=== PATIENT | male | born 1950 | race Caucasian/White ===

== ENCOUNTER 2018-02-17 06:35 | Inpatient (IN) | payer MEDICARE ==
[~2018-02-17] VITALS: Ht 170.2 cm; Wt 107.8 kg
[2018-02-17 07:32] LABS: Basophils # (auto) 0.1 uL; Basophils % (auto) 0.8 % (0.0-2.0); Eosinophils # (auto) 0.1 uL; Eosinophils % (auto) 1.8 % (0.0-7.0); Hemoglobin 15.6 g/dL (13.5-17.5); Lymphocytes # (auto) 1.1 uL; Lymphocytes % (auto) 14.7 % (10.0-50.0); Mean Corpuscular Hemoglobin 31.9 pg (28.0-32.0); Mean Corpuscular Hgb Conc. 33.8 g/dL (32.0-36.0); Mean Corpuscular Volume 94.4 fL (80.0-100.0); Monocytes # (auto) 0.6 uL; Monocytes % (auto) 7.4 % (0.0-12.0); Neutrophils # (auto) 5.7 uL; Neutrophils % (auto) 75.3 % (37.0-80.0); Platelet Count (auto) 139 10^3/uL (140-450); Red Blood Cells 4.88 10^6/uL (4.5-5.90); Red Cell Distribution Width 14.5 % (11.8-14.3); White Blood Cell 7.5 10^3/uL (4.4-10.8)
[2018-02-17 07:48] LABS: Albumin 3.9 g/dL (3.4-5.0); Anion Gap 10 (5-15); BUN/Creatinine Ratio 14.4; Blood Urea Nitrogen 24 mg/dL (7-18); Calcium 9.1 mg/dL (8.5-10.1); Carbon Dioxide 24 mmol/L (21-32); Chloride 107 mmol/L (98-107); GFR African American 53 mL/min; GFR Non-African American 44 mL/min; Glucose 138 mg/dL (74-106); Potassium 3.6 mmol/L (3.5-5.1); Sodium 141 mmol/L (136-145)
[2018-02-17 07:53] LABS: Alanine Aminotransferase 47 U/L (16-61); Alkaline Phosphatase 100 U/L (45-117); Aspartate Aminotransferase 28 U/L (15-37); Bilirubin, Total 0.4 mg/dL (0.2-1.0); Total Protein 8.1 g/dL (6.4-8.2)
[2018-02-17] MEDS ORDERED: SODIUM CHLORIDE 0.9% 1,000 ML IVB ONE (07:53)
[2018-02-17] MEDS ORDERED: KETOROLAC TROMETH 30 MG/ML 1ML VIAL IV ONE ×2 (08:00→21:15)
[2018-02-17] MEDS ORDERED: ONDANSETRON HCL 4 MG/2 ML VIAL IV ONE (08:00)
[2018-02-17] MEDS: SODIUM CHLORIDE 0.9% 1,000 ML IV SCH ×6 (09:54→22:30)
[2018-02-17] MEDS ORDERED: MORPHINE SULFATE 8mg/ml INJ SDV IV PRN ×2 (10:00)
[2018-02-17] MEDS ORDERED: cefTRIAXone 1GM/10ml IVPUSH 10 ML IV ONE (10:00)
[2018-02-17] MEDS ORDERED: TEMAZEPAM 15 MG CAP PO PRN (10:00)
[2018-02-17] MEDS ORDERED: NITROGLYCERIN 0.4 MG SL TAB SL PRN (10:00)
[2018-02-17] MEDS ORDERED: DEXTROSE (50%) 50ML SYRG IV PRN (10:00)
[2018-02-17] MEDS: PANTOPRAZOLE 40 MG TAB PO SCH (10:00)
[2018-02-17] MEDS ORDERED: LORazepam 0.5 MG TAB PO PRN (10:00)
[2018-02-17 10:19] LABS: Amylase 44 U/L (25-115); Lipase 104 U/L (73-393)
[2018-02-17 12:00] VITALS: BP 125/79
[2018-02-17 12:04] VITALS: BP 125/79
[2018-02-17] MEDS ORDERED: ALLO300T2 PO (12:14)
[2018-02-17] MEDS ORDERED: FURO20TA3 PO (12:14)
[2018-02-17] MEDS ORDERED: BENA10TA9 PO (12:14)
[2018-02-17] MEDS ORDERED: POTA10TA51 PO (12:14)
[2018-02-17] MEDS ORDERED: ATEN-60 PO (12:14)
[2018-02-17] MEDS: ACCU-CHEK COMFORT CURVE STRIP VI SCH ×2 (13:10→17:39)
[2018-02-17] MEDS: HYDROcodone-ACET 5/325MG TAB PO PRN ×2 (14:58→22:27)
[2018-02-17 15:25] LABS: Urine Bacteria NONE SEEN /hpf (None Seen); Urine Blood 1+ /uL (Negative); Urine Mucus FEW (None Seen); Urine Specific Gravity 1.025 (1.001-1.035); Urine WBC 6 /hpf (0 - 3)
[2018-02-17 16:00] VITALS: BP 123/80
[2018-02-17] MEDS: PROMETHAZINE HCL 25 MG/ML 1ML IV PRN (21:31)
[2018-02-17 22:00] VITALS: BP 140/89
[2018-02-18 05:00] VITALS: BP 110/74
[2018-02-18] MEDS: SODIUM CHLORIDE 0.9% 1,000 ML IV SCH (05:12)
[2018-02-18] MEDS: MEPERIDINE HCL (25 MG/ML) 1ML VIAL IV PRN (06:00)
[2018-02-18] MEDS: ACCU-CHEK COMFORT CURVE STRIP VI SCH ×4 (06:00→17:06)
[2018-02-18] MEDS: PROMETHAZINE HCL 25 MG/ML 1ML IV PRN ×2 (06:33→20:23)
[2018-02-18 06:48] LABS: BUN/Creatinine Ratio 12.7; Calcium 8.2 mg/dL (8.5-10.1)
[2018-02-18 06:50] LABS: Bilirubin, Total 0.5 mg/dL (0.2-1.0); Total Protein 6.7 g/dL (6.4-8.2)
[2018-02-18 07:05] LABS: Potassium 4.3 mmol/L (3.5-5.1)
[2018-02-18 08:00] VITALS: BP 129/74
[2018-02-18] MEDS: PANTOPRAZOLE 40 MG TAB PO SCH (09:30)
[2018-02-18] MEDS: cefTRIAXone 1GM/10ml IVPUSH 10 ML IV SCH (09:30)
[2018-02-18 12:42] VITALS: BP 138/73
[2018-02-18 16:33] VITALS: BP 149/87
[2018-02-18] MEDS: HYDROcodone-ACET 5/325MG TAB PO PRN (17:18)
[2018-02-18 22:00] VITALS: BP 152/81
[2018-02-19 05:00] VITALS: BP 128/85
[2018-02-19 06:05] LABS: Basophils # (auto) 0 uL; Basophils % (auto) 0.4 % (0.0-2.0); Eosinophils # (auto) 0.2 uL; Eosinophils % (auto) 2.5 % (0.0-7.0); Hemoglobin 13.3 g/dL (13.5-17.5); Lymphocytes # (auto) 0.8 uL; Lymphocytes % (auto) 9.2 % (10.0-50.0); Mean Corpuscular Hemoglobin 32.2 pg (28.0-32.0); Mean Corpuscular Hgb Conc. 34.2 g/dL (32.0-36.0); Mean Corpuscular Volume 94.1 fL (80.0-100.0); Monocytes # (auto) 0.8 uL; Monocytes % (auto) 9.7 % (0.0-12.0); Neutrophils # (auto) 6.8 uL; Neutrophils % (auto) 78.2 % (37.0-80.0); Nucleated Red Blood Cells % 0.2 %; Platelet Count (auto) 106 10^3/uL (140-450); Red Blood Cells 4.14 10^6/uL (4.5-5.90); Red Cell Distribution Width 14.1 % (11.8-14.3); White Blood Cell 8.7 10^3/uL (4.4-10.8)
[2018-02-19 06:22] LABS: Albumin 3.2 g/dL (3.4-5.0); BUN/Creatinine Ratio 12.3; Bilirubin, Total 0.7 mg/dL (0.2-1.0); Calcium 8.3 mg/dL (8.5-10.1); Total Protein 6.8 g/dL (6.4-8.2)
[2018-02-19 09:26] VITALS: BP 137/80
[2018-02-19] MEDS: PANTOPRAZOLE 40 MG TAB PO SCH (09:30)
[2018-02-19] MEDS: cefTRIAXone 1GM/10ml IVPUSH 10 ML IV SCH (09:30)
[2018-02-19] MEDS: HYDROcodone-ACET 5/325MG TAB PO PRN ×2 (12:05→18:59)
[2018-02-19] MEDS: SODIUM CHLORIDE 0.9% 1,000 ML IV SCH ×2 (12:05→21:48)
[2018-02-19 13:00] VITALS: BP 142/84
[2018-02-19] MEDS: ACETAMINOPHEN 500 MG TAB PO PRN (15:52)
[2018-02-19 17:22] VITALS: BP 142/89
[2018-02-19] MEDS: PROMETHAZINE HCL 25 MG/ML 1ML IV PRN (21:01)
[2018-02-19] MEDS: MEPERIDINE HCL (25 MG/ML) 1ML VIAL IV PRN (21:01)
[2018-02-19 22:00] VITALS: BP 124/79
[2018-02-20 05:00] VITALS: BP 135/89
[2018-02-20 06:07] LABS: Basophils # (auto) 0 uL; Basophils % (auto) 0.2 % (0.0-2.0); Eosinophils # (auto) 0.2 uL; Eosinophils % (auto) 2.5 % (0.0-7.0); Hematocrit 39.1 % (41.0-53.0); Hemoglobin 13.1 g/dL (13.5-17.5); Lymphocytes # (auto) 0.9 uL; Lymphocytes % (auto) 8.9 % (10.0-50.0); Mean Corpuscular Hgb Conc. 33.5 g/dL (32.0-36.0); Mean Corpuscular Volume 95.7 fL (80.0-100.0); Monocytes # (auto) 1.1 uL; Monocytes % (auto) 11.6 % (0.0-12.0); Neutrophils # (auto) 7.4 uL; Neutrophils % (auto) 76.8 % (37.0-80.0); Nucleated Red Blood Cells % 0.1 %; Platelet Count (auto) 106 10^3/uL (140-450); Red Blood Cells 4.09 10^6/uL (4.5-5.90); Red Cell Distribution Width 14.5 % (11.8-14.3); White Blood Cell 9.7 10^3/uL (4.4-10.8)
[2018-02-20 06:12] LABS: Calcium 8.4 mg/dL (8.5-10.1); Potassium 4.1 mmol/L (3.5-5.1)
[2018-02-20 06:18] LABS: Bilirubin, Total 0.9 mg/dL (0.2-1.0); Total Protein 6.7 g/dL (6.4-8.2)
[2018-02-20 08:00] VITALS: BP 129/91
[2018-02-20] MEDS: HYDROcodone-ACET 5/325MG TAB PO PRN ×2 (08:31→20:26)
[2018-02-20] MEDS: SODIUM CHLORIDE 0.9% 1,000 ML IV SCH ×2 (09:31→17:21)
[2018-02-20] MEDS: cefTRIAXone 1GM/10ml IVPUSH 10 ML IV SCH (09:48)
[2018-02-20] MEDS: PANTOPRAZOLE 40 MG TAB PO SCH (09:48)
[2018-02-20] MEDS: PROMETHAZINE HCL 25 MG/ML 1ML IV PRN (12:40)
[2018-02-20] MEDS: ACETAMINOPHEN 500 MG TAB PO PRN (12:40)
[2018-02-20 12:43] VITALS: BP 128/76
[2018-02-20] MEDS ORDERED: MANNITOL 20 % (20GM/100ML) 62.5 ML IV ONE (14:45)
[2018-02-20 17:11] VITALS: BP 158/92
[2018-02-20] MEDS: TAMSULOSIN HYDROCHLORIDE 0.4 MG CAP PO SCH (17:21)
[2018-02-20 22:00] VITALS: BP 145/49
[2018-02-21] MEDS: SODIUM CHLORIDE 0.9% 1,000 ML IV SCH ×3 (00:04→23:46)
[2018-02-21] MEDS: ACETAMINOPHEN 500 MG TAB PO PRN (00:04)
[2018-02-21 05:00] VITALS: BP 114/87
[2018-02-21] MEDS: PROMETHAZINE HCL 25 MG/ML 1ML IV PRN (06:16)
[2018-02-21 08:00] VITALS: BP 142/89
[2018-02-21 08:34] LABS: Partial Thromboplastin Time 31.7 sec (23.78-33.04); Prothrombin Time 10.7 sec (9.27-12.13)
[2018-02-21] MEDS: cefTRIAXone 1GM/10ml IVPUSH 10 ML IV SCH (08:36)
[2018-02-21] MEDS: KETOROLAC TROMETH 30 MG/ML 1ML VIAL IV PRN ×2 (08:46→17:27)
[2018-02-21 08:52] VITALS: BP 142/89
[2018-02-21] MEDS: PANTOPRAZOLE 40 MG TAB PO SCH (09:20)
[2018-02-21 12:44] VITALS: BP 132/78
[2018-02-21 16:54] VITALS: BP 154/92
[2018-02-21] MEDS: TAMSULOSIN HYDROCHLORIDE 0.4 MG CAP PO SCH (17:18)
[2018-02-21 22:00] VITALS: BP 127/85
[2018-02-22] MEDS: PROMETHAZINE HCL 25 MG/ML 1ML IV PRN (03:07)
[2018-02-22] MEDS: KETOROLAC TROMETH 30 MG/ML 1ML VIAL IV PRN ×3 (03:07→17:26)
[2018-02-22 05:00] VITALS: BP 135/89
[2018-02-22 08:00] VITALS: BP 139/90
[2018-02-22 09:00] VITALS: BP 139/90
[2018-02-22] MEDS: PANTOPRAZOLE 40 MG TAB PO SCH (09:23)
[2018-02-22] MEDS: cefTRIAXone 1GM/10ml IVPUSH 10 ML IV SCH (09:23)
[2018-02-22] MEDS: SODIUM CHLORIDE 0.9% 1,000 ML IV SCH ×2 (09:24→19:48)
[2018-02-22 11:43] LABS: BUN/Creatinine Ratio 11.2; Potassium 3.9 mmol/L (3.5-5.1)
[2018-02-22 12:00] VITALS: BP 143/88
[2018-02-22] MEDS ORDERED: ONDANSETRON HCL 4 MG/2 ML VIAL ONE (12:10)
[2018-02-22] MEDS ORDERED: PROPOFOL 10 MG/ML 20 ML IV ONE (12:10)
[2018-02-22] MEDS ORDERED: fentaNYL CITRATE 100 MCG/2 ML VL ONE (12:10)
[2018-02-22] MEDS ORDERED: MIDAZOLAM HCL 1MG/1ML-2 ML VIAL ONE (12:10)
[2018-02-22] MEDS ORDERED: SODIUM CHLORIDE LOCK 10 ML ONE (12:10)
[2018-02-22] MEDS ORDERED: METOCLOPRAMIDE HCL 5MG/ml INJ 2ml VIAL IV ONE (12:30)
[2018-02-22] MEDS ORDERED: fentaNYL CITRATE 100 MCG/2 ML VL IV ONE (13:00)
[2018-02-22 17:00] VITALS: BP 140/72
[2018-02-22] MEDS: TAMSULOSIN HYDROCHLORIDE 0.4 MG CAP PO SCH (17:26)
[2018-02-22 22:00] VITALS: BP 145/88
[2018-02-23] MEDS: SODIUM CHLORIDE 0.9% 1,000 ML IV SCH (00:47)
[2018-02-23] MEDS: ACETAMINOPHEN 500 MG TAB PO PRN (04:26)
[2018-02-23 05:17] VITALS: BP 138/83
[2018-02-23 09:04] VITALS: BP 127/86
[2018-02-23] MEDS: cefTRIAXone 1GM/10ml IVPUSH 10 ML IV SCH (09:17)
[2018-02-23] MEDS: PANTOPRAZOLE 40 MG TAB PO SCH (09:17)
[2018-02-23 11:45] VITALS: BP 127/86
== END 2018-02-23 13:10 | disposition home or self-care (01) | DRG 690 ==
LOC: ER 06:35 → TELE 06:36 → TELE-WESTW 11:35
PROVIDERS: ADMIT Internal Medicine; ATTEND Family Medicine
PROC: 0TJB8ZZ Inspection of Bladder, Via Natural or Artificial Opening Endoscopic (ICD-10-PCS; principal; 2018-02-22 12:36)
DX: N13.6 Pyonephrosis (principal); N17.0 Acute kidney failure with tubular necrosis; K80.20 Calculus of gallbladder without cholecystitis without obstruction; I12.9 Hypertensive chronic kidney disease with stage 1 through stage 4 chronic kidney disease, or unspecified chronic kidney disease; N18.3 Chronic kidney disease, stage 3 (moderate); N40.0 Benign prostatic hyperplasia without lower urinary tract symptoms; F41.9 Anxiety disorder, unspecified; G47.00 Insomnia, unspecified; K57.30 Diverticulosis of large intestine without perforation or abscess without bleeding; R73.9 Hyperglycemia, unspecified; M10.9 Gout, unspecified; R79.89 Other specified abnormal findings of blood chemistry; Z88.1 Allergy status to other antibiotic agents; Z79.899 Other long term (current) drug therapy; Z71.3 Dietary counseling and surveillance
CPT/HCPCS: 36415; 71045; 74176; 80048; 80053; 81001; 82150; 82962; 83036; 83690; 84484; 85025; 85610; 85652; 85730; 86850; 86900; 86901; 87086; 93005; 94761; 96361; 96374; 96375; J1885; J2250; J2405; J2704

== ENCOUNTER 2024-11-10 22:05 | Inpatient (IN) | payer MEDICARE ==
[~2024-11-10] VITALS: Ht 165.1 cm; Wt 103.4 kg
[~2024-11-10 22:05] MED LIST: ALLO300T2 PO; ATEN-60 PO; BENA10TA90 PO; FURO20TA3 PO; POTA-36 PO
--- NOTE | 2024-11-10 22:37 | ED.PDOC ---
History of Present Illness HPI Comments 74-year-old male came to ER via EMS for flu like symptoms. Patient states, he has been having intermittent episodes of "shakes" since last night. He has been feeling unwell and weak. Complaining also of lower abdominal pain. Denies any fever. Persistence of symptoms "shakes" prompted patient to come to the ER. Chief Complaint: Flu like Time Seen by MD: 22:36 Primary Care Provider: unknown Reviewed Notes: Nurses Notes Allergies: Coded Allergies: Levofloxacin (Verified Allergy, Unknown, 02/17/18) Home Meds Reported Medications Benazepril Hcl (Benazepril Hcl) 10 Mg Tab, 1 TAB PO DAILY, #30 TAB 5 Refills 02/17/18 Allopurinol (Allopurinol) 300 Mg Tab, 300 MG PO DAILY for 30 Days, MG 02/17/18 Furosemide (Furosemide) 20 Mg Tab, 20 MG PO DAILY for 30 Days, MG 02/17/18 Potassium Chloride (POTASSIUM CHLORIDE CR) 10 Meq Tb, 1 TAB PO DAILY, #30 TAB 5 Refills 02/17/18 Atenolol (Atenolol) 25 Mg Tab, 25 MG PO DAILY for 30 Days, MG 02/17/18 Information Source: Patient Mode of Arrival: EMS Severity: Moderate Timing: Hours Duration: Intermittent Past Medical History PAST MEDICAL HISTORY: Gout, HTN Surgical History: Denies all surgeries Family History Family History: Reviewed,noncontributory to illness Social History Smoker: Non-Smoker Alcohol: Rarely Drugs: Denies Drug Use Lives In: Home Constitutional: reports: weakness; denies: chills, diaphoresis, fatigue, fever, malaise, sweats, others EENTM: denies: blurred vision, double vision, ear bleeding, ear discharge, ear drainage, ear pain, ear ringing, eye pain, eye redness, hearing loss, mouth pain, mouth swelling, nasal discharge, nose bleeding, nose congestion, nose pain, photophobia, tearing, throat pain, throat swelling, voice changes, others Respiratory: denies: cough, hemoptysis, orthopnea, SOB at rest, shortness of breath, SOB with excertion, stridor, wheezing, others Cardiovascular: denies: chest pain, dizzy spells, diaphoresis, Dyspnea on exertion, edema, irregular heart beat, left arm pain, lightheadedness, palpitations, PND, syncope, others Gastrointestinal: denies: abdomen distended, abdominal pain, blood streaked bowels, constipated, diarrhea, dysphagia, difficulty swallowing, hematemesis, melena, nausea, poor appetite, poor fluid intake, rectal bleeding, rectal pain, vomiting, others Genitourinary: denies: burning, dysuria, flank pain, frequency, hematuria, incontinence, penile discharge, penile sore, pain, testicle pain, testicle swelling, urgency, others Neurological: reports: tremors; denies: dizziness, fainting, headache, left sided numbness, left sided weakness, numbness, paresthesia, pre-existing deficit, right sided numbness, right sided weakness, seizure, speech problems, tingling, weakness, others Musculoskeletal: denies: back pain, gout, joint pain, joint swelling, muscle pain, muscle stiffness, neck pain, others Integumetry: denies: bruises, change in color, change in hair/nails, dryness, laceration, lesions, lumps, rash, wounds, others Allergic/Immunocompromised: denies: Difficulty Healing, Frequent Infections, Hives, Itching, others Hematologic/Lymphatic: denies: anemia, blood clots, easy bleeding, easy bruising, swollen glands, others Endocrine: denies: excessive hunger, excessive sweating, excessive thirst, excessive urination, flushing, intolerance to cold, intolerance to heat, une xplained weight gain, unexplained weight loss, others Psychiatric: denies: anxiety, bipolar disorder, depression, hopeless, panic disorder, schizophrenia, sleepless, suicidal, others Physical Exam General Appearance: No Apparent Distress, Normal HEENT: Normal ENT Inspection, Pharynx Normal, TMs Normal Neck: Full Range of Motion, Non-Tender, Normal, Normal Inspection Respiratory: Chest Non-Tender, Lungs Clear, No Accessory Muscle Use, No Respiratory Distress, Normal Breath Sounds Cardiovascular: No Edema, No JVD, No Murmur, No Gallop, Normal Peripheral Pulses, Regular Rate/Rhythm Breast Exam: Deferred Gastrointestinal: No Organomegaly, Non Tender, No Pulsatile Mass, Normal Bowel Sounds, Soft Genitalia: Deferred Pelvic: Deferred Rectal: Deferred Extremities: No calf tenderness, Normal capillary refill, Normal inspection, Normal range of motion, Non-tender, No pedal edema Musculoskeletal : Apperance: Normal Neurologic: Alert, front elevator operator II-XII nml as Tested, No Motor Deficits, Normal Affect, Normal Mood, No Sensory Deficits Cerebellar Function: Normal Reflexes: Normal Skin: Dry, Normal Color, Warm Lymphatic: No Adenopathy Was a procedure done? Was a procedure done?: No Differential Dx Considerations may include: Anemia, electrolyte imbalance, viral syndrome, influenza X-Ray, Labs, Meds, VS Vital Signs Date Time Temp Pulse Resp B/P (MAP) Pulse Ox O2 Delivery O2 Flow Rate FiO2 11/10/24 22:20 100.3 120 20 102/61 (75) 94 11/10/24 22:12 117 Lab Test 11/11/24 01:57 11/10/24 23:30 11/10/24 22:48 11/10/24 22:31 Range/Units Troponin I High Sensitivity Pending 94 *H 89 *H </=54 ng/L Influenza Type A Antigen Negative Negative Influenza Type B Antigen Negative Negative SARS-CoV-2 Antigen (Rapid) Negative NEGATIVE White Blood Count 6.3 4.4-10.8 10^3/uL Red Blood Count 4.32 L 4.5-5.90 10^6/uL Hemoglobin 13.2 L 13.5-17.5 g/dL Hematocrit 40.5 L 41.0-53.0 % Mean Corpuscular Volume 93.8 80.0-100.0 fL Mean Corpuscular Hemoglobin 30.6 28.0-32.0 pg Mean Corpuscular Hemoglobin Concent 32.6 32.0-36.0 g/dL Red Cell Distribution Width 15.6 H 11.8-14.3 % Platelet Count 100 L 140-450 10^3/uL Mean Platelet Volume 10.2 6.9-10.8 fL Neutrophils (%) (Auto) 92.8 H 37.0-80.0 % Lymphocytes (%) (Auto) 4.5 L 10.0-50.0 % Monocytes (%) (Auto) 0.8 0.0-12.0 % Eosinophils (%) (Auto) 0.6 0.0-7.0 % Basophils (%) (Auto) 1.3 0.0-2.0 % Neutrophils # (Auto) 5.8 1.6-8.6 10 ^3/uL Lymphocytes # (Auto) 0.3 L 0.4-5.4 10 ^3/uL Monocytes # (Auto) 0.1 0-1.3 10 ^3/uL Eosinophils # (Auto) 0 0-0.8 10 ^3/uL Basophils # (Auto) 0.1 0-0.2 10 ^3/uL Nucleated Red Blood Cells 0.1 % Sodium Level 139 136-145 mmol/L Potassium Level 4.2 3.5-5.1 mmol/L Chloride Level 105 98-107 mmol/L Carbon Dioxide Level 19 L 20-31 mmol/L Anion Gap 15 5-15 Blood Urea Nitrogen 31 H 9-23 mg/dL Creatinine 2.16 H 0.700-1.30 mg/dL Glomerular Filtration Rate Calc 32 >90 mL/min BUN/Creatinine Ratio 14.4 10.0-20.0 Serum Glucose 106 74-106 mg/dL Calcium Level 9.8 8.7-10.4 mg/dL Total Bilirubin 1.3 H 0.2-1.0 mg/dL Aspartate Amino Transferase (AST) 24 13-40 U/L Alanine Aminotransferase (ALT) 25 7-40 U/L Alkaline Phosphatase 102 46-116 U/L Total Protein 7.1 5.7-8.2 g/dL Albumin 4.1 3.2-4.8 g/dL Lipase 28 12-53 U/L Current Medications Medications (Trade) Dose Ordered Sig/Akhil Route Start Time Stop Time Status Last Admin Sodium Chloride 1,000 ml @ 1,000 mls/hr Q1H ONCE IV 11/10/24 22:15 11/10/24 23:14 DC 11/10/24 22:48 Ondansetron HCl (Zofran) 4 mg ONCE ONCE IV 11/10/24 22:15 11/10/24 22:16 DC 11/10/24 22:48 Time of 1ST Reevaluation: 22:30 Reevaluation 1ST: Improved Patient Education/Counseling: Diagnosis, Treatment Family Education/Counseling: No Family Present Departure 1 Departure Time of Disposition: 02:04 (Patient presented with abdominal pain that was concerning for possible appendicits, gastritis, cholecystitis, colitis, gastroenteritis, sbo, or orther possible surgical emergency. Data: 1. I ordered and reviewed the result of at least 3 labs including a CBC, BMP, and Urinalysis. 2. I independently interpreted the following tests: CT Abdoment and Pelvis is concerning for left renal colic with hydro nephrosis .Risk:This patient has a high risk of morbidity due to further diagnostic testing or treatment and may suffer from an acute abdominal process disorder. Workup reveals elevated troponin and stone in the left kidney. and patient should be admitted for further workup. and possible expert consultation. ) Impression: Primary Impression: Renal colic on left side Additional Impressions: Elevated troponin Generalized weakness Disposition: ADMITTED INPATIENT Admit to: Med Surg Condition: Guarded Critical Care Note Critical Care Time?: Yes Critical care comment: Intractable abdominal pain Authorized and Performed by: Basilio Daniels MD Total critical care time: Approximately 40 minutes Due to a high probability of clinically significant, life threatening deteriora tion, the patient required my highest level of preparedness to intervene emergently and I personally spent this critical care time directly and personally managing the patient. This critical care time included obtaining a history; examining the patient; pulse oximetry; ordering and review of studies; arranging urgent treatment with development of a management plan; evaluation of patient's response to treatment; frequent reassessment; and, discussions with other providers. This critical care time was performed to assess and manage the high probability of imminent, life-threatening deterioration that could result in multi-organ failure. It was exclusive of separately billable procedures and treating other patients and teaching time. Please see my other sections and the rest of the note for further information on patient assessment and treatment. Stability Stability form required: No Heart Score Heart Score: Heart Score Response (Comments) Value History N/A 0 EKG N/A 0 Age N/A 0 Risk Factors N/A 0 Troponin N/A 0 Total 0 I personally scribed for BASILIO DANIELS MD ([email or web address]) on 11/10/24 at 22:37. Electronically submitted by Jose Chau ([email or web address]). BASILIO DANIELS MD Nov 10, 2024 22:37
[2024-11-10] MEDS: MORPHINE SULFATE 4 MG/ML SYR/VIAL IV ONE (22:44)
[2024-11-10 22:46] LABS: Basophils # (auto) 0.1 10 ^3/uL (0-0.2); Basophils % (auto) 1.3 % (0.0-2.0); Eosinophils # (auto) 0 10 ^3/uL (0-0.8); Eosinophils % (auto) 0.6 % (0.0-7.0); Hematocrit 40.5 % (41.0-53.0); Hemoglobin 13.2 g/dL (13.5-17.5); Lymphocytes # (auto) 0.3 10 ^3/uL (0.4-5.4); Lymphocytes % (auto) 4.5 % (10.0-50.0); Mean Corpuscular Hemoglobin 30.6 pg (28.0-32.0); Mean Corpuscular Hgb Conc. 32.6 g/dL (32.0-36.0); Mean Corpuscular Volume 93.8 fL (80.0-100.0); Monocytes # (auto) 0.1 10 ^3/uL (0-1.3); Monocytes % (auto) 0.8 % (0.0-12.0); Neutrophils # (auto) 5.8 10 ^3/uL (1.6-8.6); Neutrophils % (auto) 92.8 % (37.0-80.0); Nucleated Red Blood Cells % 0.1 %; Platelet Count (auto) 100 10^3/uL (140-450); Red Blood Cells 4.32 10^6/uL (4.5-5.90); Red Cell Distribution Width 15.6 % (11.8-14.3); White Blood Cell 6.3 10^3/uL (4.4-10.8)
[2024-11-10] MEDS: SODIUM CHLORIDE 0.9% 1,000 ML IV ONE (22:48)
[2024-11-10] MEDS: ONDANSETRON HCL 4 MG/2 ML VIAL IV ONE (22:48)
[2024-11-10 23:03] LABS: Alanine Aminotransferase 25 U/L (7-40); Albumin 4.1 g/dL (3.2-4.8); Alkaline Phosphatase 102 U/L (46-116); Anion Gap 15 (5-15); Aspartate Aminotransferase 24 U/L (13-40); BUN/Creatinine Ratio 14.4 (10.0-20.0); Calcium 9.8 mg/dL (8.7-10.4); Chloride 105 mmol/L (98-107); Glucose 106 mg/dL (74-106); Lipase 28 U/L (12-53); Potassium 4.2 mmol/L (3.5-5.1); Sodium 139 mmol/L (136-145); Total Protein 7.1 g/dL (5.7-8.2)
[2024-11-10 23:04] LABS: Bilirubin, Total 1.3 mg/dL (0.2-1.0); Blood Urea Nitrogen 31 mg/dL (9-23); Carbon Dioxide 19 mmol/L (20-31)
[2024-11-11 00:10] LABS: Rapid Influenza A Negative (Negative); Rapid Influenza B Negative (Negative)
[2024-11-11 00:11] LABS: COVID19 ANTIGEN SOFIA FIA NEGATIVE (NEGATIVE)
[2024-11-11] MEDS: IOHEXOL 300 MG/ML 100ML BOTTLE IJ ONE (00:16)
--- NOTE | 2024-11-11 00:29 | DVH ---
CHEST RADIOGRAPH Indication: abdominal pain Technique: Single frontal view of the chest was obtained COMPARISON: None FINDINGS: Lines and Tubes: None Lungs: Mild bibasilar subsegmental atelectasis/consolidation. Pleura: No effusion. No pneumothorax. Cardiomediastinal contours: Unremarkable Bones: Unremarkable IMPRESSION: Mild bibasilar subsegmental atelectasis/consolidation.
--- NOTE | 2024-11-11 01:05 | DVH ---
Exam: CT CT AB PEL WITH IV CON ONLY History: abdominal pain COMPARISON: None Technique: Multidetector spiral CT of the abdomen and pelvis was performed from lung bases to pubic s ymphysis. Intravenous contrast was administered during this examination. Portal venous imaging was obtained. Axial, coronal and sagittal multiplanar reformats were performed by the technologist on a separate workstation. Radiation Dose : 1. Abdomen/Pelvis: CTDIvol mGy, DLP mGy*cm. CONTRAST: Type of contrast: Contrast injected: ml Contrast ingested: ml Findings: Lung Bases: No abnormality demonstrated. Liver: Liver is normal in size. No focal lesions. Normal hepatic vascular enhancement. Gallbladder and Biliary Tree: Calcified gallstone measuring approximately 2 cm is noted in the gallbl adder which otherwise appears unremarkable. No evidence of biliary ductal dilatation. Spleen: No abnormality demonstrated. Pancreas: No abnormality demonstrated. Adrenal Glands: No abnormality demonstrated. Kidneys: There is perinephric stranding around the left kidney and mild left-sided hydronephrosis sec ondary to an obstructing calculus in the left proximal ureter measuring approximately 10 mm. Addition al nonobstructing calculi are noted in the upper and lower poles of the left kidney and in the lower pole of the right kidney. Bilateral renal cysts noted. Bladder: Unremarkable Bowel: Stomach appears grossly unremarkable. No dilated or thick-walled loops of large or small bowel noted. Left-sided colonic diverticulosis predominantly in the sigmoid colon without evidence of acu te diverticulitis. Appendix is not visualized; however, no secondary findings of acute appendicitis i dentified. Ascites: Absent Lymphadenopathy: No evidence of lymphadenopathy. Abdominal Wall and Mesentery: Small fat containing umbilical hernia. Vasculature: Mild atherosclerotic changes in abdominal aorta and iliac arteries without aneurysm. Pelvic Organs: Prostatomegaly. Calcifications / calculi noted in the prostate gland / base of urinary bladder. Musculoskeletal: No bony lesions are fracture. IMPRESSION: Perinephric stranding around the left kidney and mild left-sided hydronephrosis secondary to an obstr ucting calculus in the left proximal ureter measuring approximately 10 mm. Additional nonobstructing calculi in both kidneys. Left-sided colonic diverticulosis predominantly in the sigmoid colon without evidence of acute diver ticulitis. Cholelithiasis. Radiation optimization: All CT scans at this facility use at least one of these dose optimization terese hniques: automated exposure control mA and/or kV adjustment per patient size (includes targeted exam s where dose is matched to clinical indication) or iterative reconstruction.
[2024-11-11] MEDS: SODIUM CHLORIDE 0.9% 1,000 ML IV SCH ×3 (02:00→09:40)
[2024-11-11] MEDS: KETOROLAC TROMETH 30 MG/ML 1ML VIAL IV ONE (03:43)
[2024-11-11] MEDS: TAMSULOSIN HYDROCHLORIDE 0.4 MG CAP PO ONE (03:56)
[2024-11-11] MEDS: cefTRIAXone 1GM/50ML D5W 50 ML IV ONE (03:56)
[2024-11-11] MEDS: SODIUM CHLORIDE 0.9% 2,000 ML IV ONE (04:07)
[2024-11-11 04:12] VITALS: PULSE 84; RESP 17; O2SAT 93
[2024-11-11] MEDS ORDERED: NITROGLYCERIN 0.4 MG SL TAB SL PRN (04:15)
[2024-11-11] MEDS ORDERED: DOCUSATE SOD 100 MG CAP PO PRN (04:15)
[2024-11-11] MEDS ORDERED: ONDANSETRON HCL 4 MG/2 ML VIAL IV PRN (04:15)
[2024-11-11] MEDS ORDERED: ACETAMINOPHEN 325 MG TAB PO PRN (04:15)
[2024-11-11] MEDS ORDERED: MORPHINE SULFATE INJ 2 MG/ml SYRG IV PRN (04:15)
[2024-11-11] MEDS ORDERED: hydrALAZINE HCL 20 MG/ML VL IV PRN (04:15)
[2024-11-11] MEDS: ASPirin 81 mg TAB PO ONE (04:44)
--- NOTE | 2024-11-11 04:46 | DVHHP2 ---
History of Present Illness Reason for Visit: Generalized weakness History of Present Illness The patient is a 74-year-old male with past medical history of gout and hypertension who presented to [facility] ED with complaint of generalized weakness. Patient reports symptoms progressively get worse with lower abdominal pain, episodes of tremors, getting worse that prompted this visit. Patient was seen and evaluated in the ED, laboratory data shows WBC 6.3, platelets 100, sodium 139, potassium 4.2, BUN 31, creatinine 2.16, GFR 32, glucose 106, total bilirubin 1.3, troponin 89, blood pressure 102/61, heart rate 120 trending down to 90, temperature 100.3 F trending down to 97.8 F, O2 saturation 94% on oxygen. Abdomen/pelvis CT revealing perinephric stranding around the left kidney and mild left-sided hydronephrosis secondary to an obstructing calculus in the left proximal ureter measuring a proximally 10 mm, left-sided colonic diverticulosis predominantly in the sigmoid colon without evidence of acute diverticulitis, cholelithiasis. Chest x-ray revealing mild bibasilar subsegmental atelectasis/consolidations. Patient was started on IV antibiotic regimen Rocephin, please see medication orders section in the computer. On my assessment, patient denied chest pain, no headache, no dizziness, no abdominal pain, no diarrhea, no nausea, no vomiting, no chills. Patient was admitted for further evaluation and medical management. Past Medical History Gout, HTN Past Surgical History Denies all surgeries Family History Reviewed, noncontributory to the management of this case. Past Social History The patient lives at home, denies smoking, alcohol or illicit drugs abuse. Review of Systems Constitutional: Yes: Weakness; No: Fever, Chills, Sweats, Malaise, Other Eyes: No: Pain, Vision change, Conjunctivae inflammation, Eyelid inflammation, Other, Redness ENT: No: Ear pain, Ear discharge, Nose pain, Nose discharge, Nose congestion, Mouth pain, Mouth swelling, Throat pain, Throat swelling, Other Respiratory: No: Cough, Dry, Shortness of breath, SOB with excertion, Wheezing, Hemoptysis, Pleuritic Pain, Sputum, Wheezing, Other Cardiovascular: No: Chest Pain, Palpitations, Orthopnea, Paroxysmal Noc. Dyspnea, Edema, Lt Headedness, Other Gastrointestinal: No: Nausea, Vomiting, Abdominal Pain, Diarrhea, Constipation, Melena, Hematochezia, Other Genitourinary: No Dysuria, No Frequency, No Incontinence, No Hematuria, No Retention, No Other Musculoskeletal: No: other, neck pain, shoulder pain, arm pain, back pain, hand pain, leg pain, foot pain Skin: No: Rash, Lesions, Jaundice, Bruising, Other Neurological: Other (Tremors); No: Weakness, Numbness, Incoordination, Change in speech, Confusion, Seizures Allergies: Coded Allergies: Levofloxacin (Verified Allergy, Unknown, 02/17/18) Exam Vital Signs Vital Signs Date Time Temp Pulse Resp B/P (MAP) Pulse Ox O2 Delivery O2 Flow Rate FiO2 11/11/24 03:30 97.8 90 16 85/54 (64) 94 97.8 General Appearance: Alert, Oriented X3, Cooperative, No acute distress HEENT: Atraumatic, PERRLA, EOMI, Mucous membr. moist/pink Respiratory: Clear to auscultation, Normal air movement Cardiovascular: Regular rate, Normal S1, Normal S2, No murmurs Abdominal: Normal bowel sounds, Soft, No tenderness, No hepatospenomegaly, No masses Extremities: No clubbing, No cyanosis, No edema, Normal pulses, No tenderness/swelling Skin: No rashes, No breakdown, No significant lesion Neuro: Normal speech, Normal tone, Sensation intact, Cranial nerves 3-12 NL, Reflexes 2+, Other (Generalized weakness) Psych/Mental Status: Mental status NL, Mood NL Labs/Xrays Labs Test 11/11/24 01:57 11/10/24 22:48 11/10/24 22:31 Range/Units Troponin I High Sensitivity 102 *H </=54 ng/L Influenza Type A Antigen Negative Negative Influenza Type B Antigen Negative Negative SARS-CoV-2 Antigen (Rapid) Negative NEGATIVE White Blood Count 6.3 4.4-10.8 10^3/uL Red Blood Count 4.32 L 4.5-5.90 10^6/uL Hemoglobin 13.2 L 13.5-17.5 g/dL Hematocrit 40.5 L 41.0-53.0 % Mean Corpuscular Volume 93.8 80.0-100.0 fL Mean Corpuscular Hemoglobin 30.6 28.0-32.0 pg Mean Corpuscular Hemoglobin Concent 32.6 32.0-36.0 g/dL Red Cell Distribution Width 15.6 H 11.8-14.3 % Platelet Count 100 L 140-450 10^3/uL Mean Platelet Volume 10.2 6.9-10.8 fL Neutrophils (%) (Auto) 92.8 H 37.0-80.0 % Lymphocytes (%) (Auto) 4.5 L 10.0-50.0 % Monocytes (%) (Auto) 0.8 0.0-12.0 % Eosinophils (%) (Auto) 0.6 0.0-7.0 % Basophils (%) (Auto) 1.3 0.0-2.0 % Neutrophils # (Auto) 5.8 1.6-8.6 10 ^3/uL Lymphocytes # (Auto) 0.3 L 0.4-5.4 10 ^3/uL Monocytes # (Auto) 0.1 0-1.3 10 ^3/uL Eosinophils # (Auto) 0 0-0.8 10 ^3/uL Basophils # (Auto) 0.1 0-0.2 10 ^3/uL Nucleated Red Blood Cells 0.1 % Sodium Level 139 136-145 mmol/L Potassium Level 4.2 3.5-5.1 mmol/L Chloride Level 105 98-107 mmol/L Carbon Dioxide Level 19 L 20-31 mmol/L Anion Gap 15 5-15 Blood Urea Nitrogen 31 H 9-23 mg/dL Creatinine 2.16 H 0.700-1.30 mg/dL Glomerular Filtration Rate Calc 32 >90 mL/min BUN/Creatinine Ratio 14.4 10.0-20.0 Serum Glucose 106 74-106 mg/dL Calcium Level 9.8 8.7-10.4 mg/dL Total Bilirubin 1.3 H 0.2-1.0 mg/dL Aspartate Amino Transferase (AST) 24 13-40 U/L Alanine Aminotransferase (ALT) 25 7-40 U/L Alkaline Phosphatase 102 46-116 U/L Total Protein 7.1 5.7-8.2 g/dL Albumin 4.1 3.2-4.8 g/dL Lipase 28 12-53 U/L PATIENT: JUMANA JENNINGS ACCT: [id number] UNIT: [id number] : 1950 LOC: ER ROOM / BED: / AGE / SEX: 74 / M ADM STATUS: REG ER SERVICE 2213 ORDERING PHYSICIAN: BASILIO ANGULO MD PROCEDURE(s): ABPLIV - CT AB PEL WITH IV CON ONLY REASON: abdominal pain ORDER NUMBER(s): [id number], ACCESSION NUMBER(s): [id number] Exam: CT CT AB PEL WITH IV CON ONLY History: abdominal pain COMPARISON: None Technique: Multidetector spiral CT of the abdomen and pelvis was performed from lung bases to pubic symphysis. Intravenous contrast was administered during this examination. Portal venous imaging was obtained. Axial, coronal and sagittal multiplanar reformats were performed by the technologist on a separate workstation. Radiation Dose: 1. Abdomen/Pelvis: CTDIvol mGy, DLP mGy*cm. CONTRAST: Type of contrast: Contrast injected: ml Contrast ingested: ml Findings: Lung Bases: No abnormality demonstrated. Liver: Liver is normal in size. No focal lesions. Normal hepatic vascular enhancement. Gallbladder and Biliary Tree: Calcified gallstone measuring approximately 2 cm is noted in the gallbladder which otherwise appears unremarkable. No evidence of biliary ductal dilatation. Spleen: No abnormality demonstrated. Pancreas: No abnormality demonstrated. Adrenal Glands: No abnormality demonstrated. Kidneys: There is perinephric stranding around the left kidney and mild left- sided hydronephrosis secondary to an obstructing calculus in the left proximal ureter measuring approximately 10 mm. Additional nonobstructing calculi are noted in the upper and lower poles of the left kidney and in the lower pole of the right kidney. Bilateral renal cysts noted. Bladder: Unremarkable Bowel: Stomach appears grossly unremarkable. No dilated or thick-walled loops of large or small bowel noted. Left-sided colonic diverticulosis predominantly in the sigmoid colon without evidence of acute diverticulitis. Appendix is not visualized; however, no secondary findings of acute appendicitis identified. Ascites: Absent Lymphadenopathy: No evidence of lymphadenopathy. Abdominal Wall and Mesentery: Small fat containing umbilical hernia. Vasculature: Mild atherosclerotic changes in abdominal aorta and iliac arteries without aneurysm. Pelvic Organs: Prostatomegaly. Calcifications/calculi noted in the prostate gland/base of urinary bladder. Musculoskeletal: No bony lesions are fracture. IMPRESSION: Perinephric stranding around the left kidney and mild left-sided hydronephrosis secondary to an obstructing calculus in the left proximal ureter measuring approximately 10 mm. Additional nonobstructing calculi in both kidneys. Left-sided colonic diverticulosis predominantly in the sigmoid colon without evidence of acute diverticulitis. Cholelithiasis. ORDERING PHYSICIAN: BASILIO ANGULO MD PROCEDURE(s): CXRP - CHEST PORTABLE REASON: abdominal pain ORDER NUMBER(s): [id number], ACCESSION NUMBER(s): [id number] CHEST RADIOGRAPH Indication: abdominal pain Technique: Single frontal view of the chest was obtained COMPARISON: None FINDINGS: Lines and Tubes: None Lungs: Mild bibasilar subsegmental atelectasis/consolidation. Pleura: No effusion. No pneumothorax. Cardiomediastinal contours: Unremarkable Bones: Unremarkable IMPRESSION: Mild bibasilar subsegmental atelectasis/consolidation. Assessment/Plan Assessment/Plan Renal colic on left side Elevated troponin Fever, unspecified Left hydronephrosis Pneumonia, unspecified organisms Generalized weakness Acute on chronic renal failure Plan 1. Admit to telemetry unit 2. Breathing treatment 3. Pain control management 4. IV antibiotic management 5. Management of fluids and electrolytes 6. Consultation for hospitalist 7. Diagnostic test abdomen/pelvis CT 8. DVT prophylaxis-on aspirin 9. Repeat labs CBC, CMP in a.m. 10. Home medication reviewed and reconciled 11. Continue with current medical management 12. Treatment plan discussed with patient and RN. Patient verbalized understanding. Plan discussed with: Patient, Other (RN) My Orders Orders - CONCEPCIÓN ALCOCER DNP Procedure Category Date Status Time Complete Blood Count LAB 11/11/24 Transmitted 04:06 Comprehensive LAB 11/11/24 Transmitted Metabolic Panel 04:06 Tamsulosin PHA 11/11/24 Transmitted Hydrochloride (Flomax) 18:00 Allopurinol Tablet PHA 11/11/24 Transmitted (Zyloprim Tablet) 10:00 Aspirin Tablet PHA 11/11/24 Transmitted 10:00 Aspirin Tablet PHA 11/11/24 Transmitted 04:15 *[facility] CONS 11/11/24 Transmitted -[place] 04:06 Hydralazine Injection PHA 11/11/24 Transmitted (Apresoline Inject 04:15 Admit ADMIT 11/11/24 Transmitted 04:06 Allergies ANDREY 11/11/24 Transmitted 04:06 Code Status CODE 11/11/24 Transmitted 04:06 0.9% Ns 1000 Ml PHA 11/11/24 Transmitted 04:15 Oxygen Per Hour RT 11/11/24 Transmitted 04:06 Hydrocodone-Acet PHA 11/11/24 Transmitted 5/325mg Tab ([place] 04:15 Ondansetron Hcl PHA 11/11/24 Transmitted (Zofran) 04:15 Docusate Sodium [facility] 11/11/24 Transmitted Capsule (Colace 04:15 Complete Blood Count LAB 11/12/24 Verified 04:00 Comprehensive LAB 11/12/24 Verified Metabolic Panel 04:00 Cardiac DIET 11/11/24 Transmitted Diet-2gna,Lofat,Lochol Breakfast Condition: Serious [facility] 11/11/24 Transmitted 04:06 Acetaminophen Tablet [facility] 11/11/24 Transmitted (Tylenol Tablet) 04:15 Bedrest With Bathroom [facility] 11/11/24 Transmitted Privileg 04:06 Sequential [facility] 11/11/24 Transmitted Compression Device Nitroglycerin [facility] 11/11/24 Transmitted Sublingual (Ntrostat 04:15 Morphine Sulfate [facility] 11/11/24 Transmitted Injection 04:15 Stat Ekg For Chest [facility] 11/11/24 Transmitted Pain 04:06 Notify Md Of Changes [facility] 11/11/24 Transmitted From Base 04:06 Oil Deliverer For [facility] 11/11/24 Transmitted 24 Hours 04:06 Emergency Dysrhythmia [facility] 11/11/24 Transmitted Protocol 04:06 Rhythm Strips Once [facility] 11/11/24 Transmitted Every Shift 04:06 Oxygen By Nasal 11/11/24 Transmitted Cannula 04:06 Problem List: (1) Renal colic on left side (2) Elevated troponin (3) Fever, unspecified (4) Generalized weakness (5) Acute on chronic renal failure (6) Hydronephrosis, left (7) Pneumonia, unspecified organism Date of Service: Nov 11, 2024 Billing Provider: CONCEPCIÓN ALCOCER DNP Common Visit Codes: [id number] INP/OBS CARE (HIGH) CONCEPCIÓN ALCOCER DNP Nov 11, 2024 04:46
--- NOTE | 2024-11-11 04:51 | ECG ---
[facility] Test Date: 2024-11-10 Test Time: 22:12:28 Pat Name: JUAMNA JENNINGS Department: EMS Room: [address] [place] [address] Gender: M Medical Videographer: TIARA : 1950 Requested By: BASILIO ANGULO Order Number: [id number] Reading MD: Waqas Carvajal Measurements Intervals [place] Rate: 117 P: 43 PA: 158 QRS: -63 QRSD: 89 T: 37 QT: 302 QTc: 422 Interpretive Statements Sinus tachycardia Left anterior fascicular block Consider right ventricular hypertrophy Electronically Signed On 11-11-2024 18:48:53 PST by Waqas Carvajal Please click the below link to view image of tracing.
[2024-11-11] MEDS: AZITHROMYCIN 500MG/ 250ML 250 ML IV ONE (04:54)
[2024-11-11 05:29] LABS: Basophils # (auto) 0 10 ^3/uL (0-0.2); Eosinophils # (auto) 0 10 ^3/uL (0-0.8); Eosinophils % (auto) 0.1 % (0.0-7.0); Hematocrit 35.6 % (41.0-53.0); Hemoglobin 11.6 g/dL (13.5-17.5); Lymphocytes # (auto) 0.4 10 ^3/uL (0.4-5.4); Mean Corpuscular Hemoglobin 30.6 pg (28.0-32.0); Mean Corpuscular Hgb Conc. 32.5 g/dL (32.0-36.0); Monocytes # (auto) 0.9 10 ^3/uL (0-1.3); Monocytes % (auto) 5.2 % (0.0-12.0); Neutrophils # (auto) 16.3 10 ^3/uL (1.6-8.6); Neutrophils % (auto) 92.7 % (37.0-80.0); Platelet Count (auto) 75 10^3/uL (140-450); Red Blood Cells 3.79 10^6/uL (4.5-5.90); Red Cell Distribution Width 15.9 % (11.8-14.3); White Blood Cell 17.6 10^3/uL (4.4-10.8)
[2024-11-11 05:37] LABS: Alanine Aminotransferase 22 U/L (7-40); Albumin 3.5 g/dL (3.2-4.8); Alkaline Phosphatase 58 U/L (46-116); Anion Gap 11 (5-15); Aspartate Aminotransferase 21 U/L (13-40); BUN/Creatinine Ratio 14.2 (10.0-20.0); Calcium 8.8 mg/dL (8.7-10.4); Carbon Dioxide 21 mmol/L (20-31); Chloride 107 mmol/L (98-107); Potassium 4.4 mmol/L (3.5-5.1); Sodium 139 mmol/L (136-145); Total Protein 6.2 g/dL (5.7-8.2)
[2024-11-11 05:38] LABS: Bilirubin, Total 0.7 mg/dL (0.2-1.0)
[2024-11-11 05:46] LABS: Blood Urea Nitrogen 36 mg/dL (9-23); Glucose 118 mg/dL (74-106)
--- NOTE | 2024-11-11 08:06 | DVHINCON2 ---
Date of service: Nov 11, 2024 Referring Physician hospitalist Reason for Consultation hydronephrosis History of Present Illness History Source: Patient, RN Notes, MD Notes Exam Limitations: No limitations HPI 74 yo male with BPH, kidney stones, gout and renal cysts. Admitted for abdominal pain. Denies urinary complaints. He had stones many years ago treat by Dr. VC Melissa corey. He is seen in ER 3 with at the bedside. We discussed the need for nephrostomy placement until stone can be treated definitively. He has a 1 cm proximal stone on the left with, elevated creatinine and left ureteral jet was not visualized. He denies pain at this time. Home Meds Reported Medications Benazepril Hcl (Benazepril Hcl) 10 Mg Tab, 1 TAB PO DAILY, #30 TAB 5 Refills 02/17/18 Allopurinol (Allopurinol) 300 Mg Tab, 300 MG PO DAILY for 30 Days, MG 02/17/18 Furosemide (Furosemide) 20 Mg Tab, 20 MG PO DAILY for 30 Days, MG 02/17/18 Potassium Chloride (POTASSIUM CHLORIDE CR) 10 Meq Tb, 1 TAB PO DAILY, #30 TAB 5 Refills 02/17/18 Atenolol (Atenolol) 25 Mg Tab, 25 MG PO DAILY for 30 Days, MG 02/17/18 Past Medical History Renal/: Benign prostatic enlarg., CKD, Other (stones) Smoker: No Hx (Negative) Alocohol: None Drugs: None Domestic Violence: Neg Review of Systems Constitutional: No symptom reported Ears, Nose, & Throat: No symptom reported Eyes: No symptom reported Pulmonary/Respiratory: No symptom reported Cardiovascular: No symptom reported Gastrointestinal: No symptom reported Genitourinary: No symptom reported Musculoskeletal: No symptom reported Skin: No symptom reported Psychiatric: No symptom reported Endocrine: No symptom reported Hemotologic/Lymphatic: No symptom reported H&P Exam Vital Signs Vital Signs Date Time Temp Pulse Resp B/P (MAP) Pulse Ox O2 Delivery O2 Flow Rate FiO2 11/11/24 06:00 82 16 90/56 (67) 97 11/11/24 04:12 Room Air* 0 21 11/11/24 04:11 98.5 98.5 General Appeara: Well developed, Well nourished, Normal Appearance Neuro/Mental St: Alert, Oriented Appearance: Appropriate appearance, Appropriate insight Eye contact/ Speech: Cooperative, Good eye contact, Normal speech Skin Exam: Normal inspection, Normal color, Warm/dry Labs/Xrays [address] [address] Ph: [phone] DIAGNOSTIC IMAGING Diagnostic Imaging Report : [id number] Signed PATIENT: JUMANA JENNINGS ACCT: [id number] UNIT: [id number] : 1950 LOC: ER ROOM / BED: / AGE / SEX: 74 / M ADM STATUS: REG ER SERVICE 12 ORDERING PHYSICIAN: BASILIO ANGULO MD PROCEDURE(s): ABPLIV - CT AB PEL WITH IV CON ONLY REASON: abdominal pain ORDER NUMBER(s): [id number], ACCESSION NUMBER(s): [id number] Exam: CT CT AB PEL WITH IV CON ONLY History: abdominal pain COMPARISON: None Technique: Multidetector spiral CT of the abdomen and pelvis was performed from lung bases to pubic symphysis. Intravenous contrast was administered during this examination. Portal venous imaging was obtained. Axial, coronal and sagittal multiplanar reformats were performed by the technologist on a separate workstation. Radiation Dose : 1. Abdomen/Pelvis: CTDIvol mGy, DLP mGy*cm. CONTRAST: Type of contrast: Contrast injected: ml Contrast ingested: ml Findings: Lung Bases: No abnormality demonstrated. Liver: Liver is normal in size. No focal lesions. Normal hepatic vascular enhancement. Gallbladder and Biliary Tree: Calcified gallstone measuring approximately 2 cm is noted in the gallbladder which otherwise appears unremarkable. No evidence of biliary ductal dilatation. Spleen: No abnormality demonstrated. Pancreas: No abnormality demonstrated. Adrenal Glands: No abnormality demonstrated. Kidneys: There is perinephric stranding around the left kidney and mild left- sided hydronephrosis secondary to an obstructing calculus in the left proximal ureter measuring approximately 10 mm. Additional nonobstructing calculi are noted in the upper and lower poles of the left kidney and in the lower pole of the right kidney. Bilateral renal cysts noted. Bladder: Unremarkable Bowel: Stomach appears grossly unremarkable. No dilated or thick-walled loops of large or small bowel noted. Left-sided colonic diverticulosis predominantly in the sigmoid colon without evidence of acute diverticulitis. Appendix is not visualized; however, no secondary findings of acute appendicitis identified. Ascites: Absent Lymphadenopathy: No evidence of lymphadenopathy. Abdominal Wall and Mesentery: Small fat containing umbilical hernia. Vasculature: Mild atherosclerotic changes in abdominal aorta and iliac arteries without aneurysm. Pelvic Organs: Prostatomegaly. Calcifications / calculi noted in the prostate gland / base of urinary bladder. Musculoskeletal: No bony lesions are fracture. IMPRESSION: Perinephric stranding around the left kidney and mild left-sided hydronephrosis secondary to an obstructing calculus in the left proximal ureter measuring approximately 10 mm. Additional nonobstructing calculi in both kidneys. Left-sided colonic diverticulosis predominantly in the sigmoid colon without evidence of acute diverticulitis. Cholelithiasis. Radiation optimization: All CT scans at this facility use at least one of these dose optimization techniques: automated exposure control mA and/or kV adjustment per patient size (includes targeted exams where dose is matched to clinical indication) or iterative reconstruction. ATED BY: DUSTY REGALADO MD DICTATED DATE/TIME: 11/11/24102 SIGNED BY: DUSTY REGALADO MD SIGNED DATE/TIME: 11/11/24102 CC: Labs Test 11/11/24 06:47 11/11/24 05:09 11/11/24 01:57 11/10/24 22:48 Range/Units POC Glucose 112 H 70-106 mg/dl White Blood Count 17.6 #H 4.4-10.8 10^3/uL Red Blood Count 3.79 L 4.5-5.90 10^6/uL Hemoglobin 11.6 L 13.5-17.5 g/dL Hematocrit 35.6 #L 41.0-53.0 % Mean Corpuscular Volume 94.0 80.0-100.0 fL Mean Corpuscular Hemoglobin 30.6 28.0-32.0 pg Mean Corpuscular Hemoglobin Concent 32.5 32.0-36.0 g/dL Red Cell Distribution Width 15.9 H 11.8-14.3 % Platelet Count 75 L 140-450 10^3/uL Mean Platelet Volume 9.8 6.9-10.8 fL Neutrophils (%) (Auto) 92.7 H 37.0-80.0 % Lymphocytes (%) (Auto) 2.0 L 10.0-50.0 % Monocytes (%) (Auto) 5.2 0.0-12.0 % Eosinophils (%) (Auto) 0.1 0.0-7.0 % Basophils (%) (Auto) 0.0 0.0-2.0 % Neutrophils # (Auto) 16.3 H 1.6-8.6 10 ^3/uL Lymphocytes # (Auto) 0.4 0.4-5.4 10 ^3/uL Monocytes # (Auto) 0.9 0-1.3 10 ^3/uL Eosinophils # (Auto) 0 0-0.8 10 ^3/uL Basophils # (Auto) 0 0-0.2 10 ^3/uL Nucleated Red Blood Cells 0.0 % Sodium Level 139 136-145 mmol/L Potassium Level 4.4 3.5-5.1 mmol/L Chloride Level 107 98-107 mmol/L Carbon Dioxide Level 21 20-31 mmol/L Anion Gap 11 5-15 Blood Urea Nitrogen 36 H 9-23 mg/dL Creatinine 2.54 H 0.700-1.30 mg/dL Glomerular Filtration Rate Calc 26 >90 mL/min BUN/Creatinine Ratio 14.2 10.0-20.0 Serum Glucose 118 H 74-106 mg/dL Calcium Level 8.8 8.7-10.4 mg/dL Total Bilirubin 0.7 0.2-1.0 mg/dL Aspartate Amino Transferase (AST) 21 13-40 U/L Alanine Aminotransferase (ALT) 22 7-40 U/L Alkaline Phosphatase 58 46-116 U/L Total Protein 6.2 5.7-8.2 g/dL Albumin 3.5 3.2-4.8 g/dL Troponin I High Sensitivity 102 *H </=54 ng/L Influenza Type A Antigen Negative Negative Influenza Type B Antigen Negative Negative SARS-CoV-2 Antigen (Rapid) Negative NEGATIVE Test 11/10/24 22:31 Range/Units Lipase 28 12-53 U/L Assessment/Plan Problem List: (1) Hydronephrosis, left (2) Renal colic on left side (3) Cyst of kidney, acquired (4) Benign prostatic hyperplasia without lower urinary tract symptoms (5) Calculus in bladder Plan NPO after midnight consult IR for left PCN placement out pt cysto with stent placement and ESWL TBA Plan discussed with: Patient, Other CLAUDIACT MARKS [employer] ADVISOR Nov 11, 2024 08:06
[2024-11-11 08:13] VITALS: PULSE 84
--- NOTE | 2024-11-11 09:14 | DVH ---
US KIDNEY HISTORY: ureteral jets COMPARISON: None TECHNIQUE: Transverse and longitudinal grayscale and color doppler images were obtained of the kidney s and bladder. FINDINGS: Right kidney: Size: 9.7 cm Cortical thickness: Normal Echogenicity: Normal Stones: None Masses: 10.8 x 9.1 x 9.6 cm right kidney cyst. Hydronephrosis: None Ureters: Not well visualized. Other: None Left kidney: Size: 11.6 cm Cortical thickness: Normal Echogenicity: Normal Stones: None Masses: 5.9 x 5.7 x 6.2 cm left kidney cyst. Hydronephrosis: Yes Ureters: Not well visualized. Other: None Bladder: Bladder stones seen. Other: Gallstone seen in gallbladder. IMPRESSION: Left hydronephrosis. Right ureteral jet seen, left not seen. 5.9 x 5.7 x 6.2 cm left kidney cyst. 10.8 x 9.1 x 9.6 cm right kidney cyst.
[2024-11-11 09:32] LABS: Lactic Acid w/Reflex 2.7 mmol/L (0.4-2.0)
--- NOTE | 2024-11-11 09:51 | DVH ---
Exam: XY KUB ABDOMEN SINGLE VIEW Indication: stones 74-year-old male with left ureteropelvic junction calculus, follow-up. Comparison: CT scan of the abdomen and pelvis dated 11/11/2024 Technique: Supine AP views of the abdomen were performed. Findings: No abnormal bowel dilatation. Gas is present throughout the colon. Left ureteropelvic junction calcul us is re-identified at the L3-L4 level, with retention previously administered iodinated contrast in the left renal collecting system. There is iodinated contrast in the urinary bladder lumen. Impression: 1. No evidence of bowel obstruction. 2. Stable position 10 mm left ureteropelvic junction calculus, with associated retention iodinated co ntrast in the left renal collecting system.
[2024-11-11] MEDS: MEROPENEM 500MG IVPB 50 ML IV ONE (10:33)
[2024-11-11] MEDS: ALLOPURINOL 100 MG TAB PO SCH (10:33)
[2024-11-11] MEDS: SODIUM CHLORIDE 0.9% 1,000 ML IV ONE (13:10)
--- NOTE | 2024-11-11 13:33 | DVHPN2 ---
Reviewed: Care Plan, H&P, Labs, Medications, Previous Orders, Radiology Changes from previous H/P or p: No Changes Eyes: No Pain, No Vision change, No Conjunctivae inflammation, No Eyelid inflammation, No Other, No Redness ENT: No Ear pain, No Ear discharge, No Nose pain, No Nose discharge, No Nose congestion, No Mouth pain, No Mouth swelling, No Throat pain, No Throat swelling, No Other Cardiovascular: No Chest Pain, No Palpitations, No Orthopnea, No Paroxysmal Noc. Dyspnea, No Edema, No Lt Headedness, No Other Respiratory: No Cough, No Dry, No Shortness of breath, No SOB with excertion, No Wheezing, No Hemoptysis, No Pleuritic Pain, No Sputum, No Other Gastrointestinal: No Nausea, No Vomiting, No Abdominal Pain, No Diarrhea, No Constipation, No Melena, No Hematochezia, No Other Genitourinary: No Dysuria, No Frequency, No Incontinence, No Hematuria, No Retention, No Other Musculoskeletal: No other, No neck pain, No shoulder pain, No arm pain, No back pain, No hand pain, No leg pain, No foot pain Skin: No Rash, No Lesions, No Jaundice, No Bruising, No Other Objective Vitals Vital Signs Date Time Temp Pulse Resp B/P (MAP) Pulse Ox O2 Delivery O2 Flow Rate FiO2 11/11/24 13:17 101 11/11/24 12:00 28 92/46 (61) 93 11/11/24 08:13 Nasal Cannula* 1 24 11/11/24 08:00 98.2 98.2 Intake/Output Intake and Output 11/11/24 07:00 Intake Total 3480 ml Balance 3480 ml Intake IV Total 3480 ml Medications Current Medications Medications Dose Ordered Sig/Akhil Route Start Time Stop Time Status Last Admin Dose Admin Tamsulosin HCl 0.4 mg QPM PO 11/11/24 18:00 Allopurinol 300 mg DAILY PO 11/11/24 10:00 11/11/24 10:33 300 MG Aspirin 81 mg DAILY PO 11/12/24 10:00 Hydralazine HCl 10 mg Q6HP PRN IV 11/11/24 04:15 Acetaminophen/ Hydrocodone Bitart 1 tab Q4HP PRN PO 11/11/24 04:15 Ondansetron HCl 4 mg Q4HP PRN IV 11/11/24 04:15 Docusate Sodium 100 mg BIDPRN PRN PO 11/11/24 04:15 Acetaminophen 650 mg Q6HP PRN PO 11/11/24 04:15 Nitroglycerin 0.4 mg Q5MINP PRN SL 11/11/24 04:15 Morphine Sulfate 2 mg Q30M PRN IV 11/11/24 04:15 Sodium Chloride 1,000 ml @ 125 mls/hr Q8H IV 11/11/24 07:00 11/11/24 09:40 125 MLS/HR Meropenem 50 ml @ 17 mls/hr Q12HR IV 11/11/24 22:00 Laboratory Results Laboratory Tests 11/11/24 05:09 Chemistry Test 11/10/24 22:31 11/11/24 05:09 Albumin 4.1 g/dL (3.2-4.8) 3.5 g/dL (3.2-4.8) Calcium Level 9.8 mg/dL (8.7-10.4) 8.8 mg/dL (8.7-10.4) Total Protein 7.1 g/dL (5.7-8.2) 6.2 g/dL (5.7-8.2) Lipid panel Test 11/10/24 22:31 Lipase 28 U/L (12-53) LFT Test 11/10/24 22:31 11/11/24 05:09 Alanine Aminotransferase (ALT) 25 U/L (7-40) 22 U/L (7-40) Alkaline Phosphatase 102 U/L (46-116) 58 U/L (46-116) Aspartate Amino Transferase (AST) 24 U/L (13-40) 21 U/L (13-40) Total Bilirubin 1.3 mg/dL (0.2-1.0) H 0.7 mg/dL (0.2-1.0) Labs and/or images reviewed: Labs reviewed by me, Image(s) reviewed by me Assessment/Plan Assessment/Plan Septic shock with altered mental status elevated white count secondary to acute urinary tract infection: Blood cultures urine cultures Acute urinary tract infection: Urinalysis urine cultures Rocephin Acute hypotension: IV fluids Bilateral community-acquired pneumonia: Rocephin azithromycin 10 mm left ureteral stone with left hydronephrosis: Urology consult by Dr. Meyer appreciated Bilateral Kidney stones BPH: Flomax Bladder calculi Acute lactic acidosis Gallstones Diverticulosis Acute left renal colic Gout: Allopurinol KOURTNEY with BUN creatinine 36 and 2.5: Consult for Dr. Jorge torres Flora test negative Flu test negative Time spent 70 minutes Advanced care planning time 20 minutes Patient is full code Plan discussed with: Patient My Orders Orders - MAREN MENENDEZ MD Procedure Category Date Status Time Sodium Chloride 0.9% PHA 11/11/24 In Process 13:00 * Cardiology Consult CONS 11/11/24 Transmitted 12:50 Date of Service: Nov 11, 2024 Billing Provider: MAREN MENENDEZ MD Common Visit Codes: [id number] CARE 30-74 MIN MAREN MENENDEZ MD Nov 11, 2024 13:33
--- NOTE | 2024-11-11 13:52 | DVHSR ---
APPROVED REPORT EXAM: LIMITED Two-dimensional and M-mode echocardiogram with Doppler and color Doppler. Blood Pressure: 126/67 mmHg INDICATION Nstemi RISK FACTORS Height: 5' 6", Weight: 220 DIMENSIONS LVDd5.0 (3.8-5.7cm)LA (2D)3.5 (1.9-4.0cm)Aortic Root4.1 (2.0-3.7cm) LVDs3.5 (2.5-4.0cm)LA (MM) (1.9-4.0cm)Aortic Cusp Exc1.8 (1.5-2.0cm) EF (%) 56.0 (55-70%)Rt. Atrium3.9 (1.9-4.0cm)Asc. Aorta cm IVSd1.1 (0.7-1.1cm)RV (D) (1.8-2.4cm) PWd1.0 (0.7-1.1cm) Mitral Valve MitralMitral Stenosis E wave1.00m/sMV Mean GR.mmHg A wave1.10m/sMV Peak GR.mmHg E/A ratio0.92D MVAcm2 Aortic Valve Aortic ValveAortic Stenosis V11.10m/May Mean GR.7mmHg V21.70m/May Peak GR.13mmHg LVOT Diameter2.4 (1.8-2.4cm)Doppler AVA2.93cm2 Pulmonic Valve V20.80m/s Tricuspid Valve TR Velocity2.10m/s [id number] Other Information Quality : Technically LimitedRhythm : Technically limited study due to body habitus. Conclusion Sinus rhythm. Difficult acoustic windows. Aortic root enlargement. Valves are normal. Mild dilatation of the sinuses of Valsalva. EF of 65% with normal RV function. Dopplers unremarkable. No pericardial effusion masses or vegetations.
--- NOTE | 2024-11-11 15:27 | DVHINCON2 ---
Date of service: Nov 11, 2024 Reason for Consultation Acute kidney injury History of Present Illness 74-year-old white male with past medical history of hypertension, gout, kidney stones presents to the hospital complaining of vague abdominal pain over the past two days. Nephrology is consulted due to abnormal renal function. Patient reports several years ago he had a kidney stone which required lithotripsy and has not passed a gallstone since. He takes allopurinol for his gout and reports he has not had any recent gout flares. His last presentation to this hospital was in 2017 and labs showed a GFR in the proximate 30s but is unclear if that was his baseline Patient takes Lasix, potassium, allopurinol, and benazepril at home US kidney Left hydronephrosis. Right ureteral jet seen, left not seen. 5.9 x 5.7 x 6.2 cm left kidney cyst. 10.8 x 9.1 x 9.6 cm right kidney cyst. Allergies: Coded Allergies: Levofloxacin (Verified Allergy, Unknown, 02/17/18) Home Meds Reported Medications Benazepril Hcl (Benazepril Hcl) 10 Mg Tab, 1 TAB PO DAILY, #30 TAB 5 Refills 02/17/18 Allopurinol (Allopurinol) 300 Mg Tab, 300 MG PO DAILY for 30 Days, MG 02/17/18 Furosemide (Furosemide) 20 Mg Tab, 20 MG PO DAILY for 30 Days, MG 02/17/18 Potassium Chloride (POTASSIUM CHLORIDE CR) 10 Meq Tb, 1 TAB PO DAILY, #30 TAB 5 Refills 02/17/18 Atenolol (Atenolol) 25 Mg Tab, 25 MG PO DAILY for 30 Days, MG 02/17/18 Current Medications Current Medications Medications (Trade) Dose Ordered Sig/Akhil Route PRN Reason Start Time Stop Time Status Last Admin Tamsulosin HCl (Flomax) 0.4 mg QPM PO 11/11/24 18:00 Allopurinol (Zyloprim Tablet) 300 mg DAILY PO 11/11/24 10:00 11/11/24 10:33 Aspirin 81 mg DAILY PO 11/12/24 10:00 Hydralazine HCl (Apresoline Injection) 10 mg Q6HP PRN IV SBP>150 11/11/24 04:15 Sodium Chloride 1,000 ml @ 60 mls/hr [id number] IV 11/11/24 04:15 11/11/24 07:04 DC 11/11/24 04:45 Acetaminophen/ Hydrocodone Bitart ([place] 5/325MG Tab) 1 tab Q4HP PRN PO MODERATE PAIN (4-6 PAIN SCALE) 11/11/24 04:15 Ondansetron HCl (Zofran) 4 mg Q4HP PRN IV NAUSEA / VOMITING 11/11/24 04:15 Docusate Sodium (Colace Capsule) 100 mg BIDPRN PRN PO FOR CONSTIPATION 11/11/24 04:15 Acetaminophen (Tylenol Tablet) 650 mg Q6HP PRN PO PAIN SCALE 1-3 OR TEMP>100.4 11/11/24 04:15 Nitroglycerin (Ntrostat Sublingual) 0.4 mg Q5MINP PRN SL FOR CHEST PAIN 11/11/24 04:15 Morphine Sulfate 2 mg Q30M PRN IV FOR CHEST PAIN 11/11/24 04:15 Ceftriaxone Sodium 50 ml @ 100 mls/hr DAILY@09 IV 11/12/24 09:00 11/11/24 07:04 DC Azithromycin 250 ml @ 125 mls/hr DAILY IV 11/12/24 10:00 11/11/24 07:04 DC Sodium Chloride 1,000 ml @ 125 mls/hr Q8H IV 11/11/24 07:00 11/11/24 15:17 DC 11/11/24 09:40 Meropenem 50 ml @ 17 mls/hr Q12HR IV 11/11/24 22:00 Sodium Chloride 1,000 ml @ 150 mls/hr Q6H40M IV 11/11/24 15:30 UNV Review of Systems Abdominal pain H&P Exam Vital Signs/I&O Vital Sign Date Time Temp Pulse Resp B/P (MAP) Pulse Ox O2 Delivery O2 Flow Rate FiO2 11/11/24 13:17 101 11/11/24 12:00 28 92/46 (61) 93 11/11/24 08:13 Nasal Cannula* 1 24 11/11/24 08:00 98.2 98.2 Intake and Output 11/10/24 11/11/24 19:00 07:00 Intake Total 3480 ml Balance 3480 ml Intake IV Total 3480 ml Physical Exam Elderly white male Not in overt distress Abdomen is soft Morbidly obese No pitting edema Regular rate and rhythm Labs/Diagnostic Data Labs/Diagnostic Data Laboratory Tests Test 11/11/24 10:20 11/11/24 08:20 11/11/24 06:47 11/11/24 05:09 Range/Units Lactic Acid Level 2.3 *H 2.7 *H 0.4-2.0 mmol/L POC Glucose 112 H 70-106 mg/dl White Blood Count 17.6 #H 4.4-10.8 10^3/uL Red Blood Count 3.79 L 4.5-5.90 10^6/uL Hemoglobin 11.6 L 13.5-17.5 g/dL Hematocrit 35.6 #L 41.0-53.0 % Mean Corpuscular Volume 94.0 80.0-100.0 fL Mean Corpuscular Hemoglobin 30.6 28.0-32.0 pg Mean Corpuscular Hemoglobin Concent 32.5 32.0-36.0 g/dL Red Cell Distribution Width 15.9 H 11.8-14.3 % Platelet Count 75 L 140-450 10^3/uL Mean Platelet Volume 9.8 6.9-10.8 fL Neutrophils (%) (Auto) 92.7 H 37.0-80.0 % Lymphocytes (%) (Auto) 2.0 L 10.0-50.0 % Monocytes (%) (Auto) 5.2 0.0-12.0 % Eosinophils (%) (Auto) 0.1 0.0-7.0 % Basophils (%) (Auto) 0.0 0.0-2.0 % Neutrophils # (Auto) 16.3 H 1.6-8.6 10 ^3/uL Lymphocytes # (Auto) 0.4 0.4-5.4 10 ^3/uL Monocytes # (Auto) 0.9 0-1.3 10 ^3/uL Eosinophils # (Auto) 0 0-0.8 10 ^3/uL Basophils # (Auto) 0 0-0.2 10 ^3/uL Nucleated Red Blood Cells 0.0 % Sodium Level 139 136-145 mmol/L Potassium Level 4.4 3.5-5.1 mmol/L Chloride Level 107 98-107 mmol/L Carbon Dioxide Level 21 20-31 mmol/L Anion Gap 11 5-15 Blood Urea Nitrogen 36 H 9-23 mg/dL Creatinine 2.54 H 0.700-1.30 mg/dL Glomerular Filtration Rate Calc 26 >90 mL/min BUN/Creatinine Ratio 14.2 10.0-20.0 Serum Glucose 118 H 74-106 mg/dL Calcium Level 8.8 8.7-10.4 mg/dL Total Bilirubin 0.7 0.2-1.0 mg/dL Aspartate Amino Transferase (AST) 21 13-40 U/L Alanine Aminotransferase (ALT) 22 7-40 U/L Alkaline Phosphatase 58 46-116 U/L Total Protein 6.2 5.7-8.2 g/dL Albumin 3.5 3.2-4.8 g/dL Test 11/11/24 01:57 11/10/24 23:30 11/10/24 22:48 11/10/24 22:31 Range/Units Troponin I High Sensitivity 102 *H 94 *H 89 *H </=54 ng/L Influenza Type A Antigen Negative Negative Influenza Type B Antigen Negative Negative SARS-CoV-2 Antigen (Rapid) Negative NEGATIVE White Blood Count 6.3 4.4-10.8 10^3/uL Red Blood Count 4.32 L 4.5-5.90 10^6/uL Hemoglobin 13.2 L 13.5-17.5 g/dL Hematocrit 40.5 L 41.0-53.0 % Mean Corpuscular Volume 93.8 80.0-100.0 fL Mean Corpuscular Hemoglobin 30.6 28.0-32.0 pg Mean Corpuscular Hemoglobin Concent 32.6 32.0-36.0 g/dL Red Cell Distribution Width 15.6 H 11.8-14.3 % Platelet Count 100 L 140-450 10^3/uL Mean Platelet Volume 10.2 6.9-10.8 fL Neutrophils (%) (Auto) 92.8 H 37.0-80.0 % Lymphocytes (%) (Auto) 4.5 L 10.0-50.0 % Monocytes (%) (Auto) 0.8 0.0-12.0 % Eosinophils (%) (Auto) 0.6 0.0-7.0 % Basophils (%) (Auto) 1.3 0.0-2.0 % Neutrophils # (Auto) 5.8 1.6-8.6 10 ^3/uL Lymphocytes # (Auto) 0.3 L 0.4-5.4 10 ^3/uL Monocytes # (Auto) 0.1 0-1.3 10 ^3/uL Eosinophils # (Auto) 0 0-0.8 10 ^3/uL Basophils # (Auto) 0.1 0-0.2 10 ^3/uL Nucleated Red Blood Cells 0.1 % Sodium Level 139 136-145 mmol/L Potassium Level 4.2 3.5-5.1 mmol/L Chloride Level 105 98-107 mmol/L Carbon Dioxide Level 19 L 20-31 mmol/L Anion Gap 15 5-15 Blood Urea Nitrogen 31 H 9-23 mg/dL Creatinine 2.16 H 0.700-1.30 mg/dL Glomerular Filtration Rate Calc 32 >90 mL/min BUN/Creatinine Ratio 14.4 10.0-20.0 Serum Glucose 106 74-106 mg/dL Calcium Level 9.8 8.7-10.4 mg/dL Total Bilirubin 1.3 H 0.2-1.0 mg/dL Aspartate Amino Transferase (AST) 24 13-40 U/L Alanine Aminotransferase (ALT) 25 7-40 U/L Alkaline Phosphatase 102 46-116 U/L Total Protein 7.1 5.7-8.2 g/dL Albumin 4.1 3.2-4.8 g/dL Lipase 28 12-53 U/L Assessment Acute kidney injury on chronic kidney disease 10 mm left obstructing kidney stone Elevated lactate History of hypertension currently hypotensive likely home medication effect Increase IV fluids Monitoring urinary output Avoid hypotension Obtain Radiology for nephrostomy tube was in the left kidney Urology Renal dose medications Obtain uric acid level given history of gout and resume allopurinol IV antibiotics Obtain a urinalysis Hold diuretics at this time, hold benazepril at this time I explained to patient that he will require outpatient renal follow-up due to suspected chronic kidney disease and stone prevention management. Plan discussed with: Patient SHEN SIFUENTES MD Nov 11, 2024 15:27
[2024-11-11 18:15] LABS: INR 1.19 (0.9-1.15); Prothrombin Time 12.4 sec (9.3-11.8)
[2024-11-11] MEDS: TAMSULOSIN HYDROCHLORIDE 0.4 MG CAP PO SCH (18:17)
[2024-11-11 19:44] VITALS: PULSE 96; O2SAT 94
[2024-11-11] MEDS: CALCIUM CARB 500 MG CHEW TAB PO PRN (20:10)
[2024-11-11 21:16] VITALS: BP 107/65; PULSE 88; RESP 20; TEMP 98.1; O2SAT 95
[2024-11-11] MEDS: MELATONIN 5 MG TAB PO ONE (22:17)
[2024-11-11] MEDS: MEROPENEM 500MG IVPB 50 ML IV SCH (22:23)
[2024-11-12] VITALS (8 sets, daily range): BP systolic 98–137; BP diastolic 62–81; PULSE 78–105; RESP 16–22; TEMP 97.7–99.1; O2SAT 92–97
[2024-11-12 03:03] LABS: Urine Bacteria FEW /hpf (None Seen); Urine Blood 3+ /uL (Negative); Urine Budding Yeast MODERATE /hpf (None Seen); Urine Clarity Ex.Turbid (Clear); Urine Color Light-Orange (Yellow); Urine Protein, UAD 2+ (Negative); Urine Specific Gravity 1.025 (1.001-1.035); Urine Squamous Epithelial Cell None Seen /hpf (<5); Urine Urobilinogen Normal (Negative); Urine WBC 1181 /HPF (0-3); Urine WBC Clumps PRESENT /hpf (None Seen)
[2024-11-12 07:59] LABS: Hemoglobin 11.4 g/dL (13.5-17.5); White Blood Cell 11.2 10^3/uL (4.4-10.8)
[2024-11-12 08:02] LABS: Alanine Aminotransferase 20 U/L (7-40); Albumin 3.5 g/dL (3.2-4.8); Alkaline Phosphatase 74 U/L (46-116); Anion Gap 13 (5-15); BUN/Creatinine Ratio 14.6 (10.0-20.0); Calcium 8.8 mg/dL (8.7-10.4); INR 1.13 (0.9-1.15); Partial Thromboplastin Time 30.6 SEC (24.5-34.5); Potassium 3.9 mmol/L (3.5-5.1); Prothrombin Time 11.8 sec (9.3-11.8); Sodium 139 mmol/L (136-145); Total Protein 6.1 g/dL (5.7-8.2)
[2024-11-12 08:03] LABS: Aspartate Aminotransferase 30 U/L (13-40); Hematocrit 34.7 % (41.0-53.0); Mean Corpuscular Hemoglobin 30.4 pg (28.0-32.0); Mean Corpuscular Hgb Conc. 32.8 g/dL (32.0-36.0); Mean Corpuscular Volume 92.9 fL (80.0-100.0); Platelet Count (auto) 59 10^3/uL (140-450); Red Blood Cells 3.74 10^6/uL (4.5-5.90); Red Cell Distribution Width 15.4 % (11.8-14.3)
[2024-11-12 08:04] LABS: Bilirubin, Total 0.7 mg/dL (0.2-1.0); Blood Urea Nitrogen 41 mg/dL (9-23); Carbon Dioxide 18 mmol/L (20-31); Chloride 108 mmol/L (98-107); Glucose 108 mg/dL (74-106)
[2024-11-12 08:07] LABS: Basophils % (manual) 0 (0.0-2.0); Blast Cells 0; Eosinophils % (manual) 0 (0-7); Metamyelocytes % 0; Myelocytes % 0; Promyelocytes % 0; Reactive Lymphocytes 0
--- NOTE | 2024-11-12 08:13 | DVHINCON2 ---
Family History: Patient reports no known family medical history. Allergies: Coded Allergies: Levofloxacin (Verified Allergy, Unknown, 02/17/18) Home Meds Reported Medications Benazepril Hcl (Benazepril Hcl) 10 Mg Tab, 1 TAB PO DAILY, #30 TAB 5 Refills 02/17/18 Allopurinol (Allopurinol) 300 Mg Tab, 300 MG PO DAILY for 30 Days, MG 02/17/18 Furosemide (Furosemide) 20 Mg Tab, 20 MG PO DAILY for 30 Days, MG 02/17/18 Potassium Chloride (POTASSIUM CHLORIDE CR) 10 Meq Tb, 1 TAB PO DAILY, #30 TAB 5 Refills 02/17/18 Atenolol (Atenolol) 25 Mg Tab, 25 MG PO DAILY for 30 Days, MG 02/17/18 Current Medications Current Medications Medications (Trade) Dose Ordered Sig/Akhil Route PRN Reason Start Time Stop Time Status Last Admin Tamsulosin HCl (Flomax) 0.4 mg QPM PO 11/11/24 18:00 11/11/24 18:17 Allopurinol (Zyloprim Tablet) 300 mg DAILY PO 11/11/24 10:00 11/11/24 15:58 DC 11/11/24 10:33 Aspirin 81 mg DAILY PO 11/12/24 10:00 Ceftriaxone Sodium 50 ml @ 100 mls/hr DAILY@09 IV 11/12/24 09:00 11/11/24 07:04 DC Azithromycin 250 ml @ 125 mls/hr DAILY IV 11/12/24 10:00 11/11/24 07:04 DC Meropenem 50 ml @ 17 mls/hr Q12HR IV 11/11/24 22:00 11/11/24 22:23 Sodium Chloride 1,000 ml @ 150 mls/hr Q6H40M IV 11/11/24 15:30 11/12/24 04:50 Allopurinol (Zyloprim Tablet) 100 mg DAILY PO 11/12/24 10:00 Calcium Carbonate (Tums) 500 mg Q8HPRN PRN PO FOR STOMACH DISTRESS 11/11/24 20:00 11/11/24 20:10 Vital Signs Vital Signs Date Time Temp Pulse Resp B/P (MAP) Pulse Ox O2 Delivery O2 Flow Rate FiO2 11/12/24 05:00 98.2 93 18 107/70 (82) 97 98.2 11/11/24 21:17 Nasal Cannula* 2 28 Labs/Diagnostic Data Labs Test 11/12/24 06:29 11/12/24 01:40 11/11/24 10:20 11/11/24 06:47 Range/Units White Blood Count 11.2 #H 4.4-10.8 10^3/uL Red Blood Count 3.74 L 4.5-5.90 10^6/uL Hemoglobin 11.4 L 13.5-17.5 g/dL Hematocrit 34.7 L 41.0-53.0 % Mean Corpuscular Volume 92.9 80.0-100.0 fL Mean Corpuscular Hemoglobin 30.4 28.0-32.0 pg Mean Corpuscular Hemoglobin Concent 32.8 32.0-36.0 g/dL Red Cell Distribution Width 15.4 H 11.8-14.3 % Platelet Count 59 L 140-450 10^3/uL Mean Platelet Volume 10.6 6.9-10.8 fL Neutrophils (%) (Auto) 37.0-80.0 % Lymphocytes (%) (Auto) 10.0-50.0 % Monocytes (%) (Auto) 0.0-12.0 % Basophils (%) (Auto) 0.0-2.0 % Neutrophils # (Auto) 1.6-8.6 10 ^3/uL Lymphocytes # (Auto) 0.4-5.4 10 ^3/uL Monocytes # (Auto) 0-1.3 10 ^3/uL Prothrombin Time 11.8 9.3-11.8 sec Prothrombin Time INR 1.13 0.9-1.15 Activated Partial Thromboplast Time 30.6 24.5-34.5 SEC Sodium Level 139 136-145 mmol/L Potassium Level 3.9 3.5-5.1 mmol/L Chloride Level 108 H 98-107 mmol/L Carbon Dioxide Level 18 L 20-31 mmol/L Anion Gap 13 5-15 Blood Urea Nitrogen 41 H 9-23 mg/dL Creatinine 2.80 H 0.700-1.30 mg/dL Glomerular Filtration Rate Calc 23 >90 mL/min BUN/Creatinine Ratio 14.6 10.0-20.0 Serum Glucose 108 H 74-106 mg/dL Calcium Level 8.8 8.7-10.4 mg/dL Aspartate Amino Transferase (AST) 30 13-40 U/L Alanine Aminotransferase (ALT) 20 7-40 U/L Alkaline Phosphatase 74 46-116 U/L Total Protein 6.1 5.7-8.2 g/dL Albumin 3.5 3.2-4.8 g/dL Urine Color Light-orange Yellow Urine Clarity Ex.turbid Clear Urine pH 6.0 5.0-9.0 Urine Specific [place] 1.025 1.001-1.035 Urine Protein 2+ H Negative Urine Ketones Negative Negative Urine Blood 3+ H Negative /uL Urine Nitrite Negative Negative Urine Bilirubin Negative Negative Urine Urobilinogen Normal Negative mg/dL Urine Leukocyte Esterase 3+ Negative /uL Urine RBC 118 0 - 3 /hpf Urine WBC Clumps Present None Seen /hpf Urine Microscopic WBC 1181 H 0-3 /HPF Urine Squamous Epithelial Cells None seen <5 /hpf Urine Bacteria Few H None Seen /hpf Urine Yeast (Budding) Moderate None Seen /hpf Urine Creatinine 102.14 30.0-125.0 mg/dL Urine Glucose Normal Normal mg/dL Lactic Acid Level 2.3 *H 0.4-2.0 mmol/L POC Glucose 112 H 70-106 mg/dl Test 11/11/24 05:09 11/11/24 01:57 11/10/24 22:48 11/10/24 22:31 Range/Units Eosinophils (%) (Auto) 0.1 0.0-7.0 % Eosinophils # (Auto) 0 0-0.8 10 ^3/uL Basophils # (Auto) 0 0-0.2 10 ^3/uL Nucleated Red Blood Cells 0.0 % Uric Acid 6.4 3.7-9.2 mg/dL Troponin I High Sensitivity 102 *H </=54 ng/L Influenza Type A Antigen Negative Negative Influenza Type B Antigen Negative Negative SARS-CoV-2 Antigen (Rapid) Negative NEGATIVE Lipase 28 12-53 U/L Microbiology Date/Time Source Procedure Growth Status 11/11/24 08:35 Blood Blood Culture - Preliminary Resulted LEV GALVAN MD Nov 12, 2024 08:13
[2024-11-12] MEDS ORDERED: cefTRIAXone 1GM/50ML D5W 50 ML IV SCH (09:00)
--- NOTE | 2024-11-12 09:39 | DVHPN2 ---
Reviewed: Care Plan, H&P, Labs, Medications, Previous Orders, Radiology Changes from previous H/P or p: No Changes Eyes: No Pain, No Vision change, No Conjunctivae inflammation, No Eyelid inflammation, No Other, No Redness ENT: No Ear pain, No Ear discharge, No Nose pain, No Nose discharge, No Nose congestion, No Mouth pain, No Mouth swelling, No Throat pain, No Throat swelling, No Other Cardiovascular: No Chest Pain, No Palpitations, No Orthopnea, No Paroxysmal Noc. Dyspnea, No Edema, No Lt Headedness, No Other Respiratory: No Cough, No Dry, No Shortness of breath, No SOB with excertion, No Wheezing, No Hemoptysis, No Pleuritic Pain, No Sputum, No Other Gastrointestinal: No Nausea, No Vomiting, No Abdominal Pain, No Diarrhea, No Constipation, No Melena, No Hematochezia, No Other Genitourinary: No Dysuria, No Frequency, No Incontinence, No Hematuria, No Retention, No Other Musculoskeletal: No other, No neck pain, No shoulder pain, No arm pain, No back pain, No hand pain, No leg pain, No foot pain Skin: No Rash, No Lesions, No Jaundice, No Bruising, No Other Objective Vitals Vital Signs Date Time Temp Pulse Resp B/P (MAP) Pulse Ox O2 Delivery O2 Flow Rate FiO2 11/12/24 05:00 98.2 93 18 107/70 (82) 97 98.2 11/11/24 21:17 Nasal Cannula* 2 28 Intake/Output Intake and Output 11/12/24 07:00 Intake Total 2000 ml Balance 2000 ml Intake IV Total 2000 ml # Voids 2 # Bowel Movements 2 Medications Current Medications Medications Dose Ordered Sig/Akhil Route Start Time Stop Time Status Last Admin Dose Admin Tamsulosin HCl 0.4 mg QPM PO 11/11/24 18:00 11/11/24 18:17 0.4 MG Aspirin 81 mg DAILY PO 11/12/24 10:00 Hydralazine HCl 10 mg Q6HP PRN IV 11/11/24 04:15 Acetaminophen/ Hydrocodone Bitart 1 tab Q4HP PRN PO 11/11/24 04:15 Ondansetron HCl 4 mg Q4HP PRN IV 11/11/24 04:15 Docusate Sodium 100 mg BIDPRN PRN PO 11/11/24 04:15 Acetaminophen 650 mg Q6HP PRN PO 11/11/24 04:15 Nitroglycerin 0.4 mg Q5MINP PRN SL 11/11/24 04:15 Morphine Sulfate 2 mg Q30M PRN IV 11/11/24 04:15 Meropenem 50 ml @ 17 mls/hr Q12HR IV 11/11/24 22:00 11/11/24 22:23 17 MLS/HR Sodium Chloride 1,000 ml @ 150 mls/hr Q6H40M IV 11/11/24 15:30 11/12/24 04:50 150 MLS/HR Allopurinol 100 mg DAILY PO 11/12/24 10:00 Calcium Carbonate 500 mg Q8HPRN PRN PO 11/11/24 20:00 11/11/24 20:10 500 MG Laboratory Results Laboratory Tests 11/12/24 06:29 Chemistry Test 11/12/24 06:29 Albumin 3.5 g/dL (3.2-4.8) Calcium Level 8.8 mg/dL (8.7-10.4) Total Protein 6.1 g/dL (5.7-8.2) Coagulation Test 11/11/24 13:45 11/12/24 06:29 Prothrombin Time 12.4 sec (9.3-11.8) H 11.8 sec (9.3-11.8) Prothrombin Time INR 1.19 (0.9-1.15) H 1.13 (0.9-1.15) Activated Partial Thromboplast Time 30.6 SEC (24.5-34.5) LFT Test 11/12/24 06:29 Alanine Aminotransferase (ALT) 20 U/L (7-40) Alkaline Phosphatase 74 U/L (46-116) Aspartate Amino Transferase (AST) 30 U/L (13-40) Total Bilirubin 0.7 mg/dL (0.2-1.0) Urinalysis Test 11/12/24 01:40 Urine Color Light-orange (Yellow) Urine Clarity Ex.turbid (Clear) Urine pH 6.0 (5.0-9.0) Urine Specific [place] 1.025 (1.001-1.035) Urine Protein 2+ (Negative) H Urine Ketones Negative (Negative) Urine Blood 3+ /uL (Negative) H Urine Nitrite Negative (Negative) Urine Bilirubin Negative (Negative) Urine Urobilinogen Normal mg/dL (Negative) Urine Leukocyte Esterase 3+ /uL (Negative) Urine RBC 118 /hpf (0 - 3) Urine WBC Clumps Present /hpf (None Seen) Urine Microscopic WBC 1181 /HPF (0-3) H Urine Squamous Epithelial Cells None seen /hpf (<5) Urine Bacteria Few /hpf (None Seen) H Urine Yeast (Budding) Moderate /hpf (None Seen) Urine Creatinine 102.14 mg/dL (30.0-125.0) Urine Glucose Normal mg/dL (Normal) Microbiology Microbiology Date/Time Source Procedure Growth Status 11/11/24 08:35 Blood Blood Culture - Preliminary Resulted Labs and/or images reviewed: Labs reviewed by me, Image(s) reviewed by me Assessment/Plan Assessment/Plan Septic shock with altered mental status elevated white count secondary to acute urinary tract infection: Bacteremia with Gram-negative rods: Continue Meropenem Acute urinary tract infection: Urinalysis urine cultures Meropenem Acute hypotension: IV fluids Bilateral community-acquired pneumonia: Rocephin azithromycin 10 mm left ureteral stone with left hydronephrosis: Urology consult by Dr. Meyer appreciated, Radiology consult for left nephrostomy tube placement Bilateral Kidney stones BPH: Flomax Bladder calculi Acute lactic acidosis Gallstones Diverticulosis Acute left renal colic Gout: Allopurinol KOURTNEY with BUN creatinine 36 and 2.5: Consult by Dr Rodriguez appreciated Flora test negative Flu test negative Time spent 50 minutes Advanced care planning time 20 minutes Patient is full code Plan discussed with: Patient My Orders Orders - MAREN MENENDEZ MD Procedure Category Date Status Time Blood Culture AIDAN 11/11/24 In Process 13:34 * Cardiology Consult CONS 11/11/24 Transmitted 14:08 Date of Service: Nov 12, 2024 Billing Provider: MAREN MENENDEZ MD Common Visit Codes: [id number] INP/OBS CARE(HIGH) MAREN MENENDEZ MD Nov 12, 2024 09:39
[2024-11-12] MEDS: ALLOPURINOL 100 MG TAB PO SCH (10:00)
[2024-11-12] MEDS ORDERED: AZITHROMYCIN 500MG/ 250ML 250 ML IV SCH (10:00)
[2024-11-12] MEDS: ASPirin 81 mg TAB PO SCH (10:00)
[2024-11-12 11:01] LABS: Band Neutrophils % (manual) 6; Lymphocytes % (manual) 3 (10.0-50.0); Monocytes % (manual) 3 (0-12); Platelet Estimate Decreased
--- NOTE | 2024-11-12 12:40 | DVHPN2 ---
Progress Note - Dictate Date Seen: Nov 12, 2024 Medical Necessity Reason Pt with a Central, PICC or Fol: No Subjective sleeping vital signs Vital Sign Date Time Temp Pulse Resp B/P (MAP) Pulse Ox O2 Delivery O2 Flow Rate FiO2 11/12/24 09:00 98.3 101 20 137/81 (99) 96 98.3 11/12/24 08:00 Nasal Cannula* 2 28 Total Intake and Output 11/11/24 11/11/24 11/12/24 15:00 23:00 07:00 Intake Total 1675 ml 275 ml 50 ml Balance 1675 ml 275 ml 50 ml medications Current Medications Medications Dose Ordered Sig/Akhil Route Start Time Stop Time Status Last Admin Dose Admin Tamsulosin HCl 0.4 mg QPM PO 11/11/24 18:00 11/11/24 18:17 0.4 MG Aspirin 81 mg DAILY PO 11/12/24 10:00 Hydralazine HCl 10 mg Q6HP PRN IV 11/11/24 04:15 Acetaminophen/ Hydrocodone Bitart 1 tab Q4HP PRN PO 11/11/24 04:15 Ondansetron HCl 4 mg Q4HP PRN IV 11/11/24 04:15 Docusate Sodium 100 mg BIDPRN PRN PO 11/11/24 04:15 Acetaminophen 650 mg Q6HP PRN PO 11/11/24 04:15 Nitroglycerin 0.4 mg Q5MINP PRN SL 11/11/24 04:15 Morphine Sulfate 2 mg Q30M PRN IV 11/11/24 04:15 Meropenem 50 ml @ 17 mls/hr Q12HR IV 11/11/24 22:00 11/11/24 22:23 17 MLS/HR Sodium Chloride 1,000 ml @ 150 mls/hr Q6H40M IV 11/11/24 15:30 11/12/24 04:50 150 MLS/HR Allopurinol 100 mg DAILY PO 11/12/24 10:00 Calcium Carbonate 500 mg Q8HPRN PRN PO 11/11/24 20:00 11/11/24 20:10 500 MG laboratory and microbiology Laboratory Tests 11/12/24 06:29 Test 11/12/24 06:29 Range/Units Serum Glucose 108 H 74-106 mg/dL Problems(with codes): (1) ABDOMINAL PAIN (2) Dehydration (3) Diarrhea (4) VOMITING (5) Generalized weakness (6) Elevated troponin (7) Renal colic on left side (8) Acute on chronic renal failure (9) Fever, unspecified (10) Hydronephrosis, left (11) Pneumonia, unspecified organism (12) Cyst of kidney, acquired (13) Calculus in bladder (14) Benign prostatic hyperplasia without lower urinary tract symptoms Prognosis spoke with at the bedside. verbalized understanding of POC NPO awaiting PCN placement stone to be treated after creatinine normalizes and bacteremia resolved. Plan discussed with: Spouse, Other CT TAYLOR NP Nov 12, 2024 12:40
--- NOTE | 2024-11-12 16:06 | DVHPN2 ---
Progress Note Date Seen: Nov 12, 2024 Medical Necessity Reason Pt with a Central, PICC or Fol: No Subjective Patient reports: Other (sleepy/tired) Review of Systems: HEENT:Normal, RESPIRATORY:Abnormal Objective vital signs Vital Sign Date Time Temp Pulse Resp B/P (MAP) Pulse Ox O2 Delivery O2 Flow Rate FiO2 11/12/24 13:00 99.1 100 22 119/72 (88) 96 99.1 11/12/24 08:00 Nasal Cannula* 2 28 Total Intake and Output 11/11/24 11/11/24 11/12/24 15:00 23:00 07:00 Intake Total 1675 ml 275 ml 50 ml Balance 1675 ml 275 ml 50 ml medications Current Medications Medications Dose Ordered Sig/Akhil Route Start Time Stop Time Status Last Admin Dose Admin Tamsulosin HCl 0.4 mg QPM PO 11/11/24 18:00 11/11/24 18:17 0.4 MG Aspirin 81 mg DAILY PO 11/12/24 10:00 Hydralazine HCl 10 mg Q6HP PRN IV 11/11/24 04:15 Acetaminophen/ Hydrocodone Bitart 1 tab Q4HP PRN PO 11/11/24 04:15 Ondansetron HCl 4 mg Q4HP PRN IV 11/11/24 04:15 Docusate Sodium 100 mg BIDPRN PRN PO 11/11/24 04:15 Acetaminophen 650 mg Q6HP PRN PO 11/11/24 04:15 Nitroglycerin 0.4 mg Q5MINP PRN SL 11/11/24 04:15 Morphine Sulfate 2 mg Q30M PRN IV 11/11/24 04:15 Meropenem 50 ml @ 17 mls/hr Q12HR IV 11/11/24 22:00 11/11/24 22:23 17 MLS/HR Sodium Chloride 1,000 ml @ 150 mls/hr Q6H40M IV 11/11/24 15:30 11/12/24 13:01 150 MLS/HR Allopurinol 100 mg DAILY PO 11/12/24 10:00 Calcium Carbonate 500 mg Q8HPRN PRN PO 11/11/24 20:00 11/11/24 20:10 500 MG Examination: LUNGS:Abnormal, MSK:Abnormal laboratory and microbiology Laboratory Tests 11/12/24 06:29 Test 11/12/24 06:29 Range/Units Serum Glucose 108 H 74-106 mg/dL Microbiology Date/Time Source Procedure Growth Status 11/11/24 14:02 Blood Blood Culture - Preliminary NO GROWTH AFTER 24 HOURS OF INCUBATION. Resulted Problem List/Assessment/Plan Problem List/Assessment/Plan Acute kidney injury on chronic kidney disease 10 mm left obstructing kidney stone Elevated lactate History of hypertension currently hypotensive likely home medication effect recs dc ivf lasix iv pt appears tachypneic ir for nephrostomy urology Plan discussed with: Patient, Spouse My Orders My Orders Orders - NICKI CAMARGO MD Procedure Category Date Status Time * Radiologist Consult CONS 11/12/24 Transmitted 15:59 Furosemide Injection PHA 11/12/24 Transmitted (Lasix Injection) 16:15 NICKI CAMARGO MD Nov 12, 2024 16:06
[2024-11-12] MEDS: MEROPENEM 500MG IVPB 50 ML IV SCH (16:51)
[2024-11-12] MEDS: FUROSEMIDE 100 MG/10ML VIAL IV ONE (16:51)
[2024-11-13] VITALS (11 sets, daily range): BP systolic 109–133; BP diastolic 59–77; PULSE 62–97; RESP 14–21; TEMP 97.4–98; O2SAT 94–98
[2024-11-13] MEDS: LIDOCAINE 2%HCL (LOCAL ANESTH.) INJ 20ML MDV ONE (08:04)
[2024-11-13] MEDS: MIDAZOLAM HCL 2MG/2ML 2ml VIAL (1mg/ml) ONE (08:04)
[2024-11-13] MEDS: fentaNYL CITRATE 100 MCG/2 ML VL ONE (08:04)
[2024-11-13] MEDS: IODIXANOL 320MG/ML 100ML BTL IV ONE (08:20)
--- NOTE | 2024-11-13 10:13 | DVHPN2 ---
Reviewed: Care Plan, H&P, Labs, Medications, Previous Orders, Radiology Changes from previous H/P or p: No Changes Eyes: No Pain, No Vision change, No Conjunctivae inflammation, No Eyelid inflammation, No Other, No Redness ENT: No Ear pain, No Ear discharge, No Nose pain, No Nose discharge, No Nose congestion, No Mouth pain, No Mouth swelling, No Throat pain, No Throat swelling, No Other Cardiovascular: No Chest Pain, No Palpitations, No Orthopnea, No Paroxysmal Noc. Dyspnea, No Edema, No Lt Headedness, No Other Respiratory: No Cough, No Dry, No Shortness of breath, No SOB with excertion, No Wheezing, No Hemoptysis, No Pleuritic Pain, No Sputum, No Other Gastrointestinal: No Nausea, No Vomiting, No Abdominal Pain, No Diarrhea, No Constipation, No Melena, No Hematochezia, No Other Genitourinary: No Dysuria, No Frequency, No Incontinence, No Hematuria, No Retention, No Other Musculoskeletal: No other, No neck pain, No shoulder pain, No arm pain, No back pain, No hand pain, No leg pain, No foot pain Skin: No Rash, No Lesions, No Jaundice, No Bruising, No Other Objective Vitals Vital Signs Date Time Temp Pulse Resp B/P (MAP) Pulse Ox O2 Delivery O2 Flow Rate FiO2 11/13/24 05:00 98.0 77 16 120/71 (87) 94 98.0 11/12/24 20:00 Nasal Cannula* 2 28 Intake/Output Intake and Output 11/13/24 07:00 Intake Total 400 ml Output Total 2500 ml Balance -2100 ml Intake Oral 400 ml Output Urine Total 2500 ml # Voids 4 # Bowel Movements 3 Medications Current Medications Medications Dose Ordered Sig/Akhil Route Start Time Stop Time Status Last Admin Dose Admin Tamsulosin HCl 0.4 mg QPM PO 11/11/24 18:00 11/12/24 19:11 0.4 MG Aspirin 81 mg DAILY PO 11/12/24 10:00 Hydralazine HCl 10 mg Q6HP PRN IV 11/11/24 04:15 Acetaminophen/ Hydrocodone Bitart 1 tab Q4HP PRN PO 11/11/24 04:15 Ondansetron HCl 4 mg Q4HP PRN IV 11/11/24 04:15 Docusate Sodium 100 mg BIDPRN PRN PO 11/11/24 04:15 Acetaminophen 650 mg Q6HP PRN PO 11/11/24 04:15 Nitroglycerin 0.4 mg Q5MINP PRN SL 11/11/24 04:15 Morphine Sulfate 2 mg Q30M PRN IV 11/11/24 04:15 Allopurinol 100 mg DAILY PO 11/12/24 10:00 Calcium Carbonate 500 mg Q8HPRN PRN PO 11/11/24 20:00 11/11/24 20:10 500 MG Meropenem 50 ml @ 17 mls/hr Q12H IV 11/12/24 17:00 11/18/24 16:59 11/13/24 05:09 17 MLS/HR Laboratory Results Laboratory Tests 11/12/24 06:29 Urinalysis Test 11/12/24 01:40 Urine Color Light-orange (Yellow) Urine Clarity Ex.turbid (Clear) Urine pH 6.0 (5.0-9.0) Urine Specific [place] 1.025 (1.001-1.035) Urine Protein 2+ (Negative) H Urine Ketones Negative (Negative) Urine Blood 3+ /uL (Negative) H Urine Nitrite Negative (Negative) Urine Bilirubin Negative (Negative) Urine Urobilinogen Normal mg/dL (Negative) Urine Leukocyte Esterase 3+ /uL (Negative) Urine RBC 118 /hpf (0 - 3) Urine WBC Clumps Present /hpf (None Seen) Urine Microscopic WBC 1181 /HPF (0-3) H Urine Squamous Epithelial Cells None seen /hpf (<5) Urine Bacteria Few /hpf (None Seen) H Urine Yeast (Budding) Moderate /hpf (None Seen) Urine Creatinine 102.14 mg/dL (30.0-125.0) Urine Glucose Normal mg/dL (Normal) Microbiology Microbiology Date/Time Source Procedure Growth Status 11/12/24 01:40 Urine - Midstream Clean Catch Urine Culture - Preliminary Resulted 11/11/24 14:02 Blood Blood Culture - Preliminary NO GROWTH AFTER 24 HOURS OF INCUBATION. Resulted Labs and/or images reviewed: Labs reviewed by me, Image(s) reviewed by me Assessment/Plan Assessment/Plan Septic shock with altered mental status elevated white count secondary to acute urinary tract infection: Bacteremia with Gram-negative rods: Continue Meropenem Acute urinary tract infection: urine cultures [place], continue Meropenem Acute hypotension: IV fluids Bilateral community-acquired pneumonia: Rocephin azithromycin 10 mm left ureteral stone with left hydronephrosis: Urology consult by Dr. Meyer appreciated, Radiology consult for left nephrostomy tube placement Bilateral Kidney stones. Urology planning for cystoscopy and ESWL as an outpatient after infection controlled BPH: Flomax Bladder calculi Acute lactic acidosis Gallstones Diverticulosis Acute left renal colic Gout: Allopurinol KOURTNEY with BUN creatinine 36 and 2.5: Consult by Dr Rodriguez appreciated Flora test negative Flu test negative Time spent 50 minutes Advanced care planning time 20 minutes Patient is full code Poornima Mai ph: [phone] at bedside Plan discussed with: Patient, Spouse Date of Service: Nov 13, 2024 Billing Provider: MAREN MENENDEZ MD Common Visit Codes: [id number] INP/OBS CARE(HIGH) MAREN MENENDEZ MD Nov 13, 2024 10:13
--- NOTE | 2024-11-13 10:36 | DVH ---
US US GUIDANCE FOR NEEDLE PLACEME, HISTORY: NEPHROSTOMY TUBE PLACEMENT due to obstructive uropathy from a kidney stone PROCEDURE: Informed consent was obtained. The patient was placed on the fluoroscopic table in a prone position and IV sedation administered. The left flank was prepped with chlorhexidine which was allow ed to dry and draped in the usual sterile fashion. Time out was performed. and the soft tissues infil trated with 1% lidocaine local anesthetic. Utilizing ultrasound guidance, a 21 gauge Accu Stick needl e was advanced from a posterolateral approach into an middle pole calyx, and a small amount of contra st was injected under fluoroscopy to confirm positioning. Over a mandril wire, exchange was made to a non-vascular access set, through which was advanced an 0.035 wire. Following serial dilation, an 8.5 [place] multipurpose nephrostomy catheter was placed with tip pigtailed within the renal pelvis. Posi tion was confirmed with antegrade nephrostogram. The catheter was secured in place and connected to g ravity drainage. A sterile dressing was applied. No immediate complication was identified. DAP 155 FLUOROSCOPY TIME: 2.3 minutes. CONTRAST USED: 15 mL Isovue 300. SEDATION: Dr. Rufus Georges was personally responsible for the administration of moderate sedation during the procedure performed, including the use of an independent trained observer who had no other duties during the procedure. The drugs utilized were IV fentanyl and versed (see nursing log for details). The total time of supervision by the attending physician was approximately 45 minutes. FINDINGS: Mild to moderate dilation of the left renal collecting system due to a proximal ureter obst ructive stone New 8.5 [place] nephrostomy tube via a posterior mid pole calyceal access, with loop coi led within the renal pelvis. IMPRESSION: Left hydronephrosis due to obstructive proximal ureteral stone, status post placement of 8.5 [place] left percutaneous nephrostomy catheter. PLAN: Routine catheter care.
[2024-11-13] MEDS: HYDROcodone-ACET 5/325MG TAB PO PRN (12:25)
--- NOTE | 2024-11-13 13:04 | DVHPN2 ---
Progress Note - Dictate Date Seen: Nov 13, 2024 Medical Necessity Reason Pt with a Central, PICC or Fol: No Subjective sleeping vital signs Vital Sign Date Time Temp Pulse Resp B/P (MAP) Pulse Ox O2 Delivery O2 Flow Rate FiO2 11/13/24 10:06 97.7 74 14 133/70 (91) 97 97.7 11/12/24 20:00 Nasal Cannula* 2 28 Total Intake and Output 11/12/24 11/12/24 11/13/24 14:59 22:59 06:59 Intake Total 0 ml 400 ml Output Total 2500 ml Balance 0 ml -2100 ml medications Current Medications Medications Dose Ordered Sig/Akhil Route Start Time Stop Time Status Last Admin Dose Admin Tamsulosin HCl 0.4 mg QPM PO 11/11/24 18:00 11/12/24 19:11 0.4 MG Aspirin 81 mg DAILY PO 11/12/24 10:00 Hydralazine HCl 10 mg Q6HP PRN IV 11/11/24 04:15 Acetaminophen/ Hydrocodone Bitart 1 tab Q4HP PRN PO 11/11/24 04:15 11/13/24 12:25 1 TAB Ondansetron HCl 4 mg Q4HP PRN IV 11/11/24 04:15 Docusate Sodium 100 mg BIDPRN PRN PO 11/11/24 04:15 Acetaminophen 650 mg Q6HP PRN PO 11/11/24 04:15 Nitroglycerin 0.4 mg Q5MINP PRN SL 11/11/24 04:15 Morphine Sulfate 2 mg Q30M PRN IV 11/11/24 04:15 Allopurinol 100 mg DAILY PO 11/12/24 10:00 11/13/24 12:26 100 MG Calcium Carbonate 500 mg Q8HPRN PRN PO 11/11/24 20:00 11/11/24 20:10 500 MG Meropenem 50 ml @ 17 mls/hr Q12H IV 11/12/24 17:00 11/18/24 16:59 11/13/24 05:09 17 MLS/HR laboratory and microbiology Laboratory Tests 11/12/24 06:29 Test 11/12/24 06:29 Range/Units Serum Glucose 108 H 74-106 mg/dL Assessment/Plan pt had PCN placement repeat BMP Problems(with codes): (1) Generalized weakness (2) Elevated troponin (3) Renal colic on left side (4) Acute on chronic renal failure (5) Fever, unspecified (6) Hydronephrosis, left (7) Pneumonia, unspecified organism (8) Cyst of kidney, acquired (9) Calculus in bladder (10) Benign prostatic hyperplasia without lower urinary tract symptoms (11) ABDOMINAL PAIN (12) Dehydration (13) Diarrhea (14) VOMITING Plan discussed with: Patient, Spouse, Other CT TAYLOR NP Nov 13, 2024 13:04
[2024-11-13 13:30] LABS: Potassium 3.8 mmol/L (3.5-5.1); Sodium 141 mmol/L (136-145)
[2024-11-13 13:31] LABS: Calcium 9.5 mg/dL (8.7-10.4); Carbon Dioxide 22 mmol/L (20-31)
[2024-11-13 13:38] LABS: Glucose 106 mg/dL (74-106)
[2024-11-13 13:43] LABS: Anion Gap 10 (5-15); Blood Urea Nitrogen 43 mg/dL (9-23); Chloride 109 mmol/L (98-107)
--- NOTE | 2024-11-13 16:00 | DVHPN2 ---
Progress Note Date Seen: Nov 13, 2024 Medical Necessity Reason Pt with a Central, PICC or Fol: No Subjective Patient reports: Other (pt sleepy) Review of Systems: Deferred Objective vital signs Vital Sign Date Time Temp Pulse Resp B/P (MAP) Pulse Ox O2 Delivery O2 Flow Rate FiO2 11/13/24 13:00 97.7 84 20 118/77 (91) 95 97.7 11/13/24 08:00 Nasal Cannula* 2 28 Total Intake and Output 11/12/24 11/12/24 11/13/24 15:00 23:00 07:00 Intake Total 0 ml 400 ml Output Total 2500 ml Balance 0 ml -2100 ml medications Current Medications Medications Dose Ordered Sig/Akhil Route Start Time Stop Time Status Last Admin Dose Admin Tamsulosin HCl 0.4 mg QPM PO 11/11/24 18:00 11/12/24 19:11 0.4 MG Aspirin 81 mg DAILY PO 11/12/24 10:00 Hydralazine HCl 10 mg Q6HP PRN IV 11/11/24 04:15 Acetaminophen/ Hydrocodone Bitart 1 tab Q4HP PRN PO 11/11/24 04:15 11/13/24 12:25 1 TAB Ondansetron HCl 4 mg Q4HP PRN IV 11/11/24 04:15 Docusate Sodium 100 mg BIDPRN PRN PO 11/11/24 04:15 Acetaminophen 650 mg Q6HP PRN PO 11/11/24 04:15 Nitroglycerin 0.4 mg Q5MINP PRN SL 11/11/24 04:15 Morphine Sulfate 2 mg Q30M PRN IV 11/11/24 04:15 Allopurinol 100 mg DAILY PO 11/12/24 10:00 11/13/24 12:26 100 MG Calcium Carbonate 500 mg Q8HPRN PRN PO 11/11/24 20:00 11/11/24 20:10 500 MG Meropenem 50 ml @ 17 mls/hr Q12H IV 11/12/24 17:00 11/18/24 16:59 11/13/24 05:09 17 MLS/HR laboratory and microbiology Laboratory Tests 11/13/24 12:59 11/12/24 06:29 Test 11/13/24 12:59 Range/Units Serum Glucose 106 74-106 mg/dL Microbiology Date/Time Source Procedure Growth Status 11/12/24 01:40 Urine - Midstream Clean Catch Urine Culture - Preliminary Resulted 11/11/24 14:02 Blood Blood Culture - Preliminary NO GROWTH AFTER 48 HOURS OF INCUBATION. Resulted Problem List/Assessment/Plan Problem List/Assessment/Plan Acute kidney injury on chronic kidney disease---obstruction +sepsis severe sepsis 10 mm left obstructing kidney stone s/p nephrostomy tube Elevated lactate History of hypertension currently hypotensive likely home medication effect recs better renal function slightly renally dose abx Plan discussed with: Other My Orders My Orders Orders - NICKI CAMARGO MD Procedure Category Date Status Time Basic Metabolic Panel LAB 11/14/24 Verified 05:00 Basic Metabolic Panel LAB 11/15/24 Verified 05:00 Basic Metabolic Panel LAB 11/16/24 Verified 05:00 Basic Metabolic Panel LAB 11/17/24 Verified 05:00 Basic Metabolic Panel LAB 11/18/24 Verified 05:00 Basic Metabolic Panel LAB 11/19/24 Verified 05:00 Basic Metabolic Panel LAB 11/20/24 Verified 05:00 NICKI CAMARGO MD Nov 13, 2024 16:00
--- NOTE | 2024-11-13 18:20 | MEDREC ---
FORMERLY [facility], [facility] ASP Intervention Section I FORMERLY [facility], [facility] ASP Intervention: Deescalate AB based on CS (PLEASE CONSIDER DE-ESCALATION BASED ON CULTURE RESULTS) JHON SINGLETON PHARMACIST Nov 13, 2024 18:20
[2024-11-14 01:00] VITALS: BP 117/70; PULSE 83; RESP 20; TEMP 97.8; O2SAT 95
[2024-11-14 05:00] VITALS: BP 115/71; PULSE 96; RESP 20; TEMP 97.8; O2SAT 96
[2024-11-14 06:24] LABS: Potassium 3.5 mmol/L (3.5-5.1); Sodium 140 mmol/L (136-145)
[2024-11-14 06:25] LABS: Anion Gap 10 (5-15); Carbon Dioxide 23 mmol/L (20-31)
[2024-11-14 06:26] LABS: Calcium 9.2 mg/dL (8.7-10.4)
[2024-11-14 06:30] LABS: Glucose 104 mg/dL (74-106)
[2024-11-14 06:31] LABS: BUN/Creatinine Ratio 22.4 (10.0-20.0)
[2024-11-14 06:33] LABS: Blood Urea Nitrogen 41 mg/dL (9-23); Chloride 107 mmol/L (98-107)
[2024-11-14 08:00] VITALS: PULSE 90
--- NOTE | 2024-11-14 11:59 | DVHPN2 ---
Reviewed: Care Plan, H&P, Labs, Medications, Previous Orders, Radiology Changes from previous H/P or p: No Changes Eyes: No Pain, No Vision change, No Conjunctivae inflammation, No Eyelid inflammation, No Other, No Redness ENT: No Ear pain, No Ear discharge, No Nose pain, No Nose discharge, No Nose congestion, No Mouth pain, No Mouth swelling, No Throat pain, No Throat swelling, No Other Cardiovascular: No Chest Pain, No Palpitations, No Orthopnea, No Paroxysmal Noc. Dyspnea, No Edema, No Lt Headedness, No Other Respiratory: No Cough, No Dry, No Shortness of breath, No SOB with excertion, No Wheezing, No Hemoptysis, No Pleuritic Pain, No Sputum, No Other Gastrointestinal: No Nausea, No Vomiting, No Abdominal Pain, No Diarrhea, No Constipation, No Melena, No Hematochezia, No Other Genitourinary: No Dysuria, No Frequency, No Incontinence, No Hematuria, No Retention, No Other Musculoskeletal: No other, No neck pain, No shoulder pain, No arm pain, No back pain, No hand pain, No leg pain, No foot pain Skin: No Rash, No Lesions, No Jaundice, No Bruising, No Other Objective Vitals Vital Signs Date Time Temp Pulse Resp B/P (MAP) Pulse Ox O2 Delivery O2 Flow Rate FiO2 11/14/24 05:00 97.8 96 20 115/71 (86) 96 97.8 11/13/24 20:00 Nasal Cannula* 2 28 Intake/Output Intake and Output 11/14/24 07:00 Intake Total 1505 ml Output Total 2800 ml Balance -1295 ml Intake Oral 1455 ml IV Total 50 ml Output Urine Total 2100 ml Other 700 ml # Voids 2 Medications Current Medications Medications Dose Ordered Sig/Akhil Route Start Time Stop Time Status Last Admin Dose Admin Tamsulosin HCl 0.4 mg QPM PO 11/11/24 18:00 11/13/24 18:55 0.4 MG Aspirin 81 mg DAILY PO 11/12/24 10:00 Hydralazine HCl 10 mg Q6HP PRN IV 11/11/24 04:15 Acetaminophen/ Hydrocodone Bitart 1 tab Q4HP PRN PO 11/11/24 04:15 11/13/24 16:30 1 TAB Ondansetron HCl 4 mg Q4HP PRN IV 11/11/24 04:15 Docusate Sodium 100 mg BIDPRN PRN PO 11/11/24 04:15 Acetaminophen 650 mg Q6HP PRN PO 11/11/24 04:15 Nitroglycerin 0.4 mg Q5MINP PRN SL 11/11/24 04:15 Morphine Sulfate 2 mg Q30M PRN IV 11/11/24 04:15 Allopurinol 100 mg DAILY PO 11/12/24 10:00 11/14/24 11:15 100 MG Calcium Carbonate 500 mg Q8HPRN PRN PO 11/11/24 20:00 11/11/24 20:10 500 MG Meropenem 50 ml @ 17 mls/hr Q12H IV 11/12/24 17:00 11/18/24 16:59 11/14/24 06:01 17 MLS/HR Laboratory Results Laboratory Tests 11/12/24 06:29 11/14/24 05:43 Chemistry Test 11/13/24 12:59 11/14/24 05:43 Calcium Level 9.5 mg/dL (8.7-10.4) 9.2 mg/dL (8.7-10.4) Urinalysis Test 11/12/24 01:40 Urine Color Light-orange (Yellow) Urine Clarity Ex.turbid (Clear) Urine pH 6.0 (5.0-9.0) Urine Specific [place] 1.025 (1.001-1.035) Urine Protein 2+ (Negative) H Urine Ketones Negative (Negative) Urine Blood 3+ /uL (Negative) H Urine Nitrite Negative (Negative) Urine Bilirubin Negative (Negative) Urine Urobilinogen Normal mg/dL (Negative) Urine Leukocyte Esterase 3+ /uL (Negative) Urine RBC 118 /hpf (0 - 3) Urine WBC Clumps Present /hpf (None Seen) Urine Microscopic WBC 1181 /HPF (0-3) H Urine Squamous Epithelial Cells None seen /hpf (<5) Urine Bacteria Few /hpf (None Seen) H Urine Yeast (Budding) Moderate /hpf (None Seen) Urine Creatinine 102.14 mg/dL (30.0-125.0) Urine Glucose Normal mg/dL (Normal) Microbiology Microbiology Date/Time Source Procedure Growth Status 11/12/24 01:40 Urine - Midstream Clean Catch Urine Culture - Final Complete 11/11/24 14:02 Blood Blood Culture - Preliminary NO GROWTH AFTER 48 HOURS OF INCUBATION. Resulted Labs and/or images reviewed: Labs reviewed by me, Image(s) reviewed by me Assessment/Plan Assessment/Plan Septic shock with altered mental status elevated white count secondary to acute urinary tract infection: Bacteremia with E coli, change meropenem to Rocephin 1 g IV daily Acute urinary tract infection: Rocephin 1 g IV daily Acute hypotension secondary to sepsis: IV fluids Bilateral community-acquired pneumonia: Rocephin azithromycin 10 mm left ureteral stone with left hydronephrosis: Urology consult by Dr. Meyer appreciated, status post left nephrostomy tube placement by Radiologist Bilateral Kidney stones. Urology planning for cystoscopy and ESWL as an outpatient after infection controlled BPH: Flomax Bladder calculi Acute lactic acidosis Gallstones Diverticulosis Acute left renal colic Gout: Allopurinol KOURTNEY with BUN creatinine 36 and 2.5: Consult by Dr Rodriguez appreciated Flora test negative Flu test negative Time spent 50 minutes Advanced care planning time 20 minutes Patient is full code Poornima Mai ph: [phone] at bedside Plan discussed with: Patient Date of Service: Nov 14, 2024 Billing Provider: MAREN MENENDEZ MD Common Visit Codes: [id number] INP/OBS CARE(HIGH) MAREN MENENDEZ MD Nov 14, 2024 11:59
--- NOTE | 2024-11-14 12:10 | DVHDS2 ---
Discharge Summary Date of Admission Nov 11, 2024 at 04:06 Date of Discharge: Nov 14, 2024 Admitting Diagnosis Generalized weakness left flank pain Wounds: Left nephrostomy tube placement Labs/Diagnostic Data: Laboratory Results Test 11/14/24 05:43 11/12/24 06:29 11/12/24 01:40 11/11/24 10:20 Sodium Level 140 mmol/L (136-145) Potassium Level 3.5 mmol/L (3.5-5.1) Chloride Level 107 mmol/L (98-107) Carbon Dioxide Level 23 mmol/L (20-31) Anion Gap 10 (5-15) Blood Urea Nitrogen 41 mg/dL (9-23) Creatinine 1.83 mg/dL (0.700-1.30) Glomerular Filtration Rate Calc 38 mL/min (>90) BUN/Creatinine Ratio 22.4 (10.0-20.0) Serum Glucose 104 mg/dL (74-106) Calcium Level 9.2 mg/dL (8.7-10.4) White Blood Count 11.2 10^3/uL (4.4-10.8) Red Blood Count 3.74 10^6/uL (4.5-5.90) Hemoglobin 11.4 g/dL (13.5-17.5) Hematocrit 34.7 % (41.0-53.0) Mean Corpuscular Volume 92.9 fL (80.0-100.0) Mean Corpuscular Hemoglobin 30.4 pg (28.0-32.0) Mean Corpuscular Hemoglobin Concent 32.8 g/dL (32.0-36.0) Red Cell Distribution Width 15.4 % (11.8-14.3) Platelet Count 59 10^3/uL (140-450) Mean Platelet Volume 10.6 fL (6.9-10.8) Neutrophils (%) (Auto) % (37.0-80.0) Lymphocytes (%) (Auto) % (10.0-50.0) Monocytes (%) (Auto) % (0.0-12.0) Basophils (%) (Auto) % (0.0-2.0) Neutrophils # (Auto) 10 ^3/uL (1.6-8.6) Lymphocytes # (Auto) 10 ^3/uL (0.4-5.4) Monocytes # (Auto) 10 ^3/uL (0-1.3) Differential Total Cells Counted 100.0 (100) Neutrophils % (Manual) 88 (37.0-80.0) Band Neutrophils % (Manual) 6 Lymphocytes % (Manual) 3 (10.0-50.0) Monocytes % (Manual) 3 (0-12) Eosinophils % (Manual) 0 (0-7) Basophils % (Manual) 0 (0.0-2.0) Metamyelocytes % (manual) 0 Myelocytes % (Manual) 0 Promyelocytes % (Manual) 0 Blast Cells % (Manual) 0 Reactive Lymphocytes 0 Platelet Estimate Decreased Prothrombin Time 11.8 sec (9.3-11.8) Prothrombin Time INR 1.13 (0.9-1.15) Activated Partial Thromboplast Time 30.6 SEC (24.5-34.5) Total Bilirubin 0.7 mg/dL (0.2-1.0) Aspartate Amino Transferase (AST) 30 U/L (13-40) Alanine Aminotransferase (ALT) 20 U/L (7-40) Alkaline Phosphatase 74 U/L (46-116) Total Protein 6.1 g/dL (5.7-8.2) Albumin 3.5 g/dL (3.2-4.8) Urine Color Light-orange (Yellow) Urine Clarity Ex.turbid (Clear) Urine pH 6.0 (5.0-9.0) Urine Specific [place] 1.025 (1.001-1.035) Urine Protein 2+ (Negative) Urine Ketones Negative (Negative) Urine Blood 3+ /uL (Negative) Urine Nitrite Negative (Negative) Urine Bilirubin Negative (Negative) Urine Urobilinogen Normal mg/dL (Negative) Urine Leukocyte Esterase 3+ /uL (Negative) Urine RBC 118 /hpf (0 - 3) Urine WBC Clumps Present /hpf (None Seen) Urine Microscopic WBC 1181 /HPF (0-3) Urine Squamous Epithelial Cells None seen /hpf (<5) Urine Bacteria Few /hpf (None Seen) Urine Yeast (Budding) Moderate /hpf (None Seen) Urine Creatinine 102.14 mg/dL (30.0-125.0) Urine Glucose Normal mg/dL (Normal) Lactic Acid Level 2.3 mmol/L (0.4-2.0) Test 11/11/24 06:47 11/11/24 05:09 11/11/24 01:57 11/10/24 22:48 POC Glucose 112 mg/dl (70-106) Eosinophils (%) (Auto) 0.1 % (0.0-7.0) Eosinophils # (Auto) 0 10 ^3/uL (0-0.8) Basophils # (Auto) 0 10 ^3/uL (0-0.2) Nucleated Red Blood Cells 0.0 % Uric Acid 6.4 mg/dL (3.7-9.2) Troponin I High Sensitivity 102 ng/L (</=54) Influenza Type A Antigen Negative (Negative) Influenza Type B Antigen Negative (Negative) SARS-CoV-2 Antigen (Rapid) Negative (NEGATIVE) Test 11/10/24 22:31 Lipase 28 U/L (12-53) Other Laboratory Tests 11/14/24 05:43 11/12/24 06:29 Brief Hx & Hospital Course: 74-year-old male with a history of hypotension BPH gallstones diverticulosis came in for left flank pain found to have 10 mm left distal ureteral stone with hydronephrosis urology consult by Dr. Meyer. Patient received pain medications and IV fluids. Had left nephrostomy tube placed by Radiologist. Dr. Meyer advised cystoscopy and ESWL once the infection is controlled. UTI treated with meropenem. Blood cultures came positive for E coli antibiotic changed to Rocephin 1 g IV daily for three weeks patient also has a history of gout. [place] I was addressed by hospital carrier. Flora test negative flu test negative patient has a history of BPH and bladder calculi. Being discharged to [facility] to receive Rocephin 1 g IV daily for three weeks for complicated UTI with bacteremia Consults/Reason for consult Urology Dr. Meyer Nephrology Dr Rodriguez Operations or Procedures Left nephrostomy tube placed Condition at Discharge: Fair Final Diagnosis/Problems List Septic shock with altered mental status elevated white count secondary to acute urinary tract infection: Bacteremia with E coli, change meropenem to Rocephin 1 g IV daily Acute urinary tract infection: Rocephin 1 g IV daily Acute hypotension secondary to sepsis: IV fluids Bilateral community-acquired pneumonia: Rocephin azithromycin 10 mm left ureteral stone with left hydronephrosis: Urology consult by Dr. Meyer appreciated, status post left nephrostomy tube placement by Radiologist Bilateral Kidney stones. Urology planning for cystoscopy and ESWL as an outpatient after infection controlled BPH: Flomax Bladder calculi Acute lactic acidosis Gallstones Diverticulosis Acute left renal colic Gout: Allopurinol KOURTNEY with BUN creatinine 36 and 2.5: Consult by Dr Jennifer Hines test negative Flu test negative Discharge Disposition: [facility] Facility Discharge Instruct/Medications Diet: Cardiac 2g Na,low cholest Activity: Light activity Follow Up/Referral: Follow up with the halfway Dr Follow up with the Urology Dr. Meyer in 3-4 weeks for kidney stone treatment Medications: Rocephin 1 g IV daily for three weeks for complicated UTI See list for other meds 35 (Time taken for discharge summary 35 mts) Discharge Statement: "Patient was advised to return to the ER or call 911 if any headaches, dizziness, shortness of breath, chest pain, abdominal pain, bleeding, fevers, or worsening of medical condition. Patient was counseled about treatment plan, medications, possible side effects, patientverbalized understanding. All questions were answered to the best of my ability. This discharge took greater then 30 minutes in planning, reviewing documentation, counseling the patient, and discussing with other team members." ASSESSMENT ASSESSMENT Hospital Course Improved Assessment Septic shock with altered mental status elevated white count secondary to acute urinary tract infection: Bacteremia with E coli, change meropenem to Rocephin 1 g IV daily Acute urinary tract infection: Rocephin 1 g IV daily Acute hypotension secondary to sepsis: IV fluids Bilateral community-acquired pneumonia: Rocephin azithromycin 10 mm left ureteral stone with left hydronephrosis: Urology consult by Dr. Meyer appreciated, status post left nephrostomy tube placement by Radiologist Bilateral Kidney stones. Urology planning for cystoscopy and ESWL as an outpatient after infection controlled BPH: Flomax Bladder calculi Acute lactic acidosis Gallstones Diverticulosis Acute left renal colic Gout: Allopurinol KOURTNEY with BUN creatinine 36 and 2.5: Consult by Dr Jennifer Hines test negative Flu test negative Date of Service: Nov 14, 2024 Billing Provider: MAREN MENENDEZ MD Common Visit Codes: 21056-YZX/OBS DISCH DAY >30min MAREN MENENDEZ MD Nov 14, 2024 12:10
[2024-11-14] MEDS ORDERED: POLYETHYLENE GLYCOL 17 GM PWDR PO PRN (12:30)
[2024-11-14 13:00] VITALS: BP 133/83; PULSE 87; RESP 18; TEMP 98.3; O2SAT 94
--- NOTE | 2024-11-14 15:36 | DVHPN2 ---
Progress Note Date Seen: Nov 14, 2024 Medical Necessity Reason Pt with a Central, PICC or Fol: No Subjective Patient reports: No new complaints, Feels better Review of Systems: HEENT:Normal, CVS:Normal, RESPIRATORY:Normal, GI:Normal, :Normal, MSK:Normal, NEURO:Normal Objective vital signs Vital Sign Date Time Temp Pulse Resp B/P (MAP) Pulse Ox O2 Delivery O2 Flow Rate FiO2 11/14/24 05:00 97.8 96 20 115/71 (86) 96 97.8 11/13/24 20:00 Nasal Cannula* 2 28 Total Intake and Output 11/13/24 11/13/24 11/14/24 15:00 23:00 07:00 Intake Total 230 ml 675 ml 600 ml Output Total 2800 ml Balance 230 ml 675 ml -2200 ml medications Current Medications Medications Dose Ordered Sig/Akhil Route Start Time Stop Time Status Last Admin Dose Admin Tamsulosin HCl 0.4 mg QPM PO 11/11/24 18:00 11/13/24 18:55 0.4 MG Aspirin 81 mg DAILY PO 11/12/24 10:00 Hydralazine HCl 10 mg Q6HP PRN IV 11/11/24 04:15 Acetaminophen/ Hydrocodone Bitart 1 tab Q4HP PRN PO 11/11/24 04:15 11/13/24 16:30 1 TAB Ondansetron HCl 4 mg Q4HP PRN IV 11/11/24 04:15 Docusate Sodium 100 mg BIDPRN PRN PO 11/11/24 04:15 Acetaminophen 650 mg Q6HP PRN PO 11/11/24 04:15 Nitroglycerin 0.4 mg Q5MINP PRN SL 11/11/24 04:15 Morphine Sulfate 2 mg Q30M PRN IV 11/11/24 04:15 Allopurinol 100 mg DAILY PO 11/12/24 10:00 11/14/24 11:15 100 MG Calcium Carbonate 500 mg Q8HPRN PRN PO 11/11/24 20:00 11/11/24 20:10 500 MG Meropenem 50 ml @ 17 mls/hr Q12H IV 11/12/24 17:00 11/18/24 16:59 11/14/24 06:01 17 MLS/HR Polyethylene Glycol 17 gm DAILYPRN PRN PO 11/14/24 12:30 laboratory and microbiology Laboratory Tests 11/14/24 05:43 11/12/24 06:29 Test 11/14/24 05:43 Range/Units Serum Glucose 104 74-106 mg/dL Microbiology Date/Time Source Procedure Growth Status 11/12/24 01:40 Urine - Midstream Clean Catch Urine Culture - Final Complete 11/11/24 14:02 Blood Blood Culture - Preliminary NO GROWTH AFTER 72 HOURS OF INCUBATION. Resulted Problem List/Assessment/Plan Problem List/Assessment/Plan Acute kidney injury on chronic kidney disease---obstruction +sepsis severe sepsis 10 mm left obstructing kidney stone s/p nephrostomy tube Elevated lactate History of hypertension recs better renal function renally dose abx Outpatient ESWL per Urology Plan discussed with: Patient NICKI CAMARGO MD Nov 14, 2024 15:36
[2024-11-14] MEDS ORDERED: MEROPENEM 1GM IVPB 50 ML IV SCH (18:00)
== END 2024-11-14 17:00 | DRG 871 ==
LOC: EDBD 22:05 → ER 22:05 → OVERFLOW 11-11 04:06 → TELE-CENTR 11-11 21:16
PROVIDERS: ADMIT Family Medicine; ATTEND Family Medicine
PROC: 0T943ZZ Drainage of Left Kidney Pelvis, Percutaneous Approach (ICD-10-PCS; principal; 2024-11-13)
DX: A41.51 Sepsis due to Escherichia coli [E. coli] (principal); J18.9 Pneumonia, unspecified organism; R65.21 Severe sepsis with septic shock; N17.9 Acute kidney failure, unspecified; E87.21 Acute metabolic acidosis; N13.6 Pyonephrosis; J98.11 Atelectasis; I12.9 Hypertensive chronic kidney disease with stage 1 through stage 4 chronic kidney disease, or unspecified chronic kidney disease; I95.89 Other hypotension; Z20.822 Contact with and (suspected) exposure to COVID-19; K57.30 Diverticulosis of large intestine without perforation or abscess without bleeding; N18.9 Chronic kidney disease, unspecified; N40.0 Benign prostatic hyperplasia without lower urinary tract symptoms; N21.0 Calculus in bladder; N28.1 Cyst of kidney, acquired; K80.20 Calculus of gallbladder without cholecystitis without obstruction; M10.9 Gout, unspecified; Z79.899 Other long term (current) drug therapy; Z87.442 Personal history of urinary calculi; Z87.891 Personal history of nicotine dependence; Z88.1 Allergy status to other antibiotic agents; Z93.6 Other artificial openings of urinary tract status
CPT/HCPCS: 36415; 50432; 71045; 74018; 74177; 74425; 76775; 76942; 80048; 80053; 81001; 82570; 82962; 83605; 83690; 84484; 84550; 85007; 85025; 85027; 85610; 85730; 86850; 86900; 86901; 87040; 87077; 87086; 87186; 87426; 87804; 93005; 93306; 96361; 96365; 96367; 96375; 97163; 99152; 99291; C1894; G0378; J2185; J2250; J2405; Q9967

== ENCOUNTER 2024-12-21 11:52 | Inpatient (IN) | payer MEDICARE ==
[~2024-12-21] VITALS: Ht 170.2 cm; Wt 60.5 kg
--- NOTE | 2024-12-21 14:01 | ED.PDOC ---
History of Present Illness HPI Comments 74M presents to the ER w/ Hx of Kidney stones which may be associated to the c/c of a tube replacement. Pt reports on having a kidney infx 6 weeks ago and they placed a nephrostomy bag. Pt's home health care informed the pt that he needs to be tied until his scheduled Sx on Tuesday. PMHx of Gout, and HTN. Denies chills, fever, N/V/D, SOB, CP or no other associated symptoms, modifiers, recent injuries or sick contacts at this time. Chief Complaint: Tube Replacement Time Seen by MD: 13:30 Primary Care Provider: unknown Reviewed Notes: Nurses Notes, Medications, Allergies Allergies: Coded Allergies: Levofloxacin (Verified Allergy, Unknown, 02/17/18) Home Meds Reported Medications Benazepril Hcl (Benazepril Hcl) 10 Mg Tab, 1 TAB PO DAILY, #30 TAB 5 Refills 02/17/18 Allopurinol (Allopurinol) 300 Mg Tab, 300 MG PO DAILY for 30 Days, MG 02/17/18 Furosemide (Furosemide) 20 Mg Tab, 20 MG PO DAILY for 30 Days, MG 02/17/18 Potassium Chloride (POTASSIUM CHLORIDE CR) 10 Meq Tb, 1 TAB PO DAILY, #30 TAB 5 Refills 02/17/18 Atenolol (Atenolol) 25 Mg Tab, 25 MG PO DAILY for 30 Days, MG 02/17/18 Information Source: Patient Mode of Arrival: Ambulatory Severity: Moderate Timing: Weeks Duration: Since onset Prehospital treatment: None Past Medical History PAST MEDICAL HISTORY: Gout, HTN, Kidney Stones Surgical History: Denies all surgeries Surgical History (Other): Nephrostomy Bag Family History Family History: Reviewed,noncontributory to illness, Unknown Social History Smoker: Non-Smoker Alcohol: Unknown Drugs: Denies Drug Use Lives In: Home Constitutional: reports: others (Tube Replacement); denies: chills, diapho resis, fatigue, fever, malaise, sweats, weakness EENTM: denies: blurred vision, double vision, ear bleeding, ear discharge, ear drainage, ear pain, ear ringing, eye pain, eye redness, hearing loss, mouth pain, mouth swelling, nasal discharge, nose bleeding, nose congestion, nose pain, photophobia, tearing, throat pain, throat swelling, voice changes, others Respiratory: denies: cough, hemoptysis, orthopnea, SOB at rest, shortness of breath, SOB with excertion, stridor, wheezing, others Cardiovascular: denies: chest pain, dizzy spells, diaphoresis, Dyspnea on exertion, edema, irregular heart beat, left arm pain, lightheadedness, palpitations, PND, syncope, others Gastrointestinal: denies: abdomen distended, abdominal pain, blood streaked bowels, constipated, diarrhea, dysphagia, difficulty swallowing, hematemesis, melena, nausea, poor appetite, poor fluid intake, rectal bleeding, rectal pain, vomiting, others Genitourinary: denies: burning, dysuria, flank pain, frequency, hematuria, incontinence, penile discharge, penile sore, pain, testicle pain, testicle swelling, urgency, others Neurological: denies: dizziness, fainting, headache, left sided numbness, left sided weakness, numbness, paresthesia, pre-existing deficit, right sided numbness, right sided weakness, seizure, speech problems, tingling, tremors, weakness, others Musculoskeletal: denies: back pain, gout, joint pain, joint swelling, muscle pain, muscle stiffness, neck pain, others Integumetry: denies: bruises, change in color, change in hair/nails, dryness, laceration, lesions, lumps, rash, wounds, others Allergic/Immunocompromised: denies: Difficulty Healing, Frequent Infections, Hives, Itching, others Hematologic/Lymphatic: denies: anemia, blood clots, easy bleeding, easy bruising, swollen glands, others Endocrine: denies: excessive hunger, excessive sweating, excessive thirst, excessive urination, flushing, intolerance to cold, intolerance to heat, unexplained weight gain, unexplained weight loss, others Psychiatric: denies: anxiety, bipolar disorder, depression, hopeless, panic disorder, schizophrenia, sleepless, suicidal, others All Other Systems: Reviewed and Negative Physical Exam General Appearance: Moderate Distress, Normal HEENT: Normal ENT Inspection, Pharynx Normal, TMs Normal Neck: Full Range of Motion, Non-Tender, Normal, Normal Inspection Respiratory: Chest Non-Tender, Lungs Clear, No Accessory Muscle Use, No Respi ratory Distress, Normal Breath Sounds Cardiovascular: No Edema, No JVD, No Murmur, No Gallop, Normal Peripheral Pulses, Regular Rate/Rhythm Breast Exam: Deferred Gastrointestinal: No Organomegaly, Non Tender, No Pulsatile Mass, Normal Bowel Sounds, Soft Genitalia: Deferred Pelvic: Deferred Rectal: Deferred Extremities: No calf tenderness, Normal capillary refill, Normal inspection, Normal range of motion, Non-tender, No pedal edema Musculoskeletal : Apperance: Normal Neurologic: Alert, network liaison II-XII nml as Tested, No Motor Deficits, Normal Affect, Normal Mood, No Sensory Deficits Cerebellar Function: Normal Reflexes: Normal Skin: Dry, Normal Color, Warm Peripheral Pulses: 3+ Radial (R), 3+ Radial (L) Lymphatic: No Adenopathy Was a procedure done? Was a procedure done?: No Differential Dx Considerations may include: Urosepsis Electrolyte imbalance X-Ray, Labs, Meds, VS Vital Signs Date Time Temp Pulse Resp B/P (MAP) Pulse Ox O2 Delivery O2 Flow Rate FiO2 12/21/24 13:39 78 16 134/83 (100) 97 12/21/24 11:52 98.4 72 18 95/65 (75) 97 98.4 Lab Test 12/21/24 15:46 Range/Units Urine Color Light-yellow Yellow Urine Clarity Turbid H Clear Urine pH 5.5 5.0-9.0 Urine Specific [place] 1.009 1.001-1.035 Urine Protein 1+ H Negative Urine Ketones Negative Negative Urine Blood 2+ H Negative /uL Urine Nitrite Negative Negative Urine Bilirubin Negative Negative Urine Urobilinogen Normal Negative mg/dL Urine Leukocyte Esterase 3+ Negative /uL Urine RBC 12 0 - 3 /hpf Urine Microscopic WBC 34 H 0-3 /HPF Urine Squamous Epithelial Cells Few <5 /hpf Urine Bacteria Few H None Seen /hpf Urine Hyaline Casts Few 0 - 2 /lpf Urine Mucus Few None Seen Urine Yeast (Budding) Occasional None Seen /hpf Urine Glucose Normal Normal mg/dL Patient alert. Has nephrostomy tube in place. Blood pressure low initially. Saturation pristine on room air. Urinalysis shows UTI. Urine culture. Establish intravenous access. Was given Rocephin. Possibly will need revision of his nephrostomy tube. Reviewed his previous visit. Explained to the patient. Patient does not want to stay. He states that he was here recently for urinary tract infection. Explained to him that he will need intravenous antibiotics. Continue monitoring. Time of 1ST Reevaluation: 14:00 Reevaluation 1ST: Unchanged Patient Education/Counseling: Diagnosis, Treatment, Prognosis Family Education/Counseling: No Family Present Departure 1 Departure Time of Disposition: 16:56 Impression: Primary Impression: Sepsis due to urinary tract infection Disposition: ADMITTED INPATIENT Admit to: Med Surg Condition: Guarded Critical Care Note Critical Care Time?: No Stability Stability form required: No Heart Score Heart Score: Heart Score Response (Comments) Value History N/A 0 EKG N/A 0 Age N/A 0 Risk Factors N/A 0 Troponin N/A 0 Total 0 I personally scribed for FARIBA GOTTLIEB MD ([email or web address]) on 12/21/24 at 14:01. Electronically submitted by Sherwin Le ([email or web address]). FARIBA GOTTLIEB MD Dec 21, 2024 14:01
[2024-12-21 16:19] LABS: Urine Bacteria FEW /hpf (None Seen); Urine Blood 2+ /uL (Negative); Urine Budding Yeast OCCASIONAL /hpf (None Seen); Urine Clarity Turbid (Clear); Urine Color Light-Yellow (Yellow); Urine Hyaline Cast FEW /lpf (0 - 2); Urine Mucus FEW (None Seen); Urine Protein, UAD 1+ (Negative); Urine Specific Gravity 1.009 (1.001-1.035); Urine Squamous Epithelial Cell FEW /hpf (<5); Urine Urobilinogen Normal (Negative); Urine WBC 34 /HPF (0-3); Urine pH 5.5 (5.0-9.0)
[2024-12-21 17:26] LABS: Basophils # (auto) 0.1 10 ^3/uL (0-0.2); Basophils % (auto) 0.7 % (0.0-2.0); Eosinophils # (auto) 0.4 10 ^3/uL (0-0.8); Eosinophils % (auto) 4.5 % (0.0-7.0); Hematocrit 39.2 % (41.0-53.0); Hemoglobin 12.9 g/dL (13.5-17.5); Lymphocytes % (auto) 21.2 % (10.0-50.0); Mean Corpuscular Hemoglobin 30.6 pg (28.0-32.0); Mean Corpuscular Hgb Conc. 32.8 g/dL (32.0-36.0); Mean Corpuscular Volume 93.1 fL (80.0-100.0); Monocytes # (auto) 0.8 10 ^3/uL (0-1.3); Monocytes % (auto) 8.8 % (0.0-12.0); Neutrophils # (auto) 6.2 10 ^3/uL (1.6-8.6); Neutrophils % (auto) 64.8 % (37.0-80.0); Nucleated Red Blood Cells % 0.1 %; Platelet Count (auto) 162 10^3/uL (140-450); Red Blood Cells 4.21 10^6/uL (4.5-5.90); Red Cell Distribution Width 16.6 % (11.8-14.3); White Blood Cell 9.5 10^3/uL (4.4-10.8)
[2024-12-21 17:38] LABS: Potassium 4.3 mmol/L (3.5-5.1); Sodium 143 mmol/L (136-145)
[2024-12-21 17:39] LABS: Anion Gap 9 (5-15); Calcium 10.1 mg/dL (8.7-10.4); Carbon Dioxide 23 mmol/L (20-31)
[2024-12-21 17:44] LABS: BUN/Creatinine Ratio 16.2 (10.0-20.0)
[2024-12-21 17:49] LABS: Blood Urea Nitrogen 28 mg/dL (9-23); Chloride 111 mmol/L (98-107); Glucose 127 mg/dL (74-106)
[2024-12-21] MEDS: SODIUM CHLORIDE 0.9% 1,000 ML IV ONE (17:50)
[2024-12-21] MEDS: cefTRIAXone 1GM/50ML D5W 50 ML IV ONE (18:00)
[2024-12-21 18:15] VITALS: PULSE 71; RESP 17; O2SAT 96
--- NOTE | 2024-12-21 18:55 | DVHHP2 ---
Admitting Diagnosis: Nephrostomy tube replacement History of Present Illness 74M presents to the ER w/ Hx of Kidney stones which may be associated to the c/c of a tube replacement. Pt reports on having a kidney infx 6 weeks ago and they placed a nephrostomy bag. Pt's home health care informed the pt that he needs to be tied until his scheduled Sx on Tuesday. PMHx of Gout, and HTN. Denies chills, fever, N/V/D, SOB, CP or no other associated symptoms, modifiers, recent injuries or sick contacts at this time. PAST MEDICAL HISTORY: Gout, HTN, Kidney Stones Surgical History: Denies all surgeries Surgical History (Other): Nephrostomy Bag Family History Family History: Reviewed,noncontributory to illness, Unknown Social History Smoker: Non-Smoker Alcohol: Unknown Drugs: Denies Drug Use Lives In: Home Patient Family History: Patient reports no known family medical history. Allergies: Coded Allergies: Levofloxacin (Verified Allergy, Unknown, 02/17/18) Home Meds Reported Medications Benazepril Hcl (Benazepril Hcl) 10 Mg Tab, 1 TAB PO DAILY, #30 TAB 5 Refills 02/17/18 Allopurinol (Allopurinol) 300 Mg Tab, 300 MG PO DAILY for 30 Days, MG 02/17/18 Furosemide (Furosemide) 20 Mg Tab, 20 MG PO DAILY for 30 Days, MG 02/17/18 Potassium Chloride (POTASSIUM CHLORIDE CR) 10 Meq Tb, 1 TAB PO DAILY, #30 TAB 5 Refills 02/17/18 Atenolol (Atenolol) 25 Mg Tab, 25 MG PO DAILY for 30 Days, MG 02/17/18 Vital Signs Vital Signs Date Time Temp Pulse Resp B/P (MAP) Pulse Ox O2 Delivery O2 Flow Rate FiO2 12/21/24 18:15 71 17 96 Room Air* 0 21 12/21/24 18:12 109/74 (86) 12/21/24 11:52 98.4 98.4 Physical Exam Generally-74 years old male, well nourished well developed. No apparent distress HEENT-atraumatic normocephalic Heart-regular rate and rhythm Lungs clear to auscultate Abdomen soft, nontender nondistended Musculoskeletal-no cyanosis. Positive left lower back nephrostomy went to intact. Draining urine yellow Neuro-AO x3, no focal deficits Results Labs Test 12/21/24 17:02 12/21/24 15:46 Range/Units White Blood Count 9.5 4.4-10.8 10^3/uL Red Blood Count 4.21 L 4.5-5.90 10^6/uL Hemoglobin 12.9 L 13.5-17.5 g/dL Hematocrit 39.2 L 41.0-53.0 % Mean Corpuscular Volume 93.1 80.0-100.0 fL Mean Corpuscular Hemoglobin 30.6 28.0-32.0 pg Mean Corpuscular Hemoglobin Concent 32.8 32.0-36.0 g/dL Red Cell Distribution Width 16.6 H 11.8-14.3 % Platelet Count 162 140-450 10^3/uL Mean Platelet Volume 9.9 6.9-10.8 fL Neutrophils (%) (Auto) 64.8 37.0-80.0 % Lymphocytes (%) (Auto) 21.2 10.0-50.0 % Monocytes (%) (Auto) 8.8 0.0-12.0 % Eosinophils (%) (Auto) 4.5 0.0-7.0 % Basophils (%) (Auto) 0.7 0.0-2.0 % Neutrophils # (Auto) 6.2 1.6-8.6 10 ^3/uL Lymphocytes # (Auto) 2.0 0.4-5.4 10 ^3/uL Monocytes # (Auto) 0.8 0-1.3 10 ^3/uL Eosinophils # (Auto) 0.4 0-0.8 10 ^3/uL Basophils # (Auto) 0.1 0-0.2 10 ^3/uL Nucleated Red Blood Cells 0.1 % Sodium Level 143 136-145 mmol/L Potassium Level 4.3 3.5-5.1 mmol/L Chloride Level 111 H 98-107 mmol/L Carbon Dioxide Level 23 20-31 mmol/L Anion Gap 9 5-15 Blood Urea Nitrogen 28 H 9-23 mg/dL Creatinine 1.73 H 0.700-1.30 mg/dL Glomerular Filtration Rate Calc 41 >90 mL/min BUN/Creatinine Ratio 16.2 10.0-20.0 Serum Glucose 127 H 74-106 mg/dL Calcium Level 10.1 8.7-10.4 mg/dL Urine Color Light-yellow Yellow Urine Clarity Turbid H Clear Urine pH 5.5 5.0-9.0 Urine Specific [place] 1.009 1.001-1.035 Urine Protein 1+ H Negative Urine Ketones Negative Negative Urine Blood 2+ H Negative /uL Urine Nitrite Negative Negative Urine Bilirubin Negative Negative Urine Urobilinogen Normal Negative mg/dL Urine Leukocyte Esterase 3+ Negative /uL Urine RBC 12 0 - 3 /hpf Urine Microscopic WBC 34 H 0-3 /HPF Urine Squamous Epithelial Cells Few <5 /hpf Urine Bacteria Few H None Seen /hpf Urine Hyaline Casts Few 0 - 2 /lpf Urine Mucus Few None Seen Urine Yeast (Budding) Occasional None Seen /hpf Urine Glucose Normal Normal mg/dL Primary Diagnosis She urinary tract infection Nephrostomy tube intact KOURTNEY on CKD Plan UA positive for urinary tract infection Ceftriaxone 1 g daily Check urine culture Check blood culture Check urine sodium, urine creatinine Ultrasound renal Consult nephrology Patel Renal diet Full code Heparin for DVT prophylaxis No GI prophylaxis needed Plan discussed with: Patient Problems List: (1) Acute kidney injury superimposed on CKD (2) Acute UTI Date of Service: Dec 21, 2024 Billing Provider: GRACE REESE MD Common Visit Codes: 70942-[id number] INP/OBS CARE (HIGH) GRACE REESE MD Dec 21, 2024 18:55
[2024-12-21] MEDS ORDERED: ONDANSETRON HCL 4 MG/2 ML VIAL IV PRN (19:00)
[2024-12-21] MEDS ORDERED: HYDROcodone-ACET 5/325MG TAB PO PRN (19:00)
[2024-12-21] MEDS ORDERED: DOCUSATE SOD 100 MG CAP PO PRN (19:00)
[2024-12-21 19:40] LABS: Creatinine, Urine 44.9 mg/dL (30.0-125.0)
--- NOTE | 2024-12-21 20:12 | DVH ---
EXAM: US KIDNEY INDICATION: kim on ckd TECHNIQUE: Multiple real-time sonographic images of the kidneys and bladder were obtained. COMPARISON: US KIDNEY on DOS: 11/11/24 Findings: Right kidney measures 8.8 cm with normal contours, increased echotexture, and decreased cortical thic kness. 10.3 x 9.0 x 0.9 cm anechoic lesion in the lower pole. No evidence of hydronephrosis, calculi, or solid lesions. Left kidney measures 11.1 cm with normal contours, increased echotexture, and normal cortical thickne ss. Nephrolithiasis. 6.4 x 4.2 x 5.9 cm anechoic lesion in the upper pole. No evidence of hydronephro sis or solid lesions. Percutaneous nephrostomy tube. Urinary bladder is unremarkable without evidence of abnormal wall thickening or mass. Prevoid volume 282 mL. Postvoid volume was not obtained. Prostate measures 6.6 x 5.5 x 5.6 cm. Impression: 1. Increased echogenicity of bilateral kidneys. Correlate for medical renal disease. 2. Bilateral renal cysts. 3. Left nephrolithiasis and percutaneous nephrostomy tube. 4. Multiple bladder calculi. 5. Enlarged prostate. Correlate with physical exam and PSA.
[2024-12-21 21:23] VITALS: BP 113/76; PULSE 73; RESP 16; TEMP 97.7; O2SAT 96
[2024-12-21 22:22] VITALS: BP 113/76; PULSE 73; RESP 16; TEMP 97.7; O2SAT 96
[2024-12-21] MEDS: SODIUM CHLOR 0.9% PF (SALINE LOCK) 10ML VIAL/SYR IV SCH (23:38)
[2024-12-22 05:00] VITALS: BP 114/69; PULSE 77; RESP 16; TEMP 97.9; O2SAT 95
[2024-12-22 07:41] LABS: Basophils # (auto) 0 10 ^3/uL (0-0.2); Basophils % (auto) 0.7 % (0.0-2.0); Eosinophils # (auto) 0.5 10 ^3/uL (0-0.8); Hematocrit 32.7 % (41.0-53.0); Hemoglobin 11.1 g/dL (13.5-17.5); Lymphocytes # (auto) 1.4 10 ^3/uL (0.4-5.4); Lymphocytes % (auto) 23.7 % (10.0-50.0); Mean Corpuscular Hemoglobin 31.5 pg (28.0-32.0); Mean Corpuscular Hgb Conc. 33.9 g/dL (32.0-36.0); Monocytes # (auto) 0.6 10 ^3/uL (0-1.3); Monocytes % (auto) 9.8 % (0.0-12.0); Neutrophils # (auto) 3.4 10 ^3/uL (1.6-8.6); Neutrophils % (auto) 57.8 % (37.0-80.0); Nucleated Red Blood Cells % 0.2 %; Platelet Count (auto) 105 10^3/uL (140-450); Red Blood Cells 3.51 10^6/uL (4.5-5.90); Red Cell Distribution Width 16.2 % (11.8-14.3); White Blood Cell 5.8 10^3/uL (4.4-10.8)
[2024-12-22 08:15] LABS: Alanine Aminotransferase 20 U/L (7-40); Albumin 3.8 g/dL (3.2-4.8); Alkaline Phosphatase 68 U/L (46-116); Anion Gap 6 (5-15); Aspartate Aminotransferase 21 U/L (13-40); Calcium 9.3 mg/dL (8.7-10.4); Carbon Dioxide 24 mmol/L (20-31); Glucose 83 mg/dL (74-106); Potassium 3.8 mmol/L (3.5-5.1); Sodium 141 mmol/L (136-145); Total Protein 6.9 g/dL (5.7-8.2)
[2024-12-22 08:17] LABS: Bilirubin, Total 0.5 mg/dL (0.2-1.0)
[2024-12-22 08:21] LABS: Blood Urea Nitrogen 25 mg/dL (9-23); Chloride 111 mmol/L (98-107)
[2024-12-22 08:57] VITALS: BP 125/82; PULSE 73; RESP 19; TEMP 97.9; O2SAT 97
--- NOTE | 2024-12-22 09:53 | DVHINCON2 ---
Date of service: Dec 22, [address] Meyer Reason for Consultation Acute kidney injury History of Present Illness Patient is 74-year-old male with past medical history significant for nephrolithiasis obstructive uropathy status post left nephrostomy and BPH is admitted for urinary tract infection and possible dislodgement of left nephrostomy tube. On admission patient found to have elevated BUN creatinine nephrology is consulted for acute kidney injury Past Medical History Nephrolithiasis Obstructive uropathy BPH Past Surgical History Left nephrostomy tube Allergies: Coded Allergies: Levofloxacin (Verified Allergy, Unknown, 02/17/18) Home Meds Reported Medications Benazepril Hcl (Benazepril Hcl) 10 Mg Tab, 1 TAB PO DAILY, #30 TAB 5 Refills 02/17/18 Allopurinol (Allopurinol) 300 Mg Tab, 300 MG PO DAILY for 30 Days, MG 02/17/18 Furosemide (Furosemide) 20 Mg Tab, 20 MG PO DAILY for 30 Days, MG 02/17/18 Potassium Chloride (POTASSIUM CHLORIDE CR) 10 Meq Tb, 1 TAB PO DAILY, #30 TAB 5 Refills 02/17/18 Atenolol (Atenolol) 25 Mg Tab, 25 MG PO DAILY for 30 Days, MG 02/17/18 Current Medications Current Medications Medications (Trade) Dose Ordered Sig/Akhil Route PRN Reason Start Time Stop Time Status Last Admin Sodium Chloride (Saline Lock Ns) 10 ml Q8HR IV 12/21/24 22:00 12/22/24 06:04 Docusate Sodium (Colace Capsule) 100 mg BIDPRN PRN PO FOR CONSTIPATION 12/21/24 19:00 Acetaminophen (Tylenol Tablet) 650 mg Q6HP PRN PO PAIN SCALE 1-3 OR TEMP>100.4 12/21/24 19:00 Acetaminophen/ Hydrocodone Bitart (Valentine 5/325MG Tab) 1 tab Q4HP PRN PO MODERATE PAIN (4-6 PAIN SCALE) 12/21/24 19:00 Ondansetron HCl (Zofran) 4 mg Q4HP PRN IV NAUSEA / VOMITING 12/21/24 19:00 Ceftriaxone Sodium 50 ml @ 100 mls/hr DAILY IV 12/22/24 10:00 12/22/24 11:26 Atenolol (Tenormin Tablet) 25 mg DAILY PO 12/22/24 10:00 12/22/24 10:12 Furosemide (Lasix Tablet) 20 mg DAILY PO 12/22/24 10:00 12/22/24 10:11 Allopurinol (Zyloprim Tablet) 300 mg DAILY PO 12/22/24 10:00 12/22/24 10:11 Family History: Patient reports no known family medical history. Review of Systems All 12 item review systems reviewed with the patient nonsignificant except what is mentioned in the history of present illness H&P Exam Vital Signs/I&O Vital Sign Date Time Temp Pulse Resp B/P (MAP) Pulse Ox O2 Delivery O2 Flow Rate FiO2 12/22/24 10:12 73 125/82 12/22/24 08:57 97.9 19 97 97.9 12/21/24 21:23 Room Air* 0 21 Intake and Output 12/21/24 12/22/24 19:00 07:00 Intake Total 1050 ml 400 ml Output Total 600 ml Balance 1050 ml -200 ml Intake Oral 400 ml IV Total 1050 ml Output Urine Total 600 ml # Voids 2 Physical Exam Patient is awake alert, at the bedside Lungs clear to auscultation bilaterally Cardiac exam regular rate and rhythm GI soft nontender is normal Left nephrostomy tube Extremities no clubbing cyanosis or edema Neuro nonfocal Labs/Diagnostic Data Labs/Diagnostic Data Laboratory Tests Test 12/22/24 05:44 12/21/24 17:02 12/21/24 15:46 Range/Units White Blood Count 5.8 # 9.5 4.4-10.8 10^3/uL Red Blood Count 3.51 L 4.21 L 4.5-5.90 10^6/uL Hemoglobin 11.1 L 12.9 L 13.5-17.5 g/dL Hematocrit 32.7 #L 39.2 L 41.0-53.0 % Mean Corpuscular Volume 93.0 93.1 80.0-100.0 fL Mean Corpuscular Hemoglobin 31.5 30.6 28.0-32.0 pg Mean Corpuscular Hemoglobin Concent 33.9 32.8 32.0-36.0 g/dL Red Cell Distribution Width 16.2 H 16.6 H 11.8-14.3 % Platelet Count 105 L 162 140-450 10^3/uL Mean Platelet Volume 9.9 9.9 6.9-10.8 fL Neutrophils (%) (Auto) 57.8 64.8 37.0-80.0 % Lymphocytes (%) (Auto) 23.7 21.2 10.0-50.0 % Monocytes (%) (Auto) 9.8 8.8 0.0-12.0 % Eosinophils (%) (Auto) 8.0 H 4.5 0.0-7.0 % Basophils (%) (Auto) 0.7 0.7 0.0-2.0 % Neutrophils # (Auto) 3.4 6.2 1.6-8.6 10 ^3/uL Lymphocytes # (Auto) 1.4 2.0 0.4-5.4 10 ^3/uL Monocytes # (Auto) 0.6 0.8 0-1.3 10 ^3/uL Eosinophils # (Auto) 0.5 0.4 0-0.8 10 ^3/uL Basophils # (Auto) 0 0.1 0-0.2 10 ^3/uL Nucleated Red Blood Cells 0.2 0.1 % Sodium Level 141 143 136-145 mmol/L Potassium Level 3.8 4.3 3.5-5.1 mmol/L Chloride Level 111 H 111 H 98-107 mmol/L Carbon Dioxide Level 24 23 20-31 mmol/L Anion Gap 6 9 5-15 Blood Urea Nitrogen 25 H 28 H 9-23 mg/dL Creatinine 1.47 H 1.73 H 0.700-1.30 mg/dL Glomerular Filtration Rate Calc 50 41 >90 mL/min BUN/Creatinine Ratio 17.0 16.2 10.0-20.0 Serum Glucose 83 127 H 74-106 mg/dL Calcium Level 9.3 10.1 8.7-10.4 mg/dL Total Bilirubin 0.5 0.2-1.0 mg/dL Aspartate Amino Transferase (AST) 21 13-40 U/L Alanine Aminotransferase (ALT) 20 7-40 U/L Alkaline Phosphatase 68 46-116 U/L Total Protein 6.9 5.7-8.2 g/dL Albumin 3.8 3.2-4.8 g/dL Urine Color Light-yellow Yellow Urine Clarity Turbid H Clear Urine pH 5.5 5.0-9.0 Urine Specific [employer] 1.009 1.001-1.035 Urine Protein 1+ H Negative Urine Ketones Negative Negative Urine Blood 2+ H Negative /uL Urine Nitrite Negative Negative Urine Bilirubin Negative Negative Urine Urobilinogen Normal Negative mg/dL Urine Leukocyte Esterase 3+ Negative /uL Urine RBC 12 0 - 3 /hpf Urine Microscopic WBC 34 H 0-3 /HPF Urine Squamous Epithelial Cells Few <5 /hpf Urine Bacteria Few H None Seen /hpf Urine Hyaline Casts Few 0 - 2 /lpf Urine Mucus Few None Seen Urine Yeast (Budding) Occasional None Seen /hpf Urine Creatinine 44.90 30.0-125.0 mg/dL Urine Sodium 109 40-220 mmol/L Urine Glucose Normal Normal mg/dL Assessment Acute kidney injury superimposed Chronic Kidney Disease secondary hemodynamic mediated Obstructive uropathy Left nephrostomy tube Nephrolithiasis BPH Urinary tract infection Recommendations Closely monitor fluid and electrolytes Avoid nephrotoxic medications Strict I&Os IV antibiotics IV fluid hydration Urology consult We will continue to follow Patient seen and examined by myself. I discussed my plan of care with the patient, his and the primary nurse at the bedside I would like to thank Dr. Meyer for the consult, will follow up Plan discussed with: Patient, Spouse SHAHRIAR KHAN MD Dec 22, 2024 09:53
[2024-12-22] MEDS: ALLOPURINOL 100 MG TAB PO SCH (10:11)
[2024-12-22] MEDS: FUROSEMIDE 20 MG TAB PO SCH (10:11)
[2024-12-22] MEDS: ATENOLOL 25 MG TAB PO SCH (10:12)
[2024-12-22] MEDS: cefTRIAXone 1GM/50ML D5W 50 ML IV SCH (11:26)
[2024-12-22 12:56] VITALS: BP 129/75; PULSE 68; RESP 19; TEMP 97.7; O2SAT 93
--- NOTE | 2024-12-22 14:43 | DVHPN2 ---
Subjective Patient denies any symptoms at this time. Reviewed: Care Plan, H&P, Labs, Medications Changes from previous H/P or p: No Changes General: Per HPI Objective Vitals Vital Signs Date Time Temp Pulse Resp B/P (MAP) Pulse Ox O2 Delivery O2 Flow Rate FiO2 12/22/24 12:56 97.7 68 19 129/75 (93) 93 97.7 12/22/24 08:00 Room Air* 0 21 Intake/Output Intake and Output 12/22/24 07:00 Intake Total 1450 ml Output Total 600 ml Balance 850 ml Intake Oral 400 ml IV Total 1050 ml Output Urine Total 600 ml # Voids 2 General Appearance: Alert, Oriented X3, Cooperative, No acute distress HEENT: Atraumatic, PERRLA Cardiovascular: Normal S1, Normal S2 Abdomen: Normal bowel sounds, Soft, No tenderness, No hepatospenomegaly Musculoskeletal: Normal sensory function, Normal motor function Skin: Dry, Intact Psych/Mental Status: Mental status NL, Mood NL Medications Current Medications Medications Dose Ordered Sig/Akhil Route Start Time Stop Time Status Last Admin Dose Admin Sodium Chloride 10 ml Q8HR IV 12/21/24 22:00 12/22/24 06:04 10 ML Docusate Sodium 100 mg BIDPRN PRN PO 12/21/24 19:00 Acetaminophen 650 mg Q6HP PRN PO 12/21/24 19:00 Acetaminophen/ Hydrocodone Bitart 1 tab Q4HP PRN PO 12/21/24 19:00 Ondansetron HCl 4 mg Q4HP PRN IV 12/21/24 19:00 Ceftriaxone Sodium 50 ml @ 100 mls/hr DAILY IV 12/22/24 10:00 12/22/24 11:26 100 MLS/HR Atenolol 25 mg DAILY PO 12/22/24 10:00 12/22/24 10:12 25 MG Furosemide 20 mg DAILY PO 12/22/24 10:00 12/22/24 10:11 20 MG Allopurinol 300 mg DAILY PO 12/22/24 10:00 12/22/24 10:11 300 MG Laboratory Results Laboratory Tests 12/22/24 05:44 Chemistry Test 12/21/24 17:02 12/22/24 05:44 Calcium Level 10.1 mg/dL (8.7-10.4) 9.3 mg/dL (8.7-10.4) Albumin 3.8 g/dL (3.2-4.8) Total Protein 6.9 g/dL (5.7-8.2) LFT Test 12/22/24 05:44 Alanine Aminotransferase (ALT) 20 U/L (7-40) Alkaline Phosphatase 68 U/L (46-116) Aspartate Amino Transferase (AST) 21 U/L (13-40) Total Bilirubin 0.5 mg/dL (0.2-1.0) Urinalysis Test 12/21/24 15:46 Urine Color Light-yellow (Yellow) Urine Clarity Turbid (Clear) H Urine pH 5.5 (5.0-9.0) Urine Specific [place] 1.009 (1.001-1.035) Urine Protein 1+ (Negative) H Urine Ketones Negative (Negative) Urine Blood 2+ /uL (Negative) H Urine Nitrite Negative (Negative) Urine Bilirubin Negative (Negative) Urine Urobilinogen Normal mg/dL (Negative) Urine Leukocyte Esterase 3+ /uL (Negative) Urine RBC 12 /hpf (0 - 3) Urine Microscopic WBC 34 /HPF (0-3) H Urine Squamous Epithelial Cells Few /hpf (<5) Urine Bacteria Few /hpf (None Seen) H Urine Hyaline Casts Few /lpf (0 - 2) Urine Mucus Few (None Seen) Urine Yeast (Budding) Occasional /hpf (None Urine Creatinine 44.90 mg/dL (30.0-125.0) Urine Sodium 109 mmol/L (40-220) Urine Glucose Normal mg/dL (Normal) Microbiology Microbiology Date/Time Source Procedure Growth Status 12/21/24 15:46 Voided Urine Urine Culture - Preliminary Resulted Labs and/or images reviewed: Labs reviewed by me, Image(s) reviewed by me Assessment/Plan Assessment/Plan Impression: -obstructive uropathy -? Displaced left nephrostomy tube -complicated cystitis -obesity -primary hypertension Plan: -long discussion made with the patient regarding plan of care including urology consultation for possible earlier lithotripsy. -urology consultation -preop diagnostic testing -blood cultures: Pending -continue antibiotic therapy -continue antihypertensives Total time spent with patient discussing and formulating plan of care: 35 minutes. This medical document was created using an electronic medical record system with [employer] system. Although this document has been carefully reviewed, there may still be some phonetic and typographical errors. These areas are purely typographical due to imperfections of the software programs, and do not reflect any compromise in the patient's medical care. Plan discussed with: Patient, Other (RN) My Orders Orders - SIERRA STALEY NP Procedure Category Date Status Time Ct Ab Pel Wo Con-No CT 12/22/24 Transmitted Oral Or Iv 14:17 * Urology Consult CONS 12/22/24 Transmitted 14:17 Date of Service: Dec 22, 2024 Billing Provider: SIERRA STALEY NP Common Visit Codes: [id number] INP/OBS CARE(HIGH) SIERRA STALEY NP Dec 22, 2024 14:43
--- NOTE | 2024-12-22 16:34 | DVH ---
CHEST RADIOGRAPH Indication: pre op Technique: Single frontal view of the chest was obtained Comparison: XY CHEST PORTABLE on DOS: 11/11/24 FINDINGS: Lines and Tubes: None Lungs: No focal consolidation. Pleura: No effusion. No pneumothorax. Cardiomediastinal contours: Unremarkable Bones: No acute osseous abnormality. IMPRESSION: 1. No acute cardiopulmonary disease. 2. No pleural effusion is noted on preop AP view of the chest. Can not exclude effusion in the vest tailor ior costophrenic angles. HS:Y
--- NOTE | 2024-12-22 16:47 | DVH ---
Exam: CT CT AB PEL WO CON-NO ORAL OR IV History: obstructive uropathy Comparison Study: None available at time of dictation. TECHNIQUE: Multidetector CT of the abdomen was performed from lung bases to pubic symphysis. Imaging was performed without IV contrast. Axial, coronal and sagittal multiplanar reformats were obtained fr om the axial data set by the technologist. Radiation Dose Information: CT Dose: CTDI volume is 18.43 mGy. Dose-length product is 970.0 mGy*cm FINDINGS: Evaluation of solid organs is limited due to lack of intravenous contrast use. Findings: Lung Bases: No acute or significant lung base finding. Normal heart size. No pleural or pericardial effusion. Liver: The liver is normal in size. No focal lesions. Gallbladder and Biliary Tree: 2 cm calcified gallstone. Spleen: Unremarkable Pancreas: The pancreas is grossly normal in appearance. Adrenal Glands: Unremarkable Kidneys: 4.8 cm right renal cortical cyst. 12.1 cm cortical cysts lower pole right kidney. 7-8 mm no nobstructing right renal calculus. 5-6 mm nonobstructing left renal calculus. . 5.7 cm left cortica l cyst. Left nephrostomy tube in place no significant hydronephrosis. 7 mm nonobstructing calculus lower pole left kidney Bladder: Multiple small calculi in the floor of the bladder. Bowel: The stomach is grossly normal in appearance. Small bowel and colon are normal in caliber and d istribution. The appendix is not visualized; however, no secondary findings of acute appendicitis id entified. Ascites: Absent Lymphadenopathy: No mesenteric, retroperitoneal or periportal lymphadenopathy. Abdominal Wall and Mesentery: 2.7 cm fat containing umbilical hernia. Vasculature: The visualized abdominal aorta is normal in size and caliber. Evaluation of abdominal a nd pelvic vessels is limited due to lack of intravenous contrast. Pelvic Organs: Prostate measures 7.3 x 5.5 cm correlate with PSA. Musculoskeletal: No aggressive focal bony lesions, acute fractures or dislocation. Soft tissues: Unremarkable IMPRESSION: 1. Bilateral renal cysts. 2. Bilateral renal calculi. 3. Left nephrostomy tube in place with minimal hydronephrosis. 4. Multiple small bladder calculi. 5. Prostate measures 7.3 x 5.5 cm. Radiation optimization: All CT scans at this facility use at least one of these dose optimization terese hniques: automated exposure control mA and/or kV adjustment per patient size (includes targeted exam s where dose is matched to clinical indication) or iterative reconstruction. HS:Y
[2024-12-22 17:05] VITALS: BP 108/75; PULSE 64; RESP 19; TEMP 97.9; O2SAT 96
[2024-12-22 20:00] VITALS: PULSE 71; RESP 18; O2SAT 96
[2024-12-22 21:00] VITALS: BP 99/63; PULSE 71; RESP 18; TEMP 97.6; O2SAT 96
[2024-12-23] VITALS (7 sets, daily range): BP systolic 99–116; BP diastolic 59–77; PULSE 61–82; RESP 16–18; TEMP 97.3–98.1; O2SAT 92–98
[2024-12-23 07:16] LABS: Alanine Aminotransferase 20 U/L (7-40); Albumin 4.1 g/dL (3.2-4.8); Alkaline Phosphatase 72 U/L (46-116); Anion Gap 6 (5-15); Aspartate Aminotransferase 18 U/L (13-40); BUN/Creatinine Ratio 14.1 (10.0-20.0); Bilirubin, Total 0.6 mg/dL (0.2-1.0); Blood Urea Nitrogen 20 mg/dL (9-23); Calcium 9.8 mg/dL (8.7-10.4); Carbon Dioxide 26 mmol/L (20-31); Chloride 108 mmol/L (98-107); Glucose 90 mg/dL (74-106); Potassium 4.2 mmol/L (3.5-5.1); Sodium 140 mmol/L (136-145); Total Protein 7.3 g/dL (5.7-8.2)
[2024-12-23 07:23] LABS: Basophils # (auto) 0 10 ^3/uL (0-0.2); Basophils % (auto) 0.6 % (0.0-2.0); Eosinophils # (auto) 0.4 10 ^3/uL (0-0.8); Eosinophils % (auto) 7.9 % (0.0-7.0); Hematocrit 35.3 % (41.0-53.0); Hemoglobin 11.6 g/dL (13.5-17.5); Lymphocytes # (auto) 1.2 10 ^3/uL (0.4-5.4); Lymphocytes % (auto) 22.6 % (10.0-50.0); Mean Corpuscular Hemoglobin 30.3 pg (28.0-32.0); Mean Corpuscular Hgb Conc. 32.7 g/dL (32.0-36.0); Mean Corpuscular Volume 92.7 fL (80.0-100.0); Monocytes # (auto) 0.5 10 ^3/uL (0-1.3); Neutrophils # (auto) 3.1 10 ^3/uL (1.6-8.6); Neutrophils % (auto) 58.9 % (37.0-80.0); Nucleated Red Blood Cells % 0.1 %; Platelet Count (auto) 114 10^3/uL (140-450); Red Blood Cells 3.81 10^6/uL (4.5-5.90); Red Cell Distribution Width 16.2 % (11.8-14.3); White Blood Cell 5.2 10^3/uL (4.4-10.8)
--- NOTE | 2024-12-23 11:47 | DVHPN2 ---
Subjective Patient reports having some difficulty with urination. Reviewed: Care Plan, H&P, Labs, Medications Changes from previous H/P or p: Changes General: Per HPI Objective Vitals Vital Signs Date Time Temp Pulse Resp B/P (MAP) Pulse Ox O2 Delivery O2 Flow Rate FiO2 12/23/24 09:00 98.1 82 18 110/77 (88) 96 98.1 12/23/24 08:00 Room Air* 0 21 Intake/Output Intake and Output 12/23/24 07:00 Intake Total 1630 ml Output Total 2400 ml Balance -770 ml Intake Oral 1580 ml IV Total 50 ml Output Urine Total 2400 ml # Bowel Movements 3 General Appearance: Alert, Oriented X3, Cooperative, No acute distress HEENT: Atraumatic, PERRLA Cardiovascular: Normal S1, Normal S2 Abdomen: Normal bowel sounds, Soft, No tenderness, No hepatospenomegaly Musculoskeletal: Normal sensory function, Normal motor function Skin: Dry, Intact Psych/Mental Status: Mental status NL, Mood NL Medications Current Medications Medications Dose Ordered Sig/Akhil Route Start Time Stop Time Status Last Admin Dose Admin Sodium Chloride 10 ml Q8HR IV 12/21/24 22:00 12/23/24 05:11 10 ML Docusate Sodium 100 mg BIDPRN PRN PO 12/21/24 19:00 Acetaminophen 650 mg Q6HP PRN PO 12/21/24 19:00 Acetaminophen/ Hydrocodone Bitart 1 tab Q4HP PRN PO 12/21/24 19:00 Ondansetron HCl 4 mg Q4HP PRN IV 12/21/24 19:00 Ceftriaxone Sodium 50 ml @ 100 mls/hr DAILY IV 12/22/24 10:00 12/23/24 08:17 100 MLS/HR Atenolol 25 mg DAILY PO 12/22/24 10:00 12/23/24 08:16 25 MG Furosemide 20 mg DAILY PO 12/22/24 10:00 12/23/24 08:17 20 MG Allopurinol 300 mg DAILY PO 12/22/24 10:00 12/23/24 08:14 300 MG Laboratory Results Laboratory Tests 12/23/24 06:22 Chemistry Test 12/23/24 06:22 Albumin 4.1 g/dL (3.2-4.8) Calcium Level 9.8 mg/dL (8.7-10.4) Total Protein 7.3 g/dL (5.7-8.2) LFT Test 12/23/24 06:22 Alanine Aminotransferase (ALT) 20 U/L (7-40) Alkaline Phosphatase 72 U/L (46-116) Aspartate Amino Transferase (AST) 18 U/L (13-40) Total Bilirubin 0.6 mg/dL (0.2-1.0) Urinalysis Test 12/21/24 15:46 Urine Color Light-yellow (Yellow) Urine Clarity Turbid (Clear) H Urine pH 5.5 (5.0-9.0) Urine Specific [place] 1.009 (1.001-1.035) Urine Protein 1+ (Negative) H Urine Ketones Negative (Negative) Urine Blood 2+ /uL (Negative) H Urine Nitrite Negative (Negative) Urine Bilirubin Negative (Negative) Urine Urobilinogen Normal mg/dL (Negative) Urine Leukocyte Esterase 3+ /uL (Negative) Urine RBC 12 /hpf (0 - 3) Urine Microscopic WBC 34 /HPF (0-3) H Urine Squamous Epithelial Cells Few /hpf (<5) Urine Bacteria Few /hpf (None Seen) H Urine Hyaline Casts Few /lpf (0 - 2) Urine Mucus Few (None Seen) Urine Yeast (Budding) Occasional /hpf (None Urine Creatinine 44.90 mg/dL (30.0-125.0) Urine Sodium 109 mmol/L (40-220) Urine Glucose Normal mg/dL (Normal) Microbiology Microbiology Date/Time Source Procedure Growth Status 12/22/24 03:56 Nose MRSA Screen - Final Complete 12/21/24 15:46 Voided Urine Urine Culture - Preliminary Resulted Labs and/or images reviewed: Labs reviewed by me, Image(s) reviewed by me Assessment/Plan Assessment/Plan Impression: -obstructive uropathy -? Displaced left nephrostomy tube -complicated cystitis -obesity -primary hypertension Plan: Events: CT scan results reviewed. Bilateral nephrolithiasis noted. Mild left hydronephrosis noted. Neph tube in appropriate position. Also noted bladder calculi. Findings discussed with the patient -urology consultation.: Pending -preop diagnostic testing -blood cultures: Pending -continue antibiotic therapy -continue antihypertensives -check PSA, PT PTT in a.m. -add Flomax Total time spent with patient discussing and formulating plan of care: 35 minutes. This medical document was created using an electronic medical record system with [employer] dictation system. Although this document has been carefully reviewed, there may still be some phonetic and typographical errors. These areas are purely typographical due to imperfections of the software programs, and do not reflect any compromise in the patient's medical care. Plan discussed with: Patient, Other (RN) My Orders Orders - SIERRA STALEY NP Procedure Category Date Status Time Ct Ab Pel Wo Con-No CT 12/22/24 Resulted Oral Or Iv 14:17 * Urology Consult CONS 12/22/24 Transmitted 14:17 Chest Xray 1 View XY 12/22/24 Resulted 14:40 PTPTT LAB 12/24/24 Verified 04:00 Basic Metabolic Panel LAB 12/24/24 Verified 04:00 Psa Total+% Free LAB 12/24/24 Verified 04:00 Tamsulosin PHA 12/23/24 Transmitted Hydrochloride (Flomax) 18:00 Date of Service: Dec 23, 2024 Billing Provider: SIERRA STALEY NP Common Visit Codes: [id number] INP/OBS CARE(HIGH) SIERRA STALEY NP Dec 23, 2024 11:47
--- NOTE | 2024-12-23 13:19 | DVHPN2 ---
Progress Note Date Seen: Dec 23, 2024 Medical Necessity Reason Pt with a Central, PICC or Fol: No Subjective Patient reports: No new complaints Other Systems: Patient seen and examined by myself today in follow-up Objective vital signs Vital Sign Date Time Temp Pulse Resp B/P (MAP) Pulse Ox O2 Delivery O2 Flow Rate FiO2 12/23/24 09:00 98.1 82 18 110/77 (88) 96 98.1 12/23/24 08:00 Room Air* 0 21 Total Intake and Output 12/22/24 12/22/24 12/23/24 15:00 23:00 07:00 Intake Total 50 ml 980 ml 600 ml Output Total 1200 ml 1200 ml Balance 50 ml -220 ml -600 ml medications Current Medications Medications Dose Ordered Sig/Akhil Route Start Time Stop Time Status Last Admin Dose Admin Sodium Chloride 10 ml Q8HR IV 12/21/24 22:00 12/23/24 05:11 10 ML Docusate Sodium 100 mg BIDPRN PRN PO 12/21/24 19:00 Acetaminophen 650 mg Q6HP PRN PO 12/21/24 19:00 Acetaminophen/ Hydrocodone Bitart 1 tab Q4HP PRN PO 12/21/24 19:00 Ondansetron HCl 4 mg Q4HP PRN IV 12/21/24 19:00 Ceftriaxone Sodium 50 ml @ 100 mls/hr DAILY IV 12/22/24 10:00 12/23/24 08:17 100 MLS/HR Atenolol 25 mg DAILY PO 12/22/24 10:00 12/23/24 08:16 25 MG Furosemide 20 mg DAILY PO 12/22/24 10:00 12/23/24 08:17 20 MG Allopurinol 300 mg DAILY PO 12/22/24 10:00 12/23/24 08:14 300 MG Tamsulosin HCl 0.4 mg QPM PO 12/23/24 18:00 Examination: LUNGS:Normal, CVS:Normal, MSK:Normal laboratory and microbiology Laboratory Tests 12/23/24 06:22 Test 12/23/24 06:22 Range/Units Serum Glucose 90 74-106 mg/dL Microbiology Date/Time Source Procedure Growth Status 12/22/24 03:56 Nose MRSA Screen - Final Complete 12/21/24 15:46 Voided Urine Urine Culture - Preliminary Resulted Problem List/Assessment/Plan Problem List/Assessment/Plan Acute kidney injury superimposed Chronic Kidney Disease secondary hemodynamic mediated Obstructive uropathy Left nephrostomy tube Nephrolithiasis BPH Urinary tract infection Enterococcus Recommendations Kidney function is improving Increased urine output Strict I&Os IV antibiotics IV fluid hydration I will sign off this case please refer to my office two weeks after discharge for Chronic Kidney Disease follow-up Thank you for the consult Plan discussed with: Patient SHAHRIAR KHAN MD Dec 23, 2024 13:19
[2024-12-23] MEDS: TAMSULOSIN HYDROCHLORIDE 0.4 MG CAP PO SCH (18:58)
[2024-12-24] VITALS (8 sets, daily range): BP systolic 93–122; BP diastolic 62–85; PULSE 56–78; RESP 12–18; TEMP 97.5–98; O2SAT 93–98
[2024-12-24 07:03] LABS: Basophils # (auto) 0 10 ^3/uL (0-0.2); Basophils % (auto) 0.6 % (0.0-2.0); Eosinophils # (auto) 0.4 10 ^3/uL (0-0.8); Eosinophils % (auto) 6.6 % (0.0-7.0); Hematocrit 34.7 % (41.0-53.0); Hemoglobin 11.9 g/dL (13.5-17.5); Lymphocytes # (auto) 1.1 10 ^3/uL (0.4-5.4); Lymphocytes % (auto) 20.9 % (10.0-50.0); Mean Corpuscular Hemoglobin 31.5 pg (28.0-32.0); Mean Corpuscular Hgb Conc. 34.2 g/dL (32.0-36.0); Monocytes # (auto) 0.5 10 ^3/uL (0-1.3); Monocytes % (auto) 8.4 % (0.0-12.0); Neutrophils # (auto) 3.5 10 ^3/uL (1.6-8.6); Neutrophils % (auto) 63.5 % (37.0-80.0); Nucleated Red Blood Cells % 0.1 %; Platelet Count (auto) 116 10^3/uL (140-450); Red Blood Cells 3.77 10^6/uL (4.5-5.90); Red Cell Distribution Width 16.3 % (11.8-14.3); White Blood Cell 5.5 10^3/uL (4.4-10.8)
[2024-12-24 07:11] LABS: INR 1.04 (0.9-1.15); Partial Thromboplastin Time 26.2 SEC (24.5-34.5)
[2024-12-24 07:24] LABS: Alanine Aminotransferase 18 U/L (7-40); Albumin 4.2 g/dL (3.2-4.8); Alkaline Phosphatase 73 U/L (46-116); Anion Gap 7 (5-15); BUN/Creatinine Ratio 14.4 (10.0-20.0); Blood Urea Nitrogen 19 mg/dL (9-23); Calcium 9.7 mg/dL (8.7-10.4); Carbon Dioxide 27 mmol/L (20-31); Chloride 105 mmol/L (98-107); Glucose 96 mg/dL (74-106); Potassium 3.7 mmol/L (3.5-5.1); Sodium 139 mmol/L (136-145); Total Protein 7.6 g/dL (5.7-8.2)
[2024-12-24 07:25] LABS: Aspartate Aminotransferase 16 U/L (13-40); Bilirubin, Total 0.5 mg/dL (0.2-1.0)
--- NOTE | 2024-12-24 10:03 | DVHINCON2 ---
Date of service: Dec 24, 2024 Referring Physician My RODRIGUEZ Reason for Consultation kidney stones PCN in situ UTI History of Present Illness History Source: Patient, RN Notes, MD Notes, Old Records Exam Limitations: No limitations HPI 74M presents to the ER w/ Hx of Kidney stones which may be associated to the c/c of a tube replacement. Pt reports on having a kidney infx 6 weeks ago and they placed a nephrostomy bag. Pt's home health care informed the pt that he needs to be tied until his scheduled Sx on Tuesday. PMHx of Gout, and HTN. Denies chills, fever, N/V/D, SOB, CP or no other associated symptoms, modifiers, recent injuries or sick contacts at this time. Home Meds Reported Medications Benazepril Hcl (Benazepril Hcl) 10 Mg Tab, 1 TAB PO DAILY, #30 TAB 5 Refills 02/17/18 Allopurinol (Allopurinol) 300 Mg Tab, 300 MG PO DAILY for 30 Days, MG 02/17/18 Furosemide (Furosemide) 20 Mg Tab, 20 MG PO DAILY for 30 Days, MG 02/17/18 Potassium Chloride (POTASSIUM CHLORIDE CR) 10 Meq Tb, 1 TAB PO DAILY, #30 TAB 5 Refills 02/17/18 Atenolol (Atenolol) 25 Mg Tab, 25 MG PO DAILY for 30 Days, MG 02/17/18 Past Medical History Patient Family History: Patient reports no known family medical history. Smoker: No Hx (Negative) Alocohol: None Drugs: None Domestic Violence: Neg Review of Systems Genitourinary: Pain H&P Exam Vital Signs Vital Signs Date Time Temp Pulse Resp B/P (MAP) Pulse Ox O2 Delivery O2 Flow Rate FiO2 12/24/24 09:27 82 124/80 12/24/24 08:36 97.5 18 96 97.5 12/24/24 08:00 Room Air* 0 21 Pulmonary/Respiratory: Normal inspection, Normal breath sounds, Chest non- tender, Lungs clear Cardiovascular/Chest: Normal inspection, Regular rate, Normal Rhythm Neuro/Mental St: Alert, Oriented Appearance: Appropriate appearance, Appropriate insight Eye contact/ Speech: Cooperative, Good eye contact, Normal speech Labs/Xrays [address] [address] Ph: [phone] DIAGNOSTIC IMAGING Diagnostic Imaging Report : [id number] Signed PATIENT: JUMANA JENNINGS ACCT: [id number] UNIT: [id number] : 1950 LOC: [facility] ROOM / BED: [facility] / B AGE / SEX: 74 / M ADM STATUS: ADM IN SERVICE 1417 ORDERING PHYSICIAN: SIERRA STALEY NP PROCEDURE(s): ABPL - CT AB PEL WO CON-NO ORAL OR IV REASON: obstructive uropathy ORDER NUMBER(s): [id number], ACCESSION NUMBER(s): [id number] Exam: CT CT AB PEL WO CON-NO ORAL OR IV History: obstructive uropathy Comparison Study: None available at time of dictation. TECHNIQUE: Multidetector CT of the abdomen was performed from lung bases to pubic symphysis. Imaging was performed without IV contrast. Axial, coronal and sagittal multiplanar reformats were obtained from the axial data set by the technologist. Radiation Dose Information: CT Dose: CTDI volume is 18.43 mGy. Dose-length product is 970.0 mGy*cm FINDINGS: Evaluation of solid organs is limited due to lack of intravenous contrast use. Findings: Lung Bases: No acute or significant lung base finding. Normal heart size. No pleural or pericardial effusion. Liver: The liver is normal in size. No focal lesions. Gallbladder and Biliary Tree: 2 cm calcified gallstone. Spleen: Unremarkable Pancreas: The pancreas is grossly normal in appearance. Adrenal Glands: Unremarkable Kidneys: 4.8 cm right renal cortical cyst. 12.1 cm cortical cysts lower pole right kidney. 7-8 mm nonobstructing right renal calculus. 5-6 mm nono bstructing left renal calculus. . 5.7 cm left cortical cyst. Left nephrostomy tube in place no significant hydronephrosis. 7 mm nonobstructing calculus lower pole left kidney Bladder: Multiple small calculi in the floor of the bladder. Bowel: The stomach is grossly normal in appearance. Small bowel and colon are normal in caliber and distribution. The appendix is not visualized; however, no secondary findings of acute appendicitis identified. Ascites: Absent Lymphadenopathy: No mesenteric, retroperitoneal or periportal lymphadenopathy. Abdominal Wall and Mesentery: 2.7 cm fat containing umbilical hernia. Vasculature: The visualized abdominal aorta is normal in size and caliber. Evaluation of abdominal and pelvic vessels is limited due to lack of intravenous contrast. Pelvic Organs: Prostate measures 7.3 x 5.5 cm correlate with PSA. Musculoskeletal: No aggressive focal bony lesions, acute fractures or dislocation. Soft tissues: Unremarkable IMPRESSION: 1. Bilateral renal cysts. 2. Bilateral renal calculi. 3. Left nephrostomy tube in place with minimal hydronephrosis. 4. Multiple small bladder calculi. 5. Prostate measures 7.3 x 5.5 cm. Radiation optimization: All CT scans at this facility use at least one of these dose optimization techniques: automated exposure control mA and/or kV adjustment per patient size (includes targeted exams where dose is matched to clinical indication) or iterative reconstruction. HS:Y ATED BY: DESTINY SHAFFER Jr., DO DICTATED DATE/TIME: 12/22/241644 SIGNED BY: DESTINY SHAFFER Jr., SIGNED DATE/TIME: 12/22/241644 CC: Labs Test 12/24/24 06:30 12/21/24 15:46 Range/Units White Blood Count 5.5 4.4-10.8 10^3/uL Red Blood Count 3.77 L 4.5-5.90 10^6/uL Hemoglobin 11.9 L 13.5-17.5 g/dL Hematocrit 34.7 L 41.0-53.0 % Mean Corpuscular Volume 92.0 80.0-100.0 fL Mean Corpuscular Hemoglobin 31.5 28.0-32.0 pg Mean Corpuscular Hemoglobin Concent 34.2 32.0-36.0 g/dL Red Cell Distribution Width 16.3 H 11.8-14.3 % Platelet Count 116 L 140-450 10^3/uL Mean Platelet Volume 9.6 6.9-10.8 fL Neutrophils (%) (Auto) 63.5 37.0-80.0 % Lymphocytes (%) (Auto) 20.9 10.0-50.0 % Monocytes (%) (Auto) 8.4 0.0-12.0 % Eosinophils (%) (Auto) 6.6 0.0-7.0 % Basophils (%) (Auto) 0.6 0.0-2.0 % Neutrophils # (Auto) 3.5 1.6-8.6 10 ^3/uL Lymphocytes # (Auto) 1.1 0.4-5.4 10 ^3/uL Monocytes # (Auto) 0.5 0-1.3 10 ^3/uL Eosinophils # (Auto) 0.4 0-0.8 10 ^3/uL Basophils # (Auto) 0 0-0.2 10 ^3/uL Nucleated Red Blood Cells 0.1 % Prothrombin Time 11.0 9.3-11.8 sec Prothrombin Time INR 1.04 0.9-1.15 Activated Partial Thromboplast Time 26.2 24.5-34.5 SEC Sodium Level 139 136-145 mmol/L Potassium Level 3.7 3.5-5.1 mmol/L Chloride Level 105 98-107 mmol/L Carbon Dioxide Level 27 20-31 mmol/L Anion Gap 7 5-15 Blood Urea Nitrogen 19 9-23 mg/dL Creatinine 1.32 H 0.700-1.30 mg/dL Glomerular Filtration Rate Calc 57 >90 mL/min BUN/Creatinine Ratio 14.4 10.0-20.0 Serum Glucose 96 74-106 mg/dL Calcium Level 9.7 8.7-10.4 mg/dL Total Bilirubin 0.5 0.2-1.0 mg/dL Aspartate Amino Transferase (AST) 16 13-40 U/L Alanine Aminotransferase (ALT) 18 7-40 U/L Alkaline Phosphatase 73 46-116 U/L Total Protein 7.6 5.7-8.2 g/dL Albumin 4.2 3.2-4.8 g/dL Urine Color Light-yellow Yellow Urine Clarity Turbid H Clear Urine pH 5.5 5.0-9.0 Urine Specific [place] 1.009 1.001-1.035 Urine Protein 1+ H Negative Urine Ketones Negative Negative Urine Blood 2+ H Negative /uL Urine Nitrite Negative Negative Urine Bilirubin Negative Negative Urine Urobilinogen Normal Negative mg/dL Urine Leukocyte Esterase 3+ Negative /uL Urine RBC 12 0 - 3 /hpf Urine Microscopic WBC 34 H 0-3 /HPF Urine Squamous Epithelial Cells Few <5 /hpf Urine Bacteria Few H None Seen /hpf Urine Hyaline Casts Few 0 - 2 /lpf Urine Mucus Few None Seen Urine Yeast (Budding) Occasional None Seen /hpf Urine Creatinine 44.90 30.0-125.0 mg/dL Urine Sodium 109 40-220 mmol/L Urine Glucose Normal Normal mg/dL Microbiology Date/Time Source Procedure Growth Status 12/22/24 15:00 Blood Blood Culture - Preliminary NO GROWTH AFTER 24 HOURS OF INCUBATION. Resulted 12/22/24 03:56 Nose MRSA Screen - Final Complete 12/21/24 15:46 Voided Urine Urine Culture - Preliminary Resulted Assessment/Plan Problem List: (1) Cyst of kidney, acquired (2) Calculus in bladder (3) Hydronephrosis, left (4) Foreign body in genitourinary tract, part unspecified, initial encounter (5) UTI (urinary tract infection) due to Enterococcus Plan treat UTI Lithotripsy TBA Plan discussed with: Patient, Other CT TAYLOR [employer] OFF[employer]ER Dec 24, 2024 10:03
[2024-12-24] MEDS: LIDOCAINE 2%HCL (LOCAL ANESTH.) INJ 20ML MDV ONE (11:47)
[2024-12-24] MEDS: MIDAZOLAM HCL 2MG/2ML 2ml VIAL (1mg/ml) ONE (11:47)
[2024-12-24] MEDS: fentaNYL CITRATE 100 MCG/2 ML VL ONE (11:47)
--- NOTE | 2024-12-24 14:02 | DVHPN2 ---
Subjective Patient reports having some difficulty with urination. Reviewed: Care Plan, H&P, Labs, Medications Changes from previous H/P or p: No Changes General: Per HPI Objective Vitals Vital Signs Date Time Temp Pulse Resp B/P (MAP) Pulse Ox O2 Delivery O2 Flow Rate FiO2 12/24/24 13:23 98.0 78 18 115/72 (86) 96 98.0 12/24/24 08:00 Room Air* 0 21 Intake/Output Intake and Output 12/24/24 07:00 Intake Total 1950 ml Output Total 1300 ml Balance 650 ml Intake Oral 1900 ml IV Total 50 ml Output Urine Total 1300 ml # Voids 5 # Bowel Movements 1 General Appearance: Alert, Oriented X3, Cooperative, No acute distress HEENT: Atraumatic, PERRLA Cardiovascular: Normal S1, Normal S2 Abdomen: Normal bowel sounds, Soft, No tenderness, No hepatospenomegaly Musculoskeletal: Normal sensory function, Normal motor function Skin: Dry, Intact Psych/Mental Status: Mental status NL, Mood NL Medications Current Medications Medications Dose Ordered Sig/Akhil Route Start Time Stop Time Status Last Admin Dose Admin Sodium Chloride 10 ml Q8HR IV 12/21/24 22:00 12/24/24 05:51 10 ML Docusate Sodium 100 mg BIDPRN PRN PO 12/21/24 19:00 Acetaminophen 650 mg Q6HP PRN PO 12/21/24 19:00 Acetaminophen/ Hydrocodone Bitart 1 tab Q4HP PRN PO 12/21/24 19:00 Ondansetron HCl 4 mg Q4HP PRN IV 12/21/24 19:00 Ceftriaxone Sodium 50 ml @ 100 mls/hr DAILY IV 12/22/24 10:00 12/24/24 09:25 100 MLS/HR Atenolol 25 mg DAILY PO 12/22/24 10:00 12/24/24 09:27 25 MG Furosemide 20 mg DAILY PO 12/22/24 10:00 12/24/24 09:26 20 MG Allopurinol 300 mg DAILY PO 12/22/24 10:00 12/24/24 09:26 300 MG Tamsulosin HCl 0.4 mg QPM PO 12/23/24 18:00 12/23/24 18:58 0.4 MG Laboratory Results Laboratory Tests 12/24/24 06:30 Chemistry Test 12/24/24 06:30 Albumin 4.2 g/dL (3.2-4.8) Calcium Level 9.7 mg/dL (8.7-10.4) Total Protein 7.6 g/dL (5.7-8.2) Coagulation Test 12/24/24 06:30 Prothrombin Time 11.0 sec (9.3-11.8) Prothrombin Time INR 1.04 (0.9-1.15) Activated Partial Thromboplast Time 26.2 SEC (24.5-34.5) LFT Test 12/24/24 06:30 Alanine Aminotransferase (ALT) 18 U/L (7-40) Alkaline Phosphatase 73 U/L (46-116) Aspartate Amino Transferase (AST) 16 U/L (13-40) Total Bilirubin 0.5 mg/dL (0.2-1.0) Urinalysis Test 12/21/24 15:46 Urine Color Light-yellow (Yellow) Urine Clarity Turbid (Clear) H Urine pH 5.5 (5.0-9.0) Urine Specific [place] 1.009 (1.001-1.035) Urine Protein 1+ (Negative) H Urine Ketones Negative (Negative) Urine Blood 2+ /uL (Negative) H Urine Nitrite Negative (Negative) Urine Bilirubin Negative (Negative) Urine Urobilinogen Normal mg/dL (Negative) Urine Leukocyte Esterase 3+ /uL (Negative) Urine RBC 12 /hpf (0 - 3) Urine Microscopic WBC 34 /HPF (0-3) H Urine Squamous Epithelial Cells Few /hpf (<5) Urine Bacteria Few /hpf (None Seen) H Urine Hyaline Casts Few /lpf (0 - 2) Urine Mucus Few (None Seen) Urine Yeast (Budding) Occasional /hpf (None Urine Creatinine 44.90 mg/dL (30.0-125.0) Urine Sodium 109 mmol/L (40-220) Urine Glucose Normal mg/dL (Normal) Microbiology Microbiology Date/Time Source Procedure Growth Status 12/22/24 15:00 Blood Blood Culture - Preliminary NO GROWTH AFTER 24 HOURS OF INCUBATION. Resulted 12/22/24 03:56 Nose MRSA Screen - Final Complete 12/21/24 15:46 Voided Urine Urine Culture - Preliminary Resulted Labs and/or images reviewed: Image(s) reviewed by me Assessment/Plan Assessment/Plan Impression: -obstructive uropathy -? Displaced left nephrostomy tube -complicated cystitis -obesity -primary hypertension Plan: Events: Status post nephrostomy tube exchange. Repeat urinalysis. Urine culture with Enterococcus, final results pending. -urology consultation: Recommendations reviewed -continue antibiotic therapy -continue antihypertensives -continue Flomax -repeat UA Total time spent with patient discussing and formulating plan of care: 35 minutes. This medical document was created using an electronic medical record system with [employer] dictation system. Although this document has been carefully reviewed, there may still be some phonetic and typographical errors. These areas are purely typographical due to imperfections of the software programs, and do not reflect any compromise in the patient's medical care. Plan discussed with: Patient, Spouse, Other (RN) My Orders Orders - SIERRA STALEY NP Procedure Category Date Status Time Percutaneous XY 12/24/24 Taken Nephrostomy 12:24 Date of Service: Dec 24, 2024 Billing Provider: SIERRA STALEY NP Common Visit Codes: [id number] INP/OBS CARE(HIGH) SIERRA STALEY NP Dec 24, 2024 14:02
--- NOTE | 2024-12-24 14:36 | DVH ---
XY PERCUTANEOUS NEPHROSTOMY, HISTORY: NEPH DRAIN PL PROCEDURE: Informed consent was obtained. The patient was placed on the fluoroscopic table in a prone position and IV sedation administered. The left flank was prepped with chlorhexidine which was allow ed to dry and draped in the usual sterile fashion. Time out was performed and the soft tissues infilt rated with 1% lidocaine local anesthetic. An antegrade nephrostogram was performed to confirm positio n of the previous nephrostomy tube. The tube was cut and a stiff glidewire was inserted through the n ephrostomy tube into the ureter. The prior nephrostomy tube was removed, and a new 8.5 Fr multipurpos e drainage catheter was advanced into the renal pelvis over a wire. Completion antegrade nephrostogra m demonstrates appropriate position of the new nephrostomy tube in the renal pelvis. The catheter was secured in place and connected to gravity drainage. A sterile dressing was applied. No immediate com plication was identified. DAP 545 FLUOROSCOPY TIME: 1.8 minutes. CONTRAST USED: 10 mL Isovue 300. SEDATION: Dr. Rufus Georges was personally responsible for the administration of moderate sedation during the procedure performed, including the use of an independent trained observer who had no other duties during the procedure. The drugs utilized were IV fentanyl and versed (see nursing log for details). The total time of supervision by the attending physician was approximately 30 minutes. FINDINGS: Nephrostomy tube within pigtail coiled in the left renal pelvis. IMPRESSION: Successful exchange of a left sided nephrostomy tube, with placement of a new 8.5 Fr multipurpose kwabena inage catheter in the left sided renal pelvis. PLAN: Routine catheter care.
[2024-12-24 16:41] LABS: Urine Bacteria FEW /hpf (None Seen); Urine Blood 3+ /uL (Negative); Urine Clarity Clear (Clear); Urine Color Colorless (Yellow); Urine Hyaline Cast FEW /lpf (0 - 2); Urine Mucus FEW (None Seen); Urine Protein, UAD 1+ (Negative); Urine Squamous Epithelial Cell FEW /hpf (<5); Urine Urobilinogen Normal (Negative); Urine WBC 17 /HPF (0-3)
[2024-12-24] MEDS: DAPTOmycin 500 MG in SODIUM CHL 0.9% 50 ML IV SCH (17:34)
[2024-12-25] VITALS (7 sets, daily range): BP systolic 102–133; BP diastolic 60–72; PULSE 64–87; RESP 17–18; TEMP 97.4–98.5; O2SAT 94–100
[2024-12-25 08:07] LABS: PSA Free 1.95 ng/mL; Prostate Specific Antigen 8.9 ng/mL (0.0-4.0)
--- NOTE | 2024-12-25 08:37 | DVHPN2 ---
Subjective Patient reports having some difficulty with urination. Reviewed: Care Plan, H&P, Labs, Medications Changes from previous H/P or p: No Changes General: Per HPI Objective Vitals Vital Signs Date Time Temp Pulse Resp B/P (MAP) Pulse Ox O2 Delivery O2 Flow Rate FiO2 12/25/24 05:00 97.5 84 17 102/68 (79) 96 97.5 12/24/24 20:00 Room Air* 0 21 Intake/Output Intake and Output 12/25/24 07:00 Intake Total 2080 ml Output Total 900 ml Balance 1180 ml Intake Oral 2080 ml Output Urine Total 500 ml Other 400 ml # Voids 5 # Bowel Movements 2 General Appearance: Alert, Oriented X3, Cooperative, No acute distress HEENT: Atraumatic, PERRLA Cardiovascular: Normal S1, Normal S2 Abdomen: Normal bowel sounds, Soft, No tenderness, No hepatospenomegaly Musculoskeletal: Normal sensory function, Normal motor function Skin: Dry, Intact Psych/Mental Status: Mental status NL, Mood NL Medications Current Medications Medications Dose Ordered Sig/Akhil Route Start Time Stop Time Status Last Admin Dose Admin Sodium Chloride 10 ml Q8HR IV 12/21/24 22:00 12/25/24 06:23 10 ML Docusate Sodium 100 mg BIDPRN PRN PO 12/21/24 19:00 Acetaminophen 650 mg Q6HP PRN PO 12/21/24 19:00 Acetaminophen/ Hydrocodone Bitart 1 tab Q4HP PRN PO 12/21/24 19:00 Ondansetron HCl 4 mg Q4HP PRN IV 12/21/24 19:00 Atenolol 25 mg DAILY PO 12/22/24 10:00 12/24/24 09:27 25 MG Furosemide 20 mg DAILY PO 12/22/24 10:00 12/24/24 09:26 20 MG Allopurinol 300 mg DAILY PO 12/22/24 10:00 12/24/24 09:26 300 MG Tamsulosin HCl 0.4 mg QPM PO 12/23/24 18:00 12/24/24 17:34 0.4 MG Daptomycin 500 mg/ Sodium Chloride 50 ml @ 100 mls/hr DAILY IV 12/24/24 17:00 12/24/24 17:34 100 MLS/HR Laboratory Results Laboratory Tests 12/24/24 06:30 Urinalysis Test 12/21/24 15:46 12/24/24 15:15 Urine Yeast (Budding) Occasional /hpf (None Urine Creatinine 44.90 mg/dL (30.0-125.0) Urine Sodium 109 mmol/L (40-220) Urine Color Colorless (Yellow) Urine Clarity Clear (Clear) Urine pH 6.0 (5.0-9.0) Urine Specific [place] 1.020 (1.001-1.035) Urine Protein 1+ (Negative) H Urine Ketones Negative (Negative) Urine Blood 3+ /uL (Negative) H Urine Nitrite Negative (Negative) Urine Bilirubin Negative (Negative) Urine Urobilinogen Normal mg/dL (Negative) Urine Leukocyte Esterase 2+ /uL (Negative) Urine RBC 101 /hpf (0 - 3) Urine Microscopic WBC 17 /HPF (0-3) H Urine Squamous Epithelial Cells Few /hpf (<5) Urine Bacteria Few /hpf (None Seen) H Urine Hyaline Casts Few /lpf (0 - 2) Urine Mucus Few (None Seen) Urine Glucose Normal mg/dL (Normal) Microbiology Microbiology Date/Time Source Procedure Growth Status 12/22/24 15:00 Blood Blood Culture - Preliminary NO GROWTH AFTER 48 HOURS OF INCUBATION. Resulted 12/22/24 03:56 Nose MRSA Screen - Final Complete 12/21/24 15:46 Voided Urine Urine Culture - Final Enterococcus faecium - VRE Complete Labs and/or images reviewed: Labs reviewed by me, Image(s) reviewed by me Assessment/Plan Assessment/Plan Impression: -obstructive uropathy -? Displaced left nephrostomy tube -complicated cystitis, VRE -obesity -primary hypertension Plan: Events: Patient urine culture positive for VRE, also resistant to Zyvox. Patient was placed on daptomycin. Infectious Disease consultation is currently pending. Repeat urine culture/urinalysis pending. -urology consultation: Recommendations reviewed -continue antibiotic therapy -continue antihypertensives -continue Flomax -repeat labs in a.m. Total time spent with patient discussing and formulating plan of care: 35 minutes. This medical document was created using an electronic medical record system with [employer] system. Although this document has been carefully reviewed, there may still be some phonetic and typographical errors. These areas are purely typographical due to imperfections of the software programs, and do not reflect any compromise in the patient's medical care. Plan discussed with: Patient, Other (RN) My Orders Orders - SIERRA STALEY NP Procedure Category Date Status Time Percutaneous XY 12/24/24 Resulted Nephrostomy 12:24 Urinalysis LAB 12/24/24 Uncollected 14:57 * Infectious [place]- CONS 12/24/24 Transmitted Giorgi Russell 14:59 Daptomycin (Cubicin) PHA 12/24/24 In Process 17:00 Date of Service: Dec 25, 2024 Billing Provider: SIERRA STALEY NP Common Visit Codes: [id number] INP/OBS CARE(HIGH) SIERRA STALEY NP Dec 25, 2024 08:37
[2024-12-25 12:49] LABS: Urine Bacteria FEW /hpf (None Seen); Urine Blood 1+ /uL (Negative); Urine Clarity Clear (Clear); Urine Color Light-Yellow (Yellow); Urine Mucus FEW (None Seen); Urine Protein, UAD Negative (Negative); Urine Specific Gravity 1.008 (1.001-1.035); Urine Squamous Epithelial Cell None Seen /hpf (<5); Urine Urobilinogen Normal (Negative); Urine WBC 5 /HPF (0-3); Urine pH 5.5 (5.0-9.0)
[2024-12-26] VITALS (8 sets, daily range): BP systolic 111–127; BP diastolic 70–77; PULSE 67–86; RESP 18–20; TEMP 97.6–98.4; O2SAT 94–96
[2024-12-26 05:28] LABS: Basophils # (auto) 0 10 ^3/uL (0-0.2); Basophils % (auto) 0.7 % (0.0-2.0); Eosinophils # (auto) 0.5 10 ^3/uL (0-0.8); Eosinophils % (auto) 7.2 % (0.0-7.0); Hematocrit 34.5 % (41.0-53.0); Hemoglobin 11.3 g/dL (13.5-17.5); Lymphocytes # (auto) 1.4 10 ^3/uL (0.4-5.4); Lymphocytes % (auto) 22.4 % (10.0-50.0); Mean Corpuscular Hemoglobin 30.5 pg (28.0-32.0); Mean Corpuscular Hgb Conc. 32.9 g/dL (32.0-36.0); Mean Corpuscular Volume 92.6 fL (80.0-100.0); Monocytes # (auto) 0.6 10 ^3/uL (0-1.3); Monocytes % (auto) 9.6 % (0.0-12.0); Neutrophils # (auto) 3.8 10 ^3/uL (1.6-8.6); Neutrophils % (auto) 60.1 % (37.0-80.0); Nucleated Red Blood Cells % 0.1 %; Platelet Count (auto) 119 10^3/uL (140-450); Red Blood Cells 3.72 10^6/uL (4.5-5.90); Red Cell Distribution Width 16.2 % (11.8-14.3); White Blood Cell 6.3 10^3/uL (4.4-10.8)
[2024-12-26 05:40] LABS: Alanine Aminotransferase 18 U/L (7-40); Albumin 4.1 g/dL (3.2-4.8); Alkaline Phosphatase 72 U/L (46-116); Anion Gap 8 (5-15); Aspartate Aminotransferase 18 U/L (13-40); Bilirubin, Total 0.5 mg/dL (0.2-1.0); Blood Urea Nitrogen 21 mg/dL (9-23); Calcium 9.7 mg/dL (8.7-10.4); Carbon Dioxide 26 mmol/L (20-31); Chloride 107 mmol/L (98-107); Glucose 100 mg/dL (74-106); Sodium 141 mmol/L (136-145); Total Protein 7.2 g/dL (5.7-8.2)
[2024-12-26 05:41] LABS: Potassium 3.4 mmol/L (3.5-5.1)
[2024-12-26] MEDS: POTASSIUM EFFERVESENT TAB 25 MEQ PO ONE (10:27)
--- NOTE | 2024-12-26 11:52 | DVHPN2 ---
Subjective Denies any symptoms Reviewed: Care Plan, H&P, Labs, Medications Changes from previous H/P or p: Changes General: Per HPI Objective Vitals Vital Signs Date Time Temp Pulse Resp B/P (MAP) Pulse Ox O2 Delivery O2 Flow Rate FiO2 12/26/24 10:29 77 114/70 12/26/24 08:30 97.7 18 94 97.7 12/26/24 08:00 Room Air* 0 21 Intake/Output Intake and Output 12/26/24 07:00 Intake Total 2440 ml Balance 2440 ml Intake Oral 2440 ml # Voids 14 # Bowel Movements 2 General Appearance: Alert, Oriented X3, Cooperative, No acute distress HEENT: Atraumatic, PERRLA Cardiovascular: Normal S1, Normal S2 Abdomen: Normal bowel sounds, Soft, No tenderness, No hepatospenomegaly Musculoskeletal: Normal sensory function, Normal motor function Skin: Dry, Intact Psych/Mental Status: Mental status NL, Mood NL Medications Current Medications Medications Dose Ordered Sig/Akhil Route Start Time Stop Time Status Last Admin Dose Admin Sodium Chloride 10 ml Q8HR IV 12/21/24 22:00 12/26/24 05:07 10 ML Docusate Sodium 100 mg BIDPRN PRN PO 12/21/24 19:00 Acetaminophen 650 mg Q6HP PRN PO 12/21/24 19:00 Acetaminophen/ Hydrocodone Bitart 1 tab Q4HP PRN PO 12/21/24 19:00 Ondansetron HCl 4 mg Q4HP PRN IV 12/21/24 19:00 Atenolol 25 mg DAILY PO 12/22/24 10:00 12/26/24 10:29 25 MG Furosemide 20 mg DAILY PO 12/22/24 10:00 12/26/24 10:28 20 MG Allopurinol 300 mg DAILY PO 12/22/24 10:00 12/26/24 10:28 300 MG Tamsulosin HCl 0.4 mg QPM PO 12/23/24 18:00 12/25/24 17:41 0.4 MG Daptomycin 500 mg/ Sodium Chloride 50 ml @ 100 mls/hr DAILY IV 12/24/24 17:00 12/26/24 10:27 100 MLS/HR Laboratory Results Laboratory Tests 12/26/24 04:57 Chemistry Test 12/26/24 04:57 Albumin 4.1 g/dL (3.2-4.8) Calcium Level 9.7 mg/dL (8.7-10.4) Total Protein 7.2 g/dL (5.7-8.2) LFT Test 12/26/24 04:57 Alanine Aminotransferase (ALT) 18 U/L (7-40) Alkaline Phosphatase 72 U/L (46-116) Aspartate Amino Transferase (AST) 18 U/L (13-40) Total Bilirubin 0.5 mg/dL (0.2-1.0) Urinalysis Test 12/21/24 15:46 12/24/24 15:15 12/25/24 12:40 Urine Yeast (Budding) Occasional /hpf (None Urine Creatinine 44.90 mg/dL (30.0-125.0) Urine Sodium 109 mmol/L (40-220) Urine Hyaline Casts Few /lpf (0 - 2) Urine Color Light-yellow (Yellow) Urine Clarity Clear (Clear) Urine pH 5.5 (5.0-9.0) Urine Specific [place] 1.008 (1.001-1.035) Urine Protein Negative (Negative) Urine Ketones Negative (Negative) Urine Blood 1+ /uL (Negative) H Urine Nitrite Negative (Negative) Urine Bilirubin Negative (Negative) Urine Urobilinogen Normal mg/dL (Negative) Urine Leukocyte Esterase Trace /uL (Negative) Urine RBC 1 /hpf (0 - 3) Urine Microscopic WBC 5 /HPF (0-3) H Urine Squamous Epithelial Cells None seen /hpf (<5) Urine Bacteria Few /hpf (None Seen) H Urine Mucus Few (None Seen) Urine Glucose Normal mg/dL (Normal) Microbiology Microbiology Date/Time Source Procedure Growth Status 12/22/24 15:00 Blood Blood Culture - Preliminary NO GROWTH AFTER 72 HOURS OF INCUBATION. Resulted 12/22/24 03:56 Nose MRSA Screen - Final Complete 12/21/24 15:46 Voided Urine Urine Culture - Final Enterococcus faecium - VRE Complete Labs and/or images reviewed: Labs reviewed by me, Image(s) reviewed by me Assessment/Plan Assessment/Plan Impression: -obstructive uropathy -? Displaced left nephrostomy tube -complicated cystitis, VRE -obesity -primary hypertension -thrombocytopenia Plan: Events: Pending ID consultation. No events overnight. Potassium 3.4, repleted. Noted thrombocytopenia, we will continue to monitor -urology consultation: Recommendations reviewed -continue antibiotic therapy -continue antihypertensives -continue Flomax -repeat labs in a.m. Total time spent with patient discussing and formulating plan of care: 35 minutes. This medical document was created using an electronic medical record system with [employer] dictation system. Although this document has been carefully reviewed, there may still be some phonetic and typographical errors. These areas are purely typographical due to imperfections of the software programs, and do not reflect any compromise in the patient's medical care. Plan discussed with: Patient, Other (RN) Date of Service: Dec 26, 2024 Billing Provider: SIERRA STALEY NP Common Visit Codes: [id number] INP/OBS CARE(HIGH) SIERRA STALEY NP Dec 26, 2024 11:52
[2024-12-27 05:00] VITALS: BP 117/79; PULSE 68; RESP 18; TEMP 97.7; O2SAT 94
[2024-12-27 08:00] VITALS: BP 115/76; PULSE 74; RESP 16; TEMP 98.2; O2SAT 96
--- NOTE | 2024-12-27 09:31 | DVHPN2 ---
Subjective Denies any symptoms Reviewed: Care Plan, H&P, Labs, Medications Changes from previous H/P or p: No Changes General: Per HPI Objective Vitals Vital Signs Date Time Temp Pulse Resp B/P (MAP) Pulse Ox O2 Delivery O2 Flow Rate FiO2 12/27/24 08:00 98.2 74 16 115/76 (89) 96 98.2 12/27/24 08:00 Room Air* 0 21 Intake/Output Intake and Output 12/27/24 07:00 Intake Total 2260 ml Output Total 1700 ml Balance 560 ml Intake Oral 2260 ml Output Urine Total 1700 ml # Bowel Movements 3 General Appearance: Alert, Oriented X3, Cooperative, No acute distress HEENT: Atraumatic, PERRLA Cardiovascular: Normal S1, Normal S2 Abdomen: Normal bowel sounds, Soft, No tenderness, No hepatospenomegaly Musculoskeletal: Normal sensory function, Normal motor function Skin: Dry, Intact Psych/Mental Status: Mental status NL, Mood NL Medications Current Medications Medications Dose Ordered Sig/Akhil Route Start Time Stop Time Status Last Admin Dose Admin Sodium Chloride 10 ml Q8HR IV 12/21/24 22:00 12/27/24 05:20 10 ML Docusate Sodium 100 mg BIDPRN PRN PO 12/21/24 19:00 Acetaminophen 650 mg Q6HP PRN PO 12/21/24 19:00 Acetaminophen/ Hydrocodone Bitart 1 tab Q4HP PRN PO 12/21/24 19:00 Ondansetron HCl 4 mg Q4HP PRN IV 12/21/24 19:00 Atenolol 25 mg DAILY PO 12/22/24 10:00 12/26/24 10:29 25 MG Furosemide 20 mg DAILY PO 12/22/24 10:00 12/26/24 10:28 20 MG Allopurinol 300 mg DAILY PO 12/22/24 10:00 12/26/24 10:28 300 MG Tamsulosin HCl 0.4 mg QPM PO 12/23/24 18:00 12/26/24 17:55 0.4 MG Daptomycin 500 mg/ Sodium Chloride 50 ml @ 100 mls/hr DAILY IV 12/24/24 17:00 12/26/24 10:27 100 MLS/HR Laboratory Results Laboratory Tests 12/26/24 04:57 Urinalysis Test 12/21/24 15:46 12/24/24 15:15 4/15/25 12:40 Urine Yeast (Budding) Occasional /hpf (None Urine Creatinine 44.90 mg/dL (30.0-125.0) Urine Sodium 109 mmol/L (40-220) Urine Hyaline Casts Few /lpf (0 - 2) Urine Color Light-yellow (Yellow) Urine Clarity Clear (Clear) Urine pH 5.5 (5.0-9.0) Urine Specific [place] 1.008 (1.001-1.035) Urine Protein Negative (Negative) Urine Ketones Negative (Negative) Urine Blood 1+ /uL (Negative) H Urine Nitrite Negative (Negative) Urine Bilirubin Negative (Negative) Urine Urobilinogen Normal mg/dL (Negative) Urine Leukocyte Esterase Trace /uL (Negative) Urine RBC 1 /hpf (0 - 3) Urine Microscopic WBC 5 /HPF (0-3) H Urine Squamous Epithelial Cells None seen /hpf (<5) Urine Bacteria Few /hpf (None Seen) H Urine Mucus Few (None Seen) Urine Glucose Normal mg/dL (Normal) Microbiology Microbiology Date/Time Source Procedure Growth Status 12/25/24 12:40 Urine - Midstream Clean Catch Urine Culture - Preliminary Resulted 12/22/24 15:00 Blood Blood Culture - Preliminary NO GROWTH AFTER 72 HOURS OF INCUBATION. Resulted 12/22/24 03:56 Nose MRSA Screen - Final Complete Labs and/or images reviewed: Labs reviewed by me, Image(s) reviewed by me Assessment/Plan Assessment/Plan Impression: -obstructive uropathy -? Displaced left nephrostomy tube -complicated cystitis, VRE -obesity -primary hypertension -thrombocytopenia Plan: Events: Pending ID consultation. Repeat urine negative growth. NPO. ESWL today. IVF with K replacement -urology consultation: Recommendations reviewed -continue antibiotic therapy -continue antihypertensives -continue Flomax -repeat labs in a.m. Total time spent with patient discussing and formulating plan of care: 35 minutes. This medical document was created using an electronic medical record system with [employer] system. Although this document has been carefully reviewed, there may still be some phonetic and typographical errors. These areas are purely typographical due to imperfections of the software programs, and do not reflect any compromise in the patient's medical care. Plan discussed with: Patient, Other (RN) My Orders Orders - SIERRA STALEY SUPERVISOR DECORATING Procedure Category Date Status Time Basic Metabolic Panel LAB 12/27/24 Logged 09:27 Magnesium LAB 12/27/24 Logged 09:28 Sod Chl 0.45% With PHA 12/27/24 Logged 20meq Kcl 09:30 Date of Service: Dec 27, 2024 Billing Provider: SIERRA STALEY NP Common Visit Codes: [id number] INP/OBS CARE(HIGH) SIERRA STALEY NP Dec 27, 2024 09:31
[2024-12-27 10:12] LABS: Anion Gap 8 (5-15); Carbon Dioxide 27 mmol/L (20-31); Potassium 3.5 mmol/L (3.5-5.1); Sodium 142 mmol/L (136-145)
[2024-12-27 10:13] LABS: Calcium 9.9 mg/dL (8.7-10.4)
[2024-12-27 10:14] LABS: Chloride 107 mmol/L (98-107)
[2024-12-27 10:18] LABS: BUN/Creatinine Ratio 14.3 (10.0-20.0); Blood Urea Nitrogen 19 mg/dL (9-23); Glucose 97 mg/dL (74-106)
[2024-12-27] MEDS ORDERED: CIPROFLOXACIN 400MG/200ML 200 ML IV ONE (11:50)
[2024-12-27] MEDS ORDERED: DexAMETHasone SOD PHOS 10MG/1ML VIAL INJ ONE (12:36)
[2024-12-27] MEDS ORDERED: fentaNYL CITRATE 5 ML ONE (12:36)
[2024-12-27] MEDS ORDERED: ONDANSETRON HCL 4 MG/2 ML VIAL ONE (12:36)
[2024-12-27] MEDS ORDERED: LIDOCAINE 2% (LOCAL ANESTH.) PF 5ml SDV ONE (12:36)
[2024-12-27] MEDS ORDERED: PROPOFOL 10 MG/ML 20 ML IV ONE (12:36)
--- NOTE | 2024-12-27 12:40 | DVHINCON2 ---
Date of service: Dec 24, 2024 Family History: Patient reports no known family medical history. Allergies: Coded Allergies: Levofloxacin (Verified Allergy, Unknown, 02/17/18) Home Meds Reported Medications Benazepril Hcl (Benazepril Hcl) 10 Mg Tab, 1 TAB PO DAILY, #30 TAB 5 Refills 02/17/18 Allopurinol (Allopurinol) 300 Mg Tab, 300 MG PO DAILY for 30 Days, MG 02/17/18 Furosemide (Furosemide) 20 Mg Tab, 20 MG PO DAILY for 30 Days, MG 02/17/18 Potassium Chloride (POTASSIUM CHLORIDE CR) 10 Meq Tb, 1 TAB PO DAILY, #30 TAB 5 Refills 02/17/18 Atenolol (Atenolol) 25 Mg Tab, 25 MG PO DAILY for 30 Days, MG 02/17/18 Current Medications Current Medications Medications (Trade) Dose Ordered Sig/Akhil Route PRN Reason Start Time Stop Time Status Last Admin Potassium Chloride/Sodium Chloride 1,000 ml @ 100 mls/hr Q10H IV 12/27/24 09:30 Vital Signs Vital Signs Date Time Temp Pulse Resp B/P (MAP) Pulse Ox O2 Delivery O2 Flow Rate FiO2 12/27/24 10:02 115/76 12/27/24 10:02 74 12/27/24 08:00 98.2 16 96 98.2 12/27/24 08:00 Room Air* 0 21 Labs/Diagnostic Data Labs Test 12/27/24 09:39 12/26/24 04:57 12/25/24 12:40 12/24/24 15:15 Range/Units Sodium Level 142 136-145 mmol/L Potassium Level 3.5 3.5-5.1 mmol/L Chloride Level 107 98-107 mmol/L Carbon Dioxide Level 27 20-31 mmol/L Anion Gap 8 5-15 Blood Urea Nitrogen 19 9-23 mg/dL Creatinine 1.33 H 0.700-1.30 mg/dL Glomerular Filtration Rate Calc 56 >90 mL/min BUN/Creatinine Ratio 14.3 10.0-20.0 Serum Glucose 97 74-106 mg/dL Calcium Level 9.9 8.7-10.4 mg/dL Magnesium Level 2.0 1.6-2.6 mg/dL White Blood Count 6.3 4.4-10.8 10^3/uL Red Blood Count 3.72 L 4.5-5.90 10^6/uL Hemoglobin 11.3 L 13.5-17.5 g/dL Hematocrit 34.5 L 41.0-53.0 % Mean Corpuscular Volume 92.6 80.0-100.0 fL Mean Corpuscular Hemoglobin 30.5 28.0-32.0 pg Mean Corpuscular Hemoglobin Concent 32.9 32.0-36.0 g/dL Red Cell Distribution Width 16.2 H 11.8-14.3 % Platelet Count 119 L 140-450 10^3/uL Mean Platelet Volume 9.9 6.9-10.8 fL Neutrophils (%) (Auto) 60.1 37.0-80.0 % Lymphocytes (%) (Auto) 22.4 10.0-50.0 % Monocytes (%) (Auto) 9.6 0.0-12.0 % Eosinophils (%) (Auto) 7.2 H 0.0-7.0 % Basophils (%) (Auto) 0.7 0.0-2.0 % Neutrophils # (Auto) 3.8 1.6-8.6 10 ^3/uL Lymphocytes # (Auto) 1.4 0.4-5.4 10 ^3/uL Monocytes # (Auto) 0.6 0-1.3 10 ^3/uL Eosinophils # (Auto) 0.5 0-0.8 10 ^3/uL Basophils # (Auto) 0 0-0.2 10 ^3/uL Nucleated Red Blood Cells 0.1 % Total Bilirubin 0.5 0.2-1.0 mg/dL Aspartate Amino Transferase (AST) 18 13-40 U/L Alanine Aminotransferase (ALT) 18 7-40 U/L Alkaline Phosphatase 72 46-116 U/L Total Protein 7.2 5.7-8.2 g/dL Albumin 4.1 3.2-4.8 g/dL Urine Color Light-yellow Yellow Urine Clarity Clear Clear Urine pH 5.5 5.0-9.0 Urine Specific [place] 1.008 1.001-1.035 Urine Protein Negative Negative Urine Ketones Negative Negative Urine Blood 1+ H Negative /uL Urine Nitrite Negative Negative Urine Bilirubin Negative Negative Urine Urobilinogen Normal Negative mg/dL Urine Leukocyte Esterase Trace Negative /uL Urine RBC 1 0 - 3 /hpf Urine Microscopic WBC 5 H 0-3 /HPF Urine Squamous Epithelial Cells None seen <5 /hpf Urine Bacteria Few H None Seen /hpf Urine Mucus Few None Seen Urine Glucose Normal Normal mg/dL Urine Hyaline Casts Few 0 - 2 /lpf Test 12/24/24 06:30 12/21/24 15:46 Range/Units Prothrombin Time 11.0 9.3-11.8 sec Prothrombin Time INR 1.04 0.9-1.15 Activated Partial Thromboplast Time 26.2 24.5-34.5 SEC Free Prostate Specific Antigen 1.95 N/A ng/mL Percent Free Prostate Specific Ag 21.9 . % Prostate Specific Antigen Total 8.9 H 0.0-4.0 ng/mL Urine Yeast (Budding) Occasional None Seen /hpf Urine Creatinine 44.90 30.0-125.0 mg/dL Urine Sodium 109 40-220 mmol/L Microbiology Date/Time Source Procedure Growth Status 12/25/24 12:40 Urine - Midstream Clean Catch Urine Culture - Final Complete 12/22/24 15:00 Blood Blood Culture - Preliminary NO GROWTH AFTER 72 HOURS OF INCUBATION. 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 He is allergic to levofloxacin (unclear reaction). Patient presented with prior urinary sepsis requiring PCN tube. He is currently admitted for planned lithotripsy of renal stone. Recent nephrostomy tube exchange performed by interventional radiology. Previously, urine cultures grew VRE (vancomycin-resistant Enterococcus) sensitive to daptomycin and intermediate to linezolid; repeat cultures now demonstrate no growth. The patient remains on daptomycin with plan for continuation perioperatively. Nephrostomy bag is draining clear yellow fluid. Kidney function has been improving since hospitalization in November; currently BUN 20, creatinine 1.42 (previously up to 1.73). Lactic acid was previously elevated (2.3, reason unclear). Urinalysis: occasional yeast, few bacteria, pyuria, leukocytes, negative nitrites. Hemoglobin 12.9, platelets 162. Imaging (see Diagnostic Studies): ultrasound and CT demonstrate left nephrolithiasis with PCN, multiple bladder calculi, enlarged prostate. Plan: - Continue daptomycin through perioperative period for VRE UTI/post-PCN and discontinue 3 days after procedure if clinically stable. - No need for outpatient antibiotics at discharge if patient remains asymptomatic and urine culture remains negative. - Repeat surveillance urine culture 1-2 weeks after lithotripsy to assess for clearance of VRE. - Follow up on operative/lithotripsy report to confirm eradication/breakdown of renal stones. - Nephrology and urology follow-up as appropriate. - Monitor renal function, CBC, and inflammatory markers as clinically indicated. Assessment and plan discussed with the patient as written above. Plan is subject to change pending incorporation of new incoming information/diagnostics. Updates may be added as addenda at the bottom (or top) of this note. Thank you for consult. ID will continue to follow. Please contact Infectious Disease for any questions or concerns. John Russell M.D. [facility] Ph: ? History: The patient's chart and medications were reviewed in detail and the patient was seen and examined. History obtained from: patient Mr. Eddi Hathaway is a 74-year-old male with a past medical history of chronic kidney disease, hypertension, gout, recurrent nephrolithiasis with left percutaneous nephrostomy tube, and prior urinary tract infection due to VRE. He presented for scheduled lithotripsy of renal stone. He had a kidney infection six weeks ago, managed with nephrostomy tube exchange. He has no known diabetes and no other surgical history. He denies smoking, intravenous drug use, or alcohol use. Lives at home. Significant allergy to levofloxacin (reaction unclear). Current home medications are benazepril, allopurinol, furosemide (Lasix), and atenolol. Review of Systems: A complete 10-system review of systems was completed and negative except as noted in the HPI or here. - CONSTITUTIONAL: Denies weight loss, fever, chills. - HEENT: Not discussed. - RESPIRATORY: Denies cough or shortness of breath. - CARDIOVASCULAR: Denies chest pain or palpitations. - GASTROINTESTINAL: Reports nausea, vomiting associated with previous infection; none currently. - GENITOURINARY: No dysuria or urinary frequency at present. Symptoms/signs consistent with PCN tube as per HPI. - MUSCULOSKELETAL: Not discussed. - SKIN: Not discussed. - NEUROLOGICAL: Not discussed. - PSYCHIATRIC: Not discussed. Past Medical History: - Chronic kidney disease - Hypertension - Gout - Recurrent nephrolithiasis with percutaneous nephrostomy tube - Urinary tract infection (VRE) Past Surgical History: No other surgical history reported. Home Medications: - Benazepril - Allopurinol - Furosemide (Lasix) - Atenolol Specific doses and frequencies not provided in transcript. Allergies: - Levofloxacin (reaction unclear) Family History: Not discussed. Social History: - Non-smoker - No IV drug use - No alcohol use - Lives at home - Sexual activity status not discussed - Occupational history not discussed Objective: Vital Signs: On arrival: - Temperature: 90.7F - Blood Pressure: 109/74 mmHg - Pulse: Not clearly provided - Respiratory Rate: 17 - SpO2: 96% on room air Most Recent Laboratory Values (as provided): - Hemoglobin: 12.9 - Platelet count: 162 - BUN: 20-28 (peak 28, improved to 20) - Creatinine: 1.42 (previously up to 1.73) - Sodium: 140 - Lactic acid: 2.3 (elevated) - Troponin: 102 (unclear units/context) - Urinalysis: Occasional yeast, few bacteria, 34 WBCs, 30+ leukocytes, negative nitrites - Urine cultures: prior growth VRE (sensitive to daptomycin, intermediate to linezolid); most recent culture no growth Physical Exam: General: NAD Neck: Supple. No masses. HEENT: PERRL. Normal lids and conjunctiva. Moist mucous membranes. Oropharynx without lesions, exudates or excessive erythema. Normal appearance of the external aspects of the nose and ears. Heart: Regular rhythm, normal rate. No murmur. No lower extremity edema. Lungs: Normal respiratory effort. Clear to auscultation bilaterally. No wheezes. No crackles. Abdomen: Soft. Non-tender. Non-distended. No masses or abdominal hernia. Msk: No digital cyanosis. Normal strength and tone in all 4 limbs Skin: Warm and dry, no rashes. Neuro: Alert. No facial droop or slurred speech. Extra-ocular movements intact. Sensation intact to soft touch in all 4 limbs. Psych: Appropriate mood. Full affect. Oriented to person, place, time, and situation. Lines: - Left nephrostomy tube (described as draining clear yellow fluid) - Peripheral IV (duration not provided) Diagnostic Studies: Available diagnostic studies were reviewed personally. Significant relevant results and findings are outlined below or addressed in the Assessment and Plan above. Pertinent Imaging: - Renal Ultrasound (12/21): Increased echogenicity of bilateral kidneys; left nephrolithiasis with PCN tube in situ; multiple bladder calculi; enlarged prostate - CT abdomen/pelvis: Bilateral renal cysts, bilateral nephrolithiasis, left PCN tube with minimal hydronephrosis; multiple bladder calculi; prostate 7.3 x 5.5 cm Microbiology: - Urine culture: previous VRE, sensitive to daptomycin, intermediate to linezolid; most recent no growth - Repeat urine cultures pending Laboratory Summary: See above under Objective. Plan for Procedures: - Scheduled lithotripsy of renal stone - Surveillance urine culture post-procedure Isolation Precautions: contact Plan discussed with: Patient JOHN RUSSELL MD Dec 27, 2024 12:40
[2024-12-27] MEDS ORDERED: ePHEDrine SULFATE 50 MG/ML AMP ONE (13:01)
[2024-12-27] MEDS: IOHEXOL 300 MG/ML 100ML BOTTLE IJ ONE (13:20)
--- NOTE | 2024-12-27 13:59 | DVHNC2 ---
Procedure - OPERATIVE REPORT Pre-op. Diagnosis: Ureteral Stone - LEFT Proximal 7 mm Hydronephrosis - LEFT Flank Pain - LEFT bilateral nephrolithiasis- 4 to 6 mm left nephrostomy tube in-situ bladder calculi- multiple 2-3 cm BPH- trilobar hyperplasia Post-op. Diagnosis: Same as pre-op diagnosis Operation: Extracorporeal Shockwave Lithotripsy - LEFT Cystoscopy, Ureteral stent placement - LEFT Cystoscopy with removal of small bladder stone Aburto catheter placement Anesthesia: General Indications: Informed Consent: Options were discussed. Treatments can include conservative therapy, Extra-corporeal shockwave therapy (ESWL), Ureteroscopy with laser lithotripsy vs extraction, PCNL (percutaneous nephrolithotomy); with or without the use of Stents or retrograde pyelography. Corresponding advantages and disadvantages were also discussed. Questions were addressed. Patient wishes to proceed with left ESWL and possible cystoscopy with left ureteral stent placement. Risks and benefits of the surgery were reviewed with patient which include but are not limited to infection, bleeding, urosepsis, renal hemorrhage/hematoma formation, ureteral perforation, ureteral stricture formation, need for further surgery if stone does not break, ureteral obstruction from stone fragments, cardiac arrthymia and risks of anesthesia. Despite these risks, patient wishes to proceed with the surgery. Patient fully understood and signed the consent. Details of Procedure: Under satisfactory anesthesia, the patient was positioned on the lithotripsy table in lithotomy position. Cystoscope was assembled then used to access the urethra in the bladder. Prostate was significantly enlarged. Multiple bladder stones were identified and smaller stone was removed using stone basket. The left ureteric orifice was cannulated with sensory guidewire and a 5F x 24cm polaris loop ureteral stent was placed. Proximal ureteral calculus was maneuvered into the renal pelvis with the stent placement. The left percutaneous nephrostomy tube was removed under fluoroscopy. Patient was then repositioned on the lithotripsy table in supine. Using fluoroscopy the left ureteral stone was localized . Starting at low energy levels, shockwave treatment was commenced. The energy level was gradually increased and stone was fragmented. Specimens: Small bladder stone retrieved Complications: None Findings: Stone Laterality: Left Stone Location: proximal ureteral calculus maneuvered into the renal pelvis, 2nd stone was noted to be in the lower pole of the left kidney Shocks Delivered: 2400 [employer] Power settin Fragmentation Quality: Well Ureteral stent size & length: five [place] by 26 cm polaris loop ureteral stent Notes: the stent will be removed when patient undergoes right-sided extracorporeal shockwave lithotripsy and laser cystolithoalapxy in approximately 2-3 weeks JOSE REESE MD Dec 27, 2024 13:59
[2024-12-27 14:20] VITALS: PULSE 73; RESP 17; O2SAT 99
[2024-12-27] MEDS: SOD CHL 0.45% WITH 20MEQ KCL 1,000 ML IV SCH (15:27)
[2024-12-27 17:00] VITALS: BP 106/72; PULSE 72; RESP 18; TEMP 97.8; O2SAT 93
[2024-12-27 20:00] VITALS: PULSE 74; RESP 16; O2SAT 96
[2024-12-27] MEDS: ACETAMINOPHEN 325 MG TAB PO PRN (20:47)
[2024-12-27 21:00] VITALS: BP 113/78; PULSE 86; RESP 18; TEMP 97.5; O2SAT 95
--- NOTE | 2024-12-27 23:21 | DVHPN2 ---
Consult Progress Note Date Seen: Dec 25, 2024 Subjective Patient reports: Other (not having any side pain or flank pain , nephorostomy tube has been exchanged and having clear urine output) Objective vital signs Vital Sign Date Time Temp Pulse Resp B/P (MAP) Pulse Ox O2 Delivery O2 Flow Rate FiO2 12/27/24 21:00 97.5 86 18 113/78 (90) 95 97.5 12/27/24 15:00 Room Air 96 12/27/24 14:20 7.0 Total Intake and Output 12/26/24 12/26/24 12/27/24 14:59 22:59 06:59 Intake Total 1460 ml 800 ml Output Total 700 ml 1000 ml Balance 760 ml -200 ml medications Current Medications Medications Dose Ordered Sig/Akhil Route Start Time Stop Time Status Last Admin Dose Admin Sodium Chloride 10 ml Q8HR IV 12/21/24 22:00 12/27/24 05:20 10 ML Docusate Sodium 100 mg BIDPRN PRN PO 12/21/24 19:00 Acetaminophen 650 mg Q6HP PRN PO 12/21/24 19:00 12/27/24 20:47 650 MG Acetaminophen/ Hydrocodone Bitart 1 tab Q4HP PRN PO 12/21/24 19:00 Ondansetron HCl 4 mg Q4HP PRN IV 12/21/24 19:00 Atenolol 25 mg DAILY PO 12/22/24 10:00 12/27/24 10:02 25 MG Furosemide 20 mg DAILY PO 12/22/24 10:00 12/27/24 10:02 20 MG Allopurinol 300 mg DAILY PO 12/22/24 10:00 12/27/24 10:01 300 MG Tamsulosin HCl 0.4 mg QPM PO 12/23/24 18:00 12/27/24 17:31 0.4 MG Daptomycin 500 mg/ Sodium Chloride 50 ml @ 100 mls/hr DAILY IV 12/24/24 17:00 12/27/24 10:01 100 MLS/HR Potassium Chloride/Sodium Chloride 1,000 ml @ 100 mls/hr Q10H IV 12/27/24 09:30 12/27/24 15:27 100 MLS/HR Physical Exam: General: NAD Neck: Supple. No masses. HEENT: PERRL. Normal lids and conjunctiva. Moist mucous membranes. Oropharynx without lesions, exudates or excessive erythema. Normal appearance of the external aspects of the nose and ears. Heart: Regular rhythm, normal rate. No murmur. No lower extremity edema. Lungs: Normal respiratory effort. Clear to auscultation bilaterally. No wheezes. No crackles. Abdomen: Soft. Non-tender. Non-distended. No masses or abdominal hernia. Msk: No digital cyanosis. Normal strength and tone in all 4 limbs Skin: Warm and dry, no rashes. Neuro: Alert. No facial droop or slurred speech. Extra-ocular movements intact. Sensation intact to soft touch in all 4 limbs. Psych: Appropriate mood. Full affect. Oriented to person, place, time, and situation. laboratory and microbiology Laboratory Tests 12/27/24 09:39 12/26/24 04:57 Test 12/27/24 09:39 Range/Units Serum Glucose 97 74-106 mg/dL Problem List/Assessment/Plan Problems(with codes): (1) UTI (urinary tract infection) due to Enterococcus (2) Foreign body in genitourinary tract, part unspecified, initial encounter (3) Hydronephrosis, left (4) Calculus in bladder (5) Cyst of kidney, acquired (6) Acute kidney injury superimposed on CKD (7) Sepsis due to urinary tract infection (8) Acute UTI Problem List/Assessment/Plan ASSESSMENT AND PLAN ID Problem List: - Chronic kidney disease (CKD) - Left nephrolithiasis status post percutaneous nephrostomy (PCN) tube - 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 He is allergic to levofloxacin (unclear reaction). Patient presented with prior urinary sepsis requiring PCN tube. He is currently admitted for planned lithotripsy of renal stone. Recent nephrostomy tube exchange performed by interventional radiology. Previously, urine cultures grew VRE (vancomycin-resistant Enterococcus) sensitive to daptomycin and intermediate to linezolid; repeat cultures now demonstrate no growth. The patient remains on daptomycin with plan for continuation perioperatively. Nephrostomy bag is draining clear yellow fluid. Kidney function has been improving since hospitalization in November; currently BUN 20, creatinine 1.42 (previously up to 1.73). Lactic acid was previously elevated (2.3, reason unclear). Urinalysis: occasional yeast, few bacteria, pyuria, leukocytes, negative nitrites. Hemoglobin 12.9, platelets 162. Imaging (see Diagnostic Studies): ultrasound and CT demonstrate left nephrolithiasis with PCN, multiple bladder calculi, enlarged prostate. 12/25: continues to be asymptomatic from kidney stone or UTI Plan: - Continue daptomycin through perioperative period for VRE UTI/post-PCN and discontinue 3 days after procedure if clinically stable. - No need for outpatient antibiotics at discharge if patient remains asymptomatic and urine culture remains negative. - Repeat surveillance urine culture 1-2 weeks after lithotripsy to assess for clearance of VRE. - Follow up on operative/lithotripsy report to confirm eradication/breakdown of renal stones. - Nephrology and urology follow-up as appropriate. - Monitor renal function, CBC, and inflammatory markers as clinically indicated. Plan discussed with: Other Dietary Evaluation Review Comments: 1. Currently on Renal Standard diet, overly restrictive; kideny fx stable/improved, nephrology signed off - would change to Regular diet as tolerated, resume diet for CKD upon D/C 2. Continue antibiotic therapy, ID cx pending 3. Encourage good PO intakes >75% of meals Expected Outcomes/Goals: Maintain adequate nutrition. JOHN YAO MD Dec 27, 2024 23:20
--- NOTE | 2024-12-27 23:25 | DVHPN2 ---
Consult Progress Note Date Seen: Dec 25, 2024 Subjective Patient reports: Other (Not having any diarrhea or aches , nephrostomy tube is drainign clear urine ) Objective vital signs Vital Sign Date Time Temp Pulse Resp B/P (MAP) Pulse Ox O2 Delivery O2 Flow Rate FiO2 12/27/24 21:00 97.5 86 18 113/78 (90) 95 97.5 12/27/24 15:00 Room Air 96 12/27/24 14:20 7.0 Total Intake and Output 12/26/24 12/26/24 12/27/24 14:59 22:59 06:59 Intake Total 1460 ml 800 ml Output Total 700 ml 1000 ml Balance 760 ml -200 ml medications Current Medications Medications Dose Ordered Sig/Akhil Route Start Time Stop Time Status Last Admin Dose Admin Sodium Chloride 10 ml Q8HR IV 12/21/24 22:00 12/27/24 05:20 10 ML Docusate Sodium 100 mg BIDPRN PRN PO 12/21/24 19:00 Acetaminophen 650 mg Q6HP PRN PO 12/21/24 19:00 12/27/24 20:47 650 MG Acetaminophen/ Hydrocodone Bitart 1 tab Q4HP PRN PO 12/21/24 19:00 Ondansetron HCl 4 mg Q4HP PRN IV 12/21/24 19:00 Atenolol 25 mg DAILY PO 12/22/24 10:00 12/27/24 10:02 25 MG Furosemide 20 mg DAILY PO 12/22/24 10:00 12/27/24 10:02 20 MG Allopurinol 300 mg DAILY PO 12/22/24 10:00 12/27/24 10:01 300 MG Tamsulosin HCl 0.4 mg QPM PO 12/23/24 18:00 12/27/24 17:31 0.4 MG Daptomycin 500 mg/ Sodium Chloride 50 ml @ 100 mls/hr DAILY IV 12/24/24 17:00 12/27/24 10:01 100 MLS/HR Potassium Chloride/Sodium Chloride 1,000 ml @ 100 mls/hr Q10H IV 12/27/24 09:30 12/27/24 15:27 100 MLS/HR Physical Exam: General: NAD Neck: Supple. No masses. HEENT: PERRL. Normal lids and conjunctiva. Moist mucous membranes. Oropharynx without lesions, exudates or excessive erythema. Normal appearance of the external aspects of the nose and ears. Heart: Regular rhythm, normal rate. No murmur. No lower extremity edema. Lungs: Normal respiratory effort. Clear to auscultation bilaterally. No wheezes. No crackles. Abdomen: Soft. Non-tender. Non-distended. No masses or abdominal hernia. Msk: No digital cyanosis. Normal strength and tone in all 4 limbs Skin: Warm and dry, no rashes. Neuro: Alert. No facial droop or slurred speech. Extra-ocular movements intact. Sensation intact to soft touch in all 4 limbs. Psych: Appropriate mood. Full affect. Oriented to person, place, time, and situation. laboratory and microbiology Laboratory Tests 12/27/24 09:39 12/26/24 04:57 Test 12/27/24 09:39 Range/Units Serum Glucose 97 74-106 mg/dL Problem List/Assessment/Plan Problems(with codes): (1) Cyst of kidney, acquired (2) Calculus in bladder (3) Foreign body in genitourinary tract, part unspecified, initial encounter (4) Hydronephrosis, left (5) UTI (urinary tract infection) due to Enterococcus (6) Acute kidney injury superimposed on CKD (7) Acute UTI (8) Sepsis due to urinary tract infection Problem List/Assessment/Plan ASSESSMENT AND PLAN ID Problem List: - Chronic kidney disease (CKD) - Left nephrolithiasis status post percutaneous nephrostomy (PCN) tube - 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 He is allergic to levofloxacin (unclear reaction). Patient presented with prior urinary sepsis requiring PCN tube. He is currently admitted for planned lithotripsy of renal stone. Recent nephrostomy tube exchange performed by interventional radiology. Previously, urine cultures grew VRE (vancomycin-resistant Enterococcus) sensitive to daptomycin and intermediate to linezolid; repeat cultures now demonstrate no growth. The patient remains on daptomycin with plan for continuation perioperatively. Nephrostomy bag is draining clear yellow fluid. Kidney function has been improving since hospitalization in November; currently BUN 20, creatinine 1.42 (previously up to 1.73). Lactic acid was previously elevated (2.3, reason unclear). Urinalysis: occasional yeast, few bacteria, pyuria, leukocytes, negative nitrites. Hemoglobin 12.9, platelets 162. Imaging (see Diagnostic Studies): ultrasound and CT demonstrate left nephrolithiasis with PCN, multiple bladder calculi, enlarged prostate. 12/25: continues to be asymptomatic from kidney stone or UTI 12/26: Patient is getting a kidney stone lithotripsy on 12/27 , currently does not have any symptoms and is tolerating antibiotics Plan: - Continue daptomycin through perioperative period for VRE UTI/post-PCN and discontinue 3 days after procedure if clinically stable. - No need for outpatient antibiotics at discharge if patient remains asymptomatic and urine culture remains negative. - Repeat surveillance urine culture 1-2 weeks after lithotripsy to assess for clearance of VRE. - Follow up on operative/lithotripsy report to confirm eradication/breakdown of renal stones. - Nephrology and urology follow-up as appropriate. - Monitor renal function, CBC, and inflammatory markers as clinically indicated. Plan discussed with: Other Dietary Evaluation Review Comments: 1. Currently on Renal Standard diet, overly restrictive; kideny fx stable/improved, nephrology signed off - would change to Regular diet as tolerated, resume diet for CKD upon D/C 2. Continue antibiotic therapy, ID cx pending 3. Encourage good PO intakes >75% of meals Expected Outcomes/Goals: Maintain adequate nutrition. JOHN YAO MD Dec 27, 2024 23:25
--- NOTE | 2024-12-27 23:32 | DVHPN2 ---
Consult Progress Note Date Seen: Dec 27, 2024 Subjective Patient reports: Other (underwent lithotripsy today and is tolerating post-op without any fatigue or pain , nephrostomy tube is without any blood ) Objective vital signs Vital Sign Date Time Temp Pulse Resp B/P (MAP) Pulse Ox O2 Delivery O2 Flow Rate FiO2 12/27/24 21:00 97.5 86 18 113/78 (90) 95 97.5 12/27/24 15:00 Room Air 96 12/27/24 14:20 7.0 Total Intake and Output 12/26/24 12/26/24 12/27/24 14:59 22:59 06:59 Intake Total 1460 ml 800 ml Output Total 700 ml 1000 ml Balance 760 ml -200 ml medications Current Medications Medications Dose Ordered Sig/Akhil Route Start Time Stop Time Status Last Admin Dose Admin Sodium Chloride 10 ml Q8HR IV 12/21/24 22:00 12/27/24 05:20 10 ML Docusate Sodium 100 mg BIDPRN PRN PO 12/21/24 19:00 Acetaminophen 650 mg Q6HP PRN PO 12/21/24 19:00 12/27/24 20:47 650 MG Acetaminophen/ Hydrocodone Bitart 1 tab Q4HP PRN PO 12/21/24 19:00 Ondansetron HCl 4 mg Q4HP PRN IV 12/21/24 19:00 Atenolol 25 mg DAILY PO 12/22/24 10:00 12/27/24 10:02 25 MG Furosemide 20 mg DAILY PO 12/22/24 10:00 12/27/24 10:02 20 MG Allopurinol 300 mg DAILY PO 12/22/24 10:00 12/27/24 10:01 300 MG Tamsulosin HCl 0.4 mg QPM PO 12/23/24 18:00 12/27/24 17:31 0.4 MG Daptomycin 500 mg/ Sodium Chloride 50 ml @ 100 mls/hr DAILY IV 12/24/24 17:00 12/27/24 10:01 100 MLS/HR Potassium Chloride/Sodium Chloride 1,000 ml @ 100 mls/hr Q10H IV 12/27/24 09:30 12/27/24 15:27 100 MLS/HR Physical Exam: General: NAD Neck: Supple. No masses. HEENT: PERRL. Normal lids and conjunctiva. Moist mucous membranes. Oropharynx without lesions, exudates or excessive erythema. Normal appearance of the external aspects of the nose and ears. Heart: Regular rhythm, normal rate. No murmur. No lower extremity edema. Lungs: Normal respiratory effort. Clear to auscultation bilaterally. No wheezes. No crackles. Abdomen: Soft. Non-tender. Non-distended. No masses or abdominal hernia. Msk: No digital cyanosis. Normal strength and tone in all 4 limbs Skin: Warm and dry, no rashes. Neuro: Alert. No facial droop or slurred speech. Extra-ocular movements intact. Sensation intact to soft touch in all 4 limbs. Psych: Appropriate mood. Full affect. Oriented to person, place, time, and situation. laboratory and microbiology Laboratory Tests 12/27/24 09:39 12/26/24 04:57 Test 12/27/24 09:39 Range/Units Serum Glucose 97 74-106 mg/dL Problem List/Assessment/Plan Problems(with codes): (1) Sepsis due to urinary tract infection (2) Acute UTI (3) Acute kidney injury superimposed on CKD (4) Cyst of kidney, acquired (5) Calculus in bladder (6) Hydronephrosis, left (7) Foreign body in genitourinary tract, part unspecified, initial encounter (8) UTI (urinary tract infection) due to Enterococcus Problem List/Assessment/Plan ASSESSMENT AND PLAN ID Problem List: - Chronic kidney disease (CKD) - Left nephrolithiasis status post percutaneous nephrostomy (PCN) tube - 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 He is allergic to levofloxacin (unclear reaction). Patient presented with prior urinary sepsis requiring PCN tube. He is currently admitted for planned lithotripsy of renal stone. Recent nephrostomy tube exchange performed by interventional radiology. Previously, urine cultures grew VRE (vancomycin-resistant Enterococcus) sensitive to daptomycin and intermediate to linezolid; repeat cultures now demonstrate no growth. The patient remains on daptomycin with plan for continuation perioperatively. Nephrostomy bag is draining clear yellow fluid. Kidney function has been improving since hospitalization in November; currently BUN 20, creatinine 1.42 (previously up to 1.73). Lactic acid was previously elevated (2.3, reason unclear). Urinalysis: occasional yeast, few bacteria, pyuria, leukocytes, negative nitrites. Hemoglobin 12.9, platelets 162. Imaging (see Diagnostic Studies): ultrasound and CT demonstrate left nephrolithiasis with PCN, multiple bladder calculi, enlarged prostate. 12/25: continues to be asymptomatic from kidney stone or UTI 12/26: Patient is getting a kidney stone lithotripsy on 12/27 , currently does not have any symptoms and is tolerating antibiotics 12/27: underwent lithotripsy , per Dr Meyer operative note the prostate was significantly enlarged from the view of the cystoscope , multiple bladder stones were identified and smaller stones were removed using a stone basket , a left uteric orifice was cannulated and a guide wire loop uretero stent was placed , proximal uretero calculus was maneuvered into the renal pelvis with the stent placement and the left nephrostomy tube was removed and low level shockwave treatment was commenced . multiple stones were retrieved and is now without nephrostomy tube and now with stent Plan: - in light of stent placement would want to avoid getting stent contaminated with prior VRE infection , recommend at least an additional 7-10 days of daptomycin - recommend midline placement for daptomycin to be administered - per urology stent will be removed when patient undergoes additional lithotripsy in an additional 2-3 weeks - when stent is removed , recommend patient follow up with infectious disease in 4 weeks to assure VRE infection has been eradicated - Continue daptomycin through perioperative period for VRE UTI/post-PCN and discontinue 3 days after procedure if clinically stable. - No need for outpatient antibiotics at discharge if patient remains asymptomatic and urine culture remains negative. - Repeat surveillance urine culture 1-2 weeks after lithotripsy to assess for clearance of VRE. - Follow up on operative/lithotripsy report to confirm eradication/breakdown of renal stones. - Nephrology and urology follow-up as appropriate. - Monitor renal function, CBC, and inflammatory markers as clinically indicated. Plan discussed with: Other Dietary Evaluation Review Comments: 1. Currently on Renal Standard diet, overly restrictive; kideny fx stable/improved, nephrology signed off - would change to Regular diet as tolerated, resume diet for CKD upon D/C 2. Continue antibiotic therapy, ID cx pending 3. Encourage good PO intakes >75% of meals Expected Outcomes/Goals: Maintain adequate nutrition. JOHN YAO MD Dec 27, 2024 23:32
[2024-12-28 05:00] VITALS: BP 106/57; PULSE 71; RESP 18; TEMP 97.5; O2SAT 95
[2024-12-28 08:00] VITALS: PULSE 83; RESP 18; O2SAT 94
[2024-12-28 08:59] VITALS: BP 120/70; PULSE 83; RESP 18; TEMP 97.9; O2SAT 94
[2024-12-28 13:00] VITALS: BP 113/73; PULSE 84; RESP 18; TEMP 98; O2SAT 94
--- NOTE | 2024-12-28 13:51 | DVHDS2 ---
Discharge Summary Date of Admission Dec 21, 2024 at 18:48 Date of Discharge: Dec 28, 2024 Admitting Diagnosis Malpositioned nephrostomy tube Labs/Diagnostic Data: Laboratory Results Test 12/27/24 13:20 12/27/24 09:39 12/26/24 04:57 12/25/24 12:40 Sodium Level 142 mmol/L (136-145) Potassium Level 3.5 mmol/L (3.5-5.1) Chloride Level 107 mmol/L (98-107) Carbon Dioxide Level 27 mmol/L (20-31) Anion Gap 8 (5-15) Blood Urea Nitrogen 19 mg/dL (9-23) Creatinine 1.33 mg/dL (0.700-1.30) Glomerular Filtration Rate Calc 56 mL/min (>90) BUN/Creatinine Ratio 14.3 (10.0-20.0) Serum Glucose 97 mg/dL (74-106) Calcium Level 9.9 mg/dL (8.7-10.4) Magnesium Level 2.0 mg/dL (1.6-2.6) White Blood Count 6.3 10^3/uL (4.4-10.8) Red Blood Count 3.72 10^6/uL (4.5-5.90) Hemoglobin 11.3 g/dL (13.5-17.5) Hematocrit 34.5 % (41.0-53.0) Mean Corpuscular Volume 92.6 fL (80.0-100.0) Mean Corpuscular Hemoglobin 30.5 pg (28.0-32.0) Mean Corpuscular Hemoglobin Concent 32.9 g/dL (32.0-36.0) Red Cell Distribution Width 16.2 % (11.8-14.3) Platelet Count 119 10^3/uL (140-450) Mean Platelet Volume 9.9 fL (6.9-10.8) Neutrophils (%) (Auto) 60.1 % (37.0-80.0) Lymphocytes (%) (Auto) 22.4 % (10.0-50.0) Monocytes (%) (Auto) 9.6 % (0.0-12.0) Eosinophils (%) (Auto) 7.2 % (0.0-7.0) Basophils (%) (Auto) 0.7 % (0.0-2.0) Neutrophils # (Auto) 3.8 10 ^3/uL (1.6-8.6) Lymphocytes # (Auto) 1.4 10 ^3/uL (0.4-5.4) Monocytes # (Auto) 0.6 10 ^3/uL (0-1.3) Eosinophils # (Auto) 0.5 10 ^3/uL (0-0.8) Basophils # (Auto) 0 10 ^3/uL (0-0.2) Nucleated Red Blood Cells 0.1 % Total Bilirubin 0.5 mg/dL (0.2-1.0) Aspartate Amino Transferase (AST) 18 U/L (13-40) Alanine Aminotransferase (ALT) 18 U/L (7-40) Alkaline Phosphatase 72 U/L (46-116) Total Protein 7.2 g/dL (5.7-8.2) Albumin 4.1 g/dL (3.2-4.8) Urine Color Light-yellow (Yellow) Urine Clarity Clear (Clear) Urine pH 5.5 (5.0-9.0) Urine Specific [place] 1.008 (1.001-1.035) Urine Protein Negative (Negative) Urine Ketones Negative (Negative) Urine Blood 1+ /uL (Negative) Urine Nitrite Negative (Negative) Urine Bilirubin Negative (Negative) Urine Urobilinogen Normal mg/dL (Negative) Urine Leukocyte Esterase Trace /uL (Negative) Urine RBC 1 /hpf (0 - 3) Urine Microscopic WBC 5 /HPF (0-3) Urine Squamous Epithelial Cells None seen /hpf (<5) Urine Bacteria Few /hpf (None Seen) Urine Mucus Few (None Seen) Urine Glucose Normal mg/dL (Normal) Test 12/24/24 15:15 12/24/24 06:30 12/21/24 15:46 Urine Hyaline Casts Few /lpf (0 - 2) Prothrombin Time 11.0 sec (9.3-11.8) Prothrombin Time INR 1.04 (0.9-1.15) Activated Partial Thromboplast Time 26.2 SEC (24.5-34.5) Free Prostate Specific Antigen 1.95 ng/mL (N/A) Percent Free Prostate Specific Ag 21.9 % (.) Prostate Specific Antigen Total 8.9 ng/mL (0.0-4.0) Urine Yeast (Budding) Occasional /hpf (None Urine Creatinine 44.90 mg/dL (30.0-125.0) Urine Sodium 109 mmol/L (40-220) Other Laboratory Tests 12/27/24 09:39 12/26/24 04:57 Brief Hx & Hospital Course: History of Present Illness 74M presents to the ER w/ Hx of Kidney stones which may be associated to the c/c of a tube replacement. Pt reports on having a kidney infx 6 weeks ago and they placed a nephrostomy bag. Pt's home health care informed the pt that he needs to be tied until his scheduled Sx on Tuesday. PMHx of Gout, and HTN. Denies chills, fever, N/V/D, SOB, CP or no other associated symptoms, modifiers, recent injuries or sick contacts at this time. Course of hospitalization: Patient had growth of VRE from left nephrostomy tube. Nephrostomy tube was replaced. Repeat urine culture from midstream, is negative for any growth. Patient underwent ESWL of left nephrolithiasis as well as placement of ureter stent. Consultation was placed with Infectious Disease given MDRO. Patient was started on daptomycin in the hospital. Given placement of ureter stent, patient will be discharged home with midline and daptomycin for a total of 10-14 days of antibiotic therapy. Aburto catheter will be removed. Patient will follow up with both ID and Neurology for further monitoring and establishment of removal of ureter stent as well as ESWL of remaining bladder and right renal nephrolithiasis. Patient was agreeable with discharge plan. All questions answered. Physical examination General: Alert and Oriented x3. No acute distress. Well-nourished. Eyes: EOMI. Anicteric. HENT: Moist mucous membranes. Lungs: Clear to auscultation bilaterally. No accessory muscle use. Cardiovascular: Regular rate and rhythm. No murmur. No JVD. Abdomen: Soft, non-tender and non-distended. No palpable masses. Extremities: No edema. Non-tender. Skin: No rashes or lesions. Warm. Neurologic: No focal neurological deficits. CN II-XII grossly intact, but not individually tested. Psychiatric: Cooperative. Appropriate mood and affect. Total time spent with patient discussing and formulating plan of care: 35 minutes. This medical document was created using an electronic medical record system with Dragon computerized dictation system. Although this document has been carefully reviewed, there may still be some phonetic and typographical errors. These areas are purely typographical due to imperfections of the software programs, and do not reflect any compromise in the patient's medical care. Consults/Reason for consult Urology: Obstructive uropathy Interventional Radiology: Placement of nephrostomy tube Infectious disease: VRE in the urine Operations or Procedures 12/25/2024: Nephrostomy tube placement 12/27/2024: ESWL with ureter stent placement Condition at Discharge: Fair Final Diagnosis/Problems List Obstructive uropathy with complicated cystitis, VRE Secondary diagnosis: -obstructive uropathy -? Displaced left nephrostomy tube -complicated cystitis, VRE -obesity -primary hypertension -thrombocytopenia Discharge Disposition: Home with Health Services Discharge Instruct/Medications Diet: Cardiac 2g Na,low cholest Activity: No Restrictions, As Tolerated Follow Up/Referral: Dr. Louisa Russell in [address] Meyer in 1-2 weeks Medications: continue all home medications Continue Daptomycin per ID [id number] Discharge Statement: "Patient was advised to return to the ER or call 911 if any headaches, dizziness, shortness of breath, chest pain, abdominal pain, bleeding, fevers, or worsening of medical condition. Patient was counseled about treatment plan, medications, possible side effects, patientverbalized understanding. All questions were answered to the best of my ability. This discharge took greater then 30 minutes in planning, reviewing documentation, counseling the patient, and discussing with other team members." ASSESSMENT ASSESSMENT Assessment Obstructive uropathy with complicated cystitis, VRE Date of Service: Dec 28, 2024 Billing Provider: SIERRA STALEY NP Common Visit Codes: 40158-KHM/OBS DISCH DAY >30min SIERRA STALEY NP Dec 28, 2024 13:51
[2024-12-28 17:00] VITALS: BP 114/71; PULSE 89; RESP 20; TEMP 98; O2SAT 94
--- NOTE | 2024-12-28 21:17 | DVHPN2 ---
Consult Progress Note Date Seen: Dec 28, 2024 Subjective Patient reports: Feels better (sp lithothripy, clear urine) Objective vital signs Vital Sign Date Time Temp Pulse Resp B/P (MAP) Pulse Ox O2 Delivery O2 Flow Rate FiO2 12/28/24 17:00 98.0 89 20 114/71 (85) 94 98.0 12/28/24 08:00 Room Air* 0 21 Total Intake and Output 12/27/24 12/27/24 12/28/24 15:00 23:00 07:00 Intake Total 100 ml 430 ml 600 ml Output Total 800 ml Balance 100 ml 430 ml -200 ml medications PHYSICAL EXAM: - GENERAL: Alert and oriented x 3. No acute distress. Well-nourished. ? - EYES: EOMI. Anicteric. ?- HENT: Moist mucous membranes. No scleral icterus. No cervical lymphadenopathy. ?- LUNGS: Clear to auscultation bilaterally. No accessory muscle use.? - CARDIOVASCULAR: Regular rate and rhythm. No murmur. No JVD.? - ABDOMEN: Soft, non-tender and non-distended. No palpable masses.? - EXTREMITIES: No edema. Non-tender.?SKIN: No rashes or lesions. Warm. ? - NEUROLOGIC: No focal neurological deficits. CN II-XII grossly intact, but not individually tested.? - PSYCHIATRIC: Cooperative. Appropriate mood and affect. laboratory and microbiology Laboratory Tests 12/27/24 09:39 12/26/24 04:57 Test 12/27/24 09:39 Range/Units Serum Glucose 97 74-106 mg/dL Problem List/Assessment/Plan Problem List/Assessment/Plan ASSESSMENT AND PLAN ID Problem List: - Chronic kidney disease (CKD) - Left nephrolithiasis status post percutaneous nephrostomy (PCN) tube - 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 He is allergic to levofloxacin (unclear reaction). Patient presented with prior urinary sepsis requiring PCN tube. He is currently admitted for planned lithotripsy of renal stone. Recent nephrostomy tube exchange performed by interventional radiology. Previously, urine cultures grew VRE (vancomycin-resistant Enterococcus) sensitive to daptomycin and intermediate to linezolid; repeat cultures now demonstrate no growth. The patient remains on daptomycin with plan for continuation perioperatively. Nephrostomy bag is draining clear yellow fluid. Kidney function has been improving since hospitalization in November; currently BUN 20, creatinine 1.42 (previously up to 1.73). Lactic acid was previously elevated (2.3, reason unclear). Urinalysis: occasional yeast, few bacteria, pyuria, leukocytes, negative nitrites. Hemoglobin 12.9, platelets 162. Imaging (see Diagnostic Studies): ultrasound and CT demonstrate left nephrolithiasis with PCN, multiple bladder calculi, enlarged prostate. 12/25: continues to be asymptomatic from kidney stone or UTI 12/26: Patient is getting a kidney stone lithotripsy on 12/27 , currently does not have any symptoms and is tolerating antibiotics 12/27: underwent lithotripsy , per Dr Meyer operative note the prostate was significantly enlarged from the view of the cystoscope , multiple bladder stones were identified and smaller stones were removed using a stone basket , a left uteric orifice was cannulated and a guide wire loop uretero stent was placed , proximal uretero calculus was maneuvered into the renal pelvis with the stent placement and the left nephrostomy tube was removed and low level shockwave treatment was commenced . multiple stones were retrieved and is now without nephrostomy tube and now with stent Plan: - in light of stent placement would want to avoid getting stent contaminated with prior VRE infection , recommend at least an additional 7-10 days of daptomycin - recommend midline placement for daptomycin to be administered - per urology stent will be removed when patient undergoes additional lithotripsy in an additional 2-3 weeks - when stent is removed , recommend patient follow up with infectious disease in 4 weeks to assure VRE infection has been eradicated - Continue daptomycin through perioperative period for VRE UTI/post-PCN and discontinue 3 days after procedure if clinically stable. - No need for outpatient antibiotics at discharge if patient remains asymptomatic and urine culture remains negative. - Repeat surveillance urine culture 1-2 weeks after lithotripsy to assess for clearance of VRE. - Follow up on operative/lithotripsy report to confirm eradication/breakdown of renal stones. - Nephrology and urology follow-up as appropriate. - Monitor renal function, CBC, and inflammatory markers as clinically indicated. Plan discussed with: Patient Dietary Evaluation Review Comments: 1. Currently on Renal Standard diet, overly restrictive; rauly fx stable/improved, nephrology signed off - would change to Regular diet as tolerated, resume diet for CKD upon D/C 2. Continue antibiotic therapy, ID cx pending 3. Encourage good PO intakes >75% of meals Expected Outcomes/Goals: Maintain adequate nutrition. JOHN YAO MD Dec 28, 2024 21:17
== END 2024-12-28 18:15 | disposition home health service (06) | DRG 699 ==
LOC: ER 11:52 → OVERFLOW 18:48 → WEST WING 21:23 → EAST 12-24 20:21
PROVIDERS: ADMIT Nurse Practitioner Acute Care; ATTEND Nurse Practitioner Acute Care
PROC: 0T9430Z Drainage of Left Kidney Pelvis with Drainage Device, Percutaneous Approach (ICD-10-PCS; 2024-12-24)
PROC: BT121ZZ Fluoroscopy of Left Kidney using Low Osmolar Contrast (ICD-10-PCS; 2024-12-24)
PROC: 0TP5X0Z Removal of Drainage Device from Kidney, External Approach (ICD-10-PCS; 2024-12-27)
PROC: 0TCB8ZZ Extirpation of Matter from Bladder, Via Natural or Artificial Opening Endoscopic (ICD-10-PCS; principal; 2024-12-27 12:47)
PROC: 0T7D8DZ Dilation of Urethra with Intraluminal Device, Via Natural or Artificial Opening Endoscopic (ICD-10-PCS; 2024-12-27 12:47)
DX: T83.022A Displacement of nephrostomy catheter, initial encounter (principal); N13.6 Pyonephrosis; N17.9 Acute kidney failure, unspecified; N18.9 Chronic kidney disease, unspecified; N20.0 Calculus of kidney; M10.9 Gout, unspecified; N40.0 Benign prostatic hyperplasia without lower urinary tract symptoms; N28.1 Cyst of kidney, acquired; B95.2 Enterococcus as the cause of diseases classified elsewhere; N21.0 Calculus in bladder; I12.9 Hypertensive chronic kidney disease with stage 1 through stage 4 chronic kidney disease, or unspecified chronic kidney disease; D69.6 Thrombocytopenia, unspecified; E66.9 Obesity, unspecified; Z68.32 Body mass index [BMI] 32.0-32.9, adult; Z79.899 Other long term (current) drug therapy; Z88.1 Allergy status to other antibiotic agents; Y84.8 Other medical procedures as the cause of abnormal reaction of the patient, or of later complication, without mention of misadventure at the time of the procedure; Y92.89 Other specified places as the place of occurrence of the external cause
CPT/HCPCS: 36415; 50432; 71045; 74176; 74425; 76775; 80048; 80053; 81001; 82360; 82570; 83735; 84154; 84300; 85025; 85610; 85730; 87040; 87081; 87086; 87088; 87186; 96361; 96365; 99152; G0378; J1100; J2003; J2250; J2405; J2704

== ENCOUNTER 2025-02-28 06:12 | Day surgery (SDC) | payer MEDICARE ==
[2025-02-27 09:24] LABS: Urine Bacteria None Seen /hpf (None Seen)
[2025-02-27 09:45] LABS: Basophils # (auto) 0 10 ^3/uL (0-0.2); Basophils % (auto) 0.6 % (0.0-2.0); Eosinophils # (auto) 0.2 10 ^3/uL (0-0.8); Eosinophils % (auto) 3.7 % (0.0-7.0); Lymphocytes # (auto) 1.2 10 ^3/uL (0.4-5.4); Lymphocytes % (auto) 18.5 % (10.0-50.0); Mean Corpuscular Hemoglobin 30.8 pg (28.0-32.0); Mean Corpuscular Hgb Conc. 33.2 g/dL (32.0-36.0); Mean Corpuscular Volume 92.8 fL (80.0-100.0); Monocytes # (auto) 0.5 10 ^3/uL (0-1.3); Neutrophils # (auto) 4.5 10 ^3/uL (1.6-8.6); Neutrophils % (auto) 69.2 % (37.0-80.0); Nucleated Red Blood Cells % 0.1 %; Platelet Count (auto) 129 10^3/uL (140-450); Red Blood Cells 4.21 10^6/uL (4.5-5.90); Red Cell Distribution Width 14.8 % (11.8-14.3); Urine Blood TRACE /uL (Negative); Urine Clarity Clear (Clear); Urine Color Light-Yellow (Yellow); Urine Hyaline Cast FEW /lpf (0 - 2); Urine Protein, UAD Negative (Negative); Urine Specific Gravity 1.009 (1.001-1.035); Urine Squamous Epithelial Cell None Seen /hpf (<5); Urine Urobilinogen Normal (Negative); Urine WBC 44 /HPF (0-3); Urine pH 5.5 (5.0-9.0); White Blood Cell 6.5 10^3/uL (4.4-10.8)
[2025-02-27 09:57] LABS: INR 1.02 (0.9-1.15); Partial Thromboplastin Time 27.6 SEC (24.5-34.5); Prothrombin Time 10.8 sec (9.3-11.8)
[2025-02-27 09:58] LABS: Alanine Aminotransferase 20 U/L (7-40); Albumin 4.6 g/dL (3.2-4.8); Alkaline Phosphatase 86 U/L (46-116); Anion Gap 9 (5-15); Aspartate Aminotransferase 21 U/L (<34); BUN/Creatinine Ratio 13.3 (10.0-20.0); Bilirubin, Total 0.5 mg/dL (0.2-1.0); Calcium 10.3 mg/dL (8.7-10.4); Carbon Dioxide 27 mmol/L (20-31); Glucose 104 mg/dL (74-106); Potassium 4.3 mmol/L (3.5-5.1); Sodium 144 mmol/L (136-145); Total Protein 7.7 g/dL (5.7-8.2)
[2025-02-27 10:09] LABS: Blood Urea Nitrogen 24 mg/dL (9-23); Chloride 108 mmol/L (98-107)
[~2025-02-28] VITALS: Ht 165.1 cm; Wt 92.5 kg
[~2025-02-28 06:12] MED LIST changes: +TAMS-35 PO
[2025-02-28] MEDS ORDERED: IOHEXOL 300 MG/ML 100ML BOTTLE IJ ONE (06:48)
[2025-02-28] MEDS ORDERED: GLYCOPYRROLATE 0.2 MG/ML 1ML VIAL ONE (06:51)
[2025-02-28] MEDS ORDERED: KETOROLAC TROMETH 30 MG/ML 1ML VIAL ONE (06:51)
[2025-02-28] MEDS ORDERED: PROPOFOL 10 MG/ML 20 ML IV ONE (06:51)
[2025-02-28] MEDS ORDERED: KETAMINE 50mg/ML 1ml syringe ONE (06:51)
[2025-02-28] MEDS ORDERED: ONDANSETRON HCL 4 MG/2 ML VIAL ONE (06:51)
[2025-02-28] MEDS ORDERED: DexAMETHasone SOD PHOS 10MG/1ML VIAL INJ ONE (06:51)
[2025-02-28] MEDS ORDERED: LIDOCAINE 2% (LOCAL ANESTH.) PF 5ml SDV ONE (06:51)
[2025-02-28] MEDS ORDERED: LIDOCAINE HCL 2% TOP JELLY 5ML TOP ONE (06:51)
[2025-02-28] MEDS ORDERED: ePHEDrine SULFATE 50 MG/ML AMP ONE (08:07)
[2025-02-28] MEDS: ceFAZolin 2 GM/D5W50ml 50 ML IV ONE (08:15)
[2025-02-28] MEDS ORDERED: VASOPRESSIN 20 UNIT/ML ONE (08:24)
[2025-02-28 09:25] VITALS: TEMP 97.5; O2SAT 94
--- NOTE | 2025-02-28 09:44 | DVHDS2 ---
New Physician D'charge PN Admitting Diagnosis Admitting Diagnosis Right nephrolithiasis Left nephrolithiasis Left ureteral stent Bladder calculi Discharge Diagnosis Same Operations or Procedures Right extracorporeal shockwave lithotripsy Shock pulse cysto litholapaxy Left ureteroscope epic laser lithotripsy with renal evacuation of stones Reason(s) For Hospitalization Surgery Treatment Plan Discharge Condition of Discharge Fair Disposition Home Discharge Instructions Diet: Regular Activity: Light activity Activity comment: Aburto catheter management Medications: Given Follow Up Care Follow Up/Referral: One week Discharge Statement: "Patient was advised to return to the ER or call 911 if any headaches, dizziness, shortness of breath, chest pain, abdominal pain, bleeding, fevers, or worsening of medical condition. Patient was counseled about treatment plan, medications, possible side effects, patientverbalized understanding. All questions were answered to the best of my ability. This discharge took greater then 30 minutes in planning, reviewing documentation, counseling the patient, and discussing with other team members." JOSE REESE MD Feb 28, 2025 09:44
[2025-02-28] MEDS ORDERED: fentaNYL CITRATE 100 MCG/2 ML VL IV PRN (09:45)
[2025-02-28] MEDS ORDERED: FLUMAZENIL 0.1 MG/ML INJ 10ML MDV IV PRN (09:45)
[2025-02-28] MEDS ORDERED: HYDROmorphone HCL 2 MG/ML VL/or syr IV PRN (09:45)
[2025-02-28] MEDS ORDERED: ONDANSETRON HCL 4 MG/2 ML VIAL IV PRN (09:45)
[2025-02-28] MEDS ORDERED: hydrALAZINE HCL 20 MG/ML VL IV PRN (09:45)
[2025-02-28] MEDS ORDERED: NALOXONE HCL 0.4 MG/ML VIAL IV PRN (09:45)
[2025-02-28] MEDS ORDERED: ePHEDrine SULFATE 50 MG/ML AMP IV PRN (09:45)
[2025-02-28 10:20] VITALS: BP 105/61; PULSE 72; RESP 15; O2SAT 93
--- NOTE | 2025-02-28 11:06 | DVHNC2 ---
Procedure - OPERATIVE REPORT Pre-op. Diagnosis: Renal Stones- right, 6 mm Left renal stones- 1 cm largest Left ureteral stent Bladder stones Post-op. Diagnosis: Same as pre-op diagnosis Operation: Extracorporeal Shockwave Lithotripsy- Right shock pulse cysto litholapaxy cystoscopy with left ureteral stent removal Left ureteroscopy/pyeloscopy with laser lithotripsy and renal evacuation (CVAC) Aburto catheter placement Anesthesia: General Indications: Patient was found to have symptomatic Urolithiasis. Patient is here to undergo right ESWL therapy, cystolitholapaxy and left pyeloscopy with laser lithotripsy and renal evacuation of stones. Informed Consent: The procedure was explained to the patient. It's risks include but not limited to infection, bleeding, and damage to the kidney. Patient fully understood and signed the consent. Other options such as watchful waiting, Ureteroscopy, Percutaneous surgery and open surgery were also discussed. Details of Procedure: Under satisfactory anesthesia, the patient was positioned on the lithotripsy table. Using fluoroscopy the stone was localized. Starting at low energy levels, shockwave treatment was commenced. The energy level was gradually increased and stone was fragmented. With the patient positioned in the lithotomy, the area of the genitalia prepped and draped in usual sterile fashion. 22 F Cystoscope was used to access the urethra and bladder. The left ureteral stent was grasped and removed. A sensor tip guide wire was advanced through the scope into the left ureter all the way to the left collecting system under fluoroscopic control. I advanced the Calyxo Digital flexible ureteroscope through patent ureter into the renal pelvic. The stones were visualized. Now using a 200 micron laser fiber the stone was blasted into small fragments and suctioned out while in dusting mode. Ureteroscope was then removed and guidewire removed. Next, the 26F Nephroscope was used to access the bladder. Shock/pulse litholapaxy sytem was used to fragment and suction out the stones. Nephroscope was removed and Aburto placed. Patient was placed in supine position in the OR table. Anesthesia was reversed, patient was extubated and transferred awake and in stable conditions to recovery room. Specimens: None renal stone fragments Complications: None None Findings: Stone Laterality: Right Stone Location: Renal 6 mm stone Shocks Delivered: 2400 Max Power settin Fragmentation Quality: Well Notes: The stent was not required due to patency of the ureter JOSE REESE MD Feb 28, 2025 11:06
== END 2025-02-28 10:40 | disposition home or self-care (01) ==
LOC: SUR 06:12
PROVIDERS: ATTEND Urology
DX: N20.0 Calculus of kidney (principal); N21.0 Calculus in bladder; I11.0 Hypertensive heart disease with heart failure; I50.9 Heart failure, unspecified; E66.9 Obesity, unspecified; Z68.33 Body mass index [BMI] 33.0-33.9, adult
CPT/HCPCS: 36415; 50590; 52317; 52353; 80053; 81001; 82360; 85025; 85610; 85730; 87086; 88300; A4315; A4344; C1769; J0690; J1100; J1885; J2003; J2405; J2704; J7030; Q9967